=== PATIENT | female | born 1945 | race Caucasian/White ===

== ENCOUNTER 2022-03-03 10:47 | Inpatient (IN) | payer MEDICARE, SELFPAY ==
[2022-03-03] VITALS (30 sets, daily range): BP systolic 66–173; BP diastolic 39–116; PULSE 83–156; RESP 16–97; TEMP 35.8–36.6; O2SAT 93–98; BMI 34.3; BMI 36.4
--- NOTE | 2022-03-03 10:54 | EKG12_ITS ---
Test Reason : PALP Blood Pressure : / mmHG Vent. Rate : 154 BPM Atrial Rate : 182 BPM P-R Int : 000 ms QRS Dur : 084 ms QT Int : 300 ms P-R-T Axes : 000 -48 086 degrees QTc Int : 480 ms Atrial fibrillation Low voltage QRS Left anterior fascicular block Poor R wave progression Anterior NE, age undetermined, cannot be excluded Abnormal ECG Confirmed by BRYANT TORRES, BESS ([id number]), online editor ASA HAAS ([id number]) on 03/05/2022 9:50:39 AM Referred By: REYMUNDO Confirmed By:BESS HURTADO MD
[2022-03-03 11:03] LABS: Absolute Lymphocyte Count 1.51 X10^3/uL (0.83-4.51); Absolute Neutrophil Count 6.1 X10^3/uL (2.0-7.7); Basophil# 0.08 X10^3/uL; Basophil% 0.9 % (0-1); Eosinophil# 0.09 X10^3/uL; Eosinophils% 1.1 % (0-5); Hematocrit 38.1 % (37-47); Hemoglobin 11.9 g/dL (12.0-15.0); Lymphocyte # 1.51 X10^3/ul (0.83-4.51); Lymphocyte % 17.9 % (19-41); Mean Corp Hgb Conc 31.2 g/dL (32-36); Mean Corpuscular Hgb 26.4 pg (27.0-32.0); Mean Corpuscular Volume 84.7 fL (81-99); Mean Platelet Vol. 9.3 fl (6.2-12.0); Monocyte# 0.57 X10^3/uL; Monocyte% 6.8 % (0-10); NRBC Flagged by Analyzer 0 % (0-5); Neutrophil # 6.13 X10^3/uL (2.7-7.7); Neutrophil % 72.6 % (47-70); Platelet Count 331 K/mm3 (150-450); RBC Distribution Width CV 14.4 % (11.6-14.6); White Blood Count 8.4 K/mm3 (4.4-11.0)
--- NOTE | 2022-03-03 11:03 | EDS_ITS ---
HPI History of Present Illness Chief Complaint: Palpitations Narrative Narrative: 76-year-old female presenting with racing heart rate. She states she was at a regular office visit today when it was noted her heart rate was rapid. Her primary care physician told her to take an ambulance to the emergency room however she stated that she felt otherwise well and had no symptoms and she waited for her to come over and pick her up. She states that she still feels fine. She denies chest pain or shortness of breath. She states that she does have high blood pressure and diabetes but these have been well controlled. No cough, fever, chills. No nausea or vomiting. She is eating and drinking normally. She is making normal urine and stool. [facility] Medical History Diabetes mellitus HTN (hypertension) Home Medications aspirin 81 mg PO DAILY 03/03/22 [History Last Taken Unknown] ezetimibe 10 mg PO DAILY 03/03/22 [History Last Taken Unknown] metformin 500 mg PO BIDCM 03/03/22 [History Last Taken Unknown] pantoprazole 40 mg PO DAILY 03/03/22 [History Last Taken Unknown] valsartan-hydrochlorothiazide 1 tab PO DAILY 03/03/22 [History Last Taken Unknown] Allergy/AdvReac Type Severity Reaction Status Date / Time Jxefevx-EHV-BtR Reductase AdvReac Other Verified 03/03/22 10:58 Inhibitor Social History Smoking Status: Never smoker [facility] ED Constitutional Constitutional ED: Denies chills or fever(s) Eyes Eyes: Denies blurry vision or change in vision ENT ENT ED: Denies rhinorrhea or sore throat Cardiovascular Cardiovascular: Reports palpitations; Denies chest pain Respiratory/Chest Respiratory/Chest: Denies cough or dyspnea Gastrointestinal Gastrointestinal: Denies abdominal pain or nausea Genitourinary Genitourinary ED: Denies dysuria or hematuria Musculoskeletal Musculoskeletal: Denies arthralgias or myalgias Integumentary Denies rash Neurologic Neurologic: Denies headache(s) or weakness Psychiatric Psychiatric: Denies anxiety, depression, suicidal ideation or suicidal thoughts EXAM Physical Exam Const Vital Signs: 03/03/22 10:49 03/03/22 10:54 03/03/22 11:03 Temperature 97.8 F Temperature Source Temporal Pulse Rate 156 H Respiratory Rate 18 Respiratory Effort Normal Non-Labored Respiratory Pattern Normal Blood Pressure 173/116 H Blood Pressure Mean 135 Pulse Ox 98 Oxygen Delivery Method Room Air Room Air 03/03/22 12:45 Temperature Temperature Source Pulse Rate 103 H Respiratory Rate 24 H Respiratory Effort Respiratory Pattern Blood Pressure 107/77 Blood Pressure Mean 87 Pulse Ox 94 Oxygen Delivery Method Room Air Positive well nourished General Appearance ED: NAD; Negative for pallor HEENT Reports moist mucous membranes Negative for trauma Eyes PERRL and EOMs intact bilaterally Neck no lymphadenopathy and supple Resp normal respiratory effort and clear to auscultation bilaterally Cardio Rhythm: abnormal rhythm irregularly irregular GI normal to inspection, nondistended, normoactive bowel sounds Extremity normal to inspection General Extremety ED: Negative for edema or tenderness General Extremity: Negative for edema Neuro oriented x3, CN's II-XII intact bilaterally and no sensory deficits noted Sensorium / Orientation: alert Motor Exam: strength 5/5 throughout Psych mental status grossly normal Skin no rashes or lesions noted General Skin Exam: Negative for jaundice or pallor MDM MDM MDM Narrative Medical decision making narrative: Patient presenting with asymptomatic tachycardia. She states that prior to being told to come to the emergency room she felt well. She feels as though she can feel her heart rate currently but does not have any chest pain. She has felt healthy and was just had a regular office visit. EKG obtained on arrival and interpreted by myself shows atrial fibrillation at a rate of 154 bpm without sign of ST elevation or depression. Patient was given 25 mg of Cardizem IV and her heart rate did respond that she was in the 90s. On my interpretation shows mild pulmonary vascular congestion and cardiomegaly and the radiologist does agree. CBC within normal limits. Electrolytes within normal limits. Creatinine is 1.23 without comparison. GFR is 45. High-sensitivity troponin returned at 8 initially. D-dimer was also elevated at 1.20. CTA of the chest was performed which shows no PE but does not identify cardiomegaly and pulmonary vascular congestion. High-sensitivity troponin returned at 67 on the delta troponin and given her new onset A. fib and elevated troponin I believe she will need to stay in the hospital for this. Patient given aspirin 324 mg. Discussed with hospitalist for admission. Impression: 1. Palpitations 2. New onset atrial fibrillation 3. Elevated D-dimer 4. CHF 5. Elevated troponin Lab Data Attestation: I reviewed the patient's lab results. Labs: Laboratory Results - last 24 hr 03/03/22 03/03/22 03/03/22 10:55 10:55 10:55 WBC 8.4 RBC 4.50 Hgb 11.9 L Hct 38.1 MCV 84.7 MCH 26.4 L MCHC 31.2 L RDW Std Deviation 44.0 H RDW Coeff of Shalini 14.4 Plt Count 331 MPV 9.3 Immature Gran % (Auto) 0.700 Neut % (Auto) 72.6 H Lymph % (Auto) 17.9 L [place] % (Auto) 6.8 Eos % (Auto) 1.1 Baso % (Auto) 0.9 Absolute Neuts (auto) 6.1 Absolute Lymphs (auto) 1.51 Nucleated RBC % 0 D-Dimer Quant (PE/DVT) 1.20 H* Sodium 140 Potassium 3.6 Chloride 107 Carbon Dioxide 25.0 Anion Gap 8 BUN 22 H Creatinine 1.23 H Estim Creat Clear Calc 48.85 Est GFR (MDRD) Af Amer 55 L Est GFR (MDRD) Non-Af 45 L BUN/Creatinine Ratio 17.9 Glucose 172 H Calcium 10.2 H Troponin I High Sens 8 03/03/22 13:23 WBC RBC Hgb Hct MCV MCH MCHC RDW Std Deviation RDW Coeff of Shalini Plt Count MPV Immature Gran % (Auto) Neut % (Auto) Lymph % (Auto) [place] % (Auto) Eos % (Auto) Baso % (Auto) Absolute Neuts (auto) Absolute Lymphs (auto) Nucleated RBC % D-Dimer Quant (PE/DVT) Sodium Potassium Chloride Carbon Dioxide Anion Gap BUN Creatinine Estim Creat Clear Calc Est GFR (MDRD) Af Amer Est GFR (MDRD) Non-Af BUN/Creatinine Ratio Glucose Calcium Troponin I High Sens 67 H Radiography Diagnostic Testing: Clinical Impression(s) from Imaging Studies Chest CTA 03/03/22 11:36 IMPRESSION: No evidence of pulmonary embolism. Findings suggestive of mild degree of CHF. Electronically Signed: Luiz Barbosa MD at 13:29 EDT , Chest X-Ray 03/03/22 11:54 IMPRESSION: Mild degree of cardiomegaly with mild degree of CHF. Electronically Signed: Luiz Barbosa MD at 12:17 EDT , Discharge Plan Triage Chief Complaint: Palpitations ED Provider: Felipe Gonsalez Dx/Rx/DC Orders Prescriptions: No Action metformin 500 mg tablet 500 mg PO BIDCM RF: 0 pantoprazole 40 mg tablet,delayed release (DR/EC) 40 mg PO DAILY RF: 0 ezetimibe 10 mg tablet 10 mg PO DAILY RF: 0 valsartan-hydrochlorothiazide 320-12.5 mg tablet 1 tab PO DAILY RF: 0 aspirin 81 mg Tablet 81 mg PO DAILY RF: 0 Primary Care Provider: Anayeli Sears
[2022-03-03] MEDS: 0.9% Normal Saline 1,000 ML 999 ML IV (11:08)
[2022-03-03] MEDS: dilTIAZem 25 MG/5 ML Vial IV BOLUS (11:08)
[2022-03-03 11:21] LABS: Anion Gap 8 (5-15); BUN 22 mg/dL (7-18); BUN/Creat Ratio 17.9 RATIO (10-20); Calcium,Total 10.2 mg/dL (8.5-10.1); Chloride 107 mmol/L (98-107); Creatinine, Serum 1.23 mg/dL (0.55-1.02); EST Glomerular Filtration Rate 45 mL/min (>60); Est Glom Filt Rate - Afr Amer 55 mL/min (>60); Estimated Creatinine Clearance 48.85 ml/min; Glucose 172 mg/dL (74-106); Potassium 3.6 mmol/L (3.5-5.1); Sodium Level 140 mmol/L (136-145); Troponin-I HS (w/2H Reflex) 8 pg/mL (3.0-54.0)
--- NOTE | 2022-03-03 11:36 | CT_ITS ---
STUDY: CTA CHEST REASON FOR EXAM: Female, 76 years old. Chest pain and tachycardia. RADIATION DOSAGE (If Supplied By Facility): CTDIvol = ( 14.43 ) mGy, DLP = ( 441.75 ) mGycm TECHNIQUE: The examination was performed with the intravenous administration of IV 100mL Isovue-370. Post-processing of the angiographic images was performed, with multiplanar reformation and 3D reconstruction. Individualized dose optimization techniques were used for this CT. COMPARISON: Comparison is made with prior chest radiograph done earlier today. FINDINGS: Normal enhancement of the main pulmonary artery and right and left pulmonary arteries. Normal enhancement of the bilateral peripheral pulmonary arteries. There is no demonstrated pulmonary embolism. There is atherosclerotic calcification of the aortic arch with tortuosity. There is no demonstrated aortic dissection. There are calcifications of the coronary arteries. Small pericardial effusion along the posterior dependent portion of the heart. Normal mediastinum. Normal hilar regions. Normal visualized trachea and bronchi. The lungs are well expanded. Diffuse increased interstitial and interseptal markings more prominent in the upper lobes with minimal area of groundglass appearance in both lungs suggestive of a mild degree of CHF. Normal pleura. Normal chest wall structures. There are degenerative changes of thoracic spine. Small hiatal hernia. CT/CTA Chest W/WO Contrast IMPRESSION: No evidence of pulmonary embolism. Findings suggestive of mild degree of CHF. Electronically Signed: Luiz Barbosa MD at 13:29 EDT ,
--- NOTE | 2022-03-03 11:54 | RAD_ITS ---
STUDY: X-RAY CHEST REASON FOR EXAM: Female, 76 years old. Chest pain TECHNIQUE: Single AP portable view of the chest. COMPARISON: None. FINDINGS: EKG electrodes are seen. Findings in keeping with vascular congestion and mild degree of CHF. There is no demonstrated pleural abnormality. There is mild cardiac enlargement. Normal mediastinum and betty. Normal visualized pulmonary arteries. Normal visualized aortic arch and descending thoracic aorta. There are diffuse degenerative changes of the visualized thoracic spine. Normal visualized ribs, clavicles, and shoulders. There is no demonstrated abnormality of the visualized soft tissue structures of the upper abdomen. RAD/Chest 1 View (Portable) IMPRESSION: Mild degree of cardiomegaly with mild degree of CHF. Electronically Signed: Luiz Barbosa MD at 12:17 EDT ,
[2022-03-03 13:01] LABS: Reflex Troponin-HS? (from REC) Y
[2022-03-03 13:46] LABS: Troponin-I HS 67 pg/mL (3.0-54.0)
--- NOTE | 2022-03-03 13:58 | HP.PCM.HOS_ITS ---
HPI - General General Date of Admission: 03/03/22 HPI Narrative CED TODD, is a 76 F with a PMH as outlined who presents via the ED on 03/03/2022 with a complaint of palpitations. She went to see her PCP today, and said she was having palpitations. She denied any dizziness, lightheaded, nausea or vomiting. She has no history of afib. Her PCP got an ambulance to send her to the ED. REview of systems was otherwise negative. Vitals in the ED were BP of 107/77. RR of 103, RR of 24 and saturating of 94% on room air. CBC showed hemoglobin of 11.9 with WBC of 8.4 and platelets of 331. D-dimer was 1.2. Chemistry showed creatinine of 1.23. Initial troponin was 8 and trended up to 67. CTA of the chest done was negative for any evidence of PE but showed findings suggestive of mild CHF. EKG showed A. fib patient, which appears to be new onset A. fib. She has been admitted to be managed for new onset A. fib. [facility] Medical History (Updated 03/04/22 @ 13:18 by Lesa Fabian) Diabetes mellitus HTN (hypertension) New onset atrial fibrillation (03/03/22) Non-ischemic cardiomyopathy Home Medications aspirin [Aspirin Low-Strength] 81 mg PO DAILY 03/03/22 [History Last Taken 03/03/22] ezetimibe 10 mg PO MOWEFR 03/03/22 [History Last Taken 03/03/22] metformin 1,000 mg PO DAILY 03/03/22 [History Last Taken 03/02/22] metformin 500 mg PO DAILY 03/03/22 [History Last Taken 03/03/22] pantoprazole 40 mg PO DAILY 03/03/22 [History Last Taken 03/03/22] valsartan-hydrochlorothiazide 1 tab PO DAILY 03/03/22 [History Last Taken 03/03/22] Allergy/AdvReac Type Severity Reaction Status Date / Time [id number]-TuD Reductase AdvReac Other Verified 03/03/22 10:58 Inhibitor Surgical History (Updated 03/04/22 @ 13:16 by Lesa Fabian) History of left heart catheterization (03/04/22) Social History household members: spouse housing: house Smoking Status: Never smoker ROS Constitutional Constitutional: Denies anorexia, change in weight, chills, fever(s), malaise or weakness Eyes Eyes: Denies change in vision ENT HEENT: Denies dysphagia or headache(s) Cardiovascular Cardiovascular: Reports palpitations and rapid heart rate; Denies chest pain, dyspnea on exertion, edema, lightheadedness, orthopnea, paroxysmal nocturnal dyspnea or syncope Respiratory/Chest Respiratory/Chest: Denies cough, dyspnea, shortness of breath at rest or shortness of breath with exertion Gastrointestinal Gastrointestinal: Denies abdominal pain Genitourinary Genitourinary: Denies burning urination or dysuria Neurologic Neurologic: Denies confusion Psychiatric Psychiatric: Denies anxiety or depression Endocrine Endocrinology: Denies change in body appearance Hematologic/Lymphatic Hematologic/Lymphatic: Reports easy bleeding; Denies anemia Allergic/Immunologic Allergic/Immunologic: Denies asthma Vital Signs Vital Signs Vital Signs: 03/03/22 10:49 03/03/22 10:54 03/03/22 11:03 Temperature 97.8 F Temperature Source Temporal Pulse Rate 156 H Respiratory Rate 18 Respiratory Effort Normal Non-Labored Respiratory Pattern Normal Blood Pressure 173/116 H Blood Pressure Mean 135 Pulse Ox 98 Oxygen Delivery Method Room Air Room Air 03/03/22 12:45 Temperature Temperature Source Pulse Rate 103 H Respiratory Rate 24 H Respiratory Effort Respiratory Pattern Blood Pressure 107/77 Blood Pressure Mean 87 Pulse Ox 94 Oxygen Delivery Method Room Air Weight Weight: 170 lb Body Mass Index (BMI) 34.3 Physical Exam Const alert and oriented x3 General Appearance: cooperative HEENT normocephalic, head/scalp atraumatic, hearing grossly normal bilaterally and moist oral mucous membranes Eyes PERRL, EOMs intact bilaterally and conjunctivae normal Neck no lymphadenopathy and supple Resp Resp Narrative: diminished breath sounds bibasally, no wheezes or crackles. Cardio Cardio Narrative: tachycardic. New onset afib. GI normal to inspection, nondistended, normoactive bowel sounds, soft to palpation, non-tender and non-distended Extremity normal to inspection, full ROM and no clubbing, cyanosis or edema Peripheral Pulses: Yes pulses 2+ throughout Skin no rashes or lesions noted Neuro oriented x3, CN's II-XII intact bilaterally and moves all extremities Sensorium / Orientation: awake and alert Psych affect normal Results Lab / Micro Data Result Diagrams: 03/04/22 05:05 03/04/22 05:05 Labs: Laboratory Results - last 24 hr 03/03/22 10:55: WBC 8.4, RBC 4.50, Hgb 11.9 L, Hct 38.1, MCV 84.7, MCH 26.4 L, MCHC 31.2 L, RDW Std Deviation 44.0 H, RDW Coeff of Shalini 14.4, Plt Count 331, MPV 9.3, Immature Gran % (Auto) 0.700, Neut % (Auto) 72.6 H, Lymph % (Auto) 17.9 L, [place] % (Auto) 6.8, Eos % (Auto) 1.1, Baso % (Auto) 0.9, Absolute Neuts (auto) 6.1, Absolute Lymphs (auto) 1.51, Nucleated RBC % 0 03/03/22 10:55: Sodium 140, Potassium 3.6, Chloride 107, Carbon Dioxide 25.0, Anion Gap 8, BUN 22 H, Creatinine 1.23 H, Estim Creat Clear Calc 48.85, Est GFR (MDRD) Af Amer 55 L, Est GFR (MDRD) Non-Af 45 L, BUN/Creatinine Ratio 17.9, Glucose 172 H, Calcium 10.2 H, Troponin I High Sens 8 03/03/22 10:55: D-Dimer Quant (PE/DVT) 1.20 H* 03/03/22 13:23: Troponin I High Sens 67 H Radiology Impression Chest CTA 03/03/22 11:36 IMPRESSION: No evidence of pulmonary embolism. Findings suggestive of mild degree of CHF. Electronically Signed: Luiz Barbosa MD at 13:29 EDT , Chest X-Ray 03/03/22 11:54 IMPRESSION: Mild degree of cardiomegaly with mild degree of CHF. Electronically Signed: Luiz Barbosa MD at 12:17 EDT , Assessment & Plan Assessment/Plan (1) Afib: PLAN: #Palpitations due to new onset afib * admit to PCU * HR currently in the 90s * check TSH, get 2D echo * check BNP * start on metoprolol 25mg bid * CHADVASC score: at least 3 (for age and gender as well as hypertension) * start on therapeutic lovenox for stroke prophylaxis * #Hypertension; on valsartan and HCTZ. Started on metoprolol due to afib. #Hyperlipidemia: on ezetimibe #Type 2 diabetes mellitus: on metformin 500mg bid. ISS. Accuchecks ACHS. DVT prophylaxis: lovenox therapeutic bid. Code status: full code * Patient and counseled extensively about different types of CODE STATUS including full code, DNR CCA and DNR CCA. Patient elects to be full code. Total [id number] time 17 minutes. Charges/Coding Visit Charges Inpatient E&M: 96698 Init Hosp L3 Procedures Hospitalists Procedures: 42815 Advncd Care Plan 30 Min
[2022-03-03] MEDS: Aspirin 81 MG TAB.CHEW 324 MG PO (14:11)
[2022-03-03 14:39] LABS: BNP,B-Type NATRIURETIC PEPTIDE 199.9 pg/mL (0-100)
[2022-03-03 14:42] LABS: Thyroid Stim Hormone (TSH) 1.65 uIU/mL (0.358-3.74)
--- NOTE | 2022-03-03 14:50 | ECHOD_ITS ---
Reason For Study: ATRIAL FIB FLUTTER Procedure This was a 2D Doppler, Color Flow transthoracic echocardiogram. The study was technically difficult. due to patients rapid heart rate. Exam performed portable in patient room. Left Ventricle Normal LV size. The estimated ejection fraction is 30 %. There is moderate to severe global hypokinesis of the left ventricle. Right Ventricle Normal size and thickness. Mild global right ventricular systolic dysfunction. Atria Normal left atrium. Normal right atrium. Mitral Valve Normal mitral valve. Tricuspid Valve Normal tricuspid valve. Mild to moderate (1-2+) tricuspid valve insufficiency. Pulmonary artery systolic pressure is 58 mmHg. Aortic Valve Normal aortic valve. Pulmonic Valve Normal pulmonic valve. Great Vessels Normal aortic root. The pulmonary artery is normal size. Normal inferior vena cava. Pericardium/Pleural No pericardial effusion. MMode/2D Measurements & Calculations RVDd: 3.6 cm LAV(MOD-bp): 71.0 ml LA A4 area: 21.1 cm2 LAV(MOD-bp) Indexed: 41.8 ml/m2 LAV(MOD-sp2): 73.1 ml LAV(MOD-sp4): 65.0 ml RA A4 area: 20.7 cm2 Doppler Measurements & Calculations Ao V2 max: 116.6 cm/sec LV V1 max: 72.1 cm/sec TR max ari: 361.6 cm/sec Ao max P.4 mmHg LV V1 max P.1 mmHg TR max P.6 mmHg ECHO/Echo Complete Interpretation Summary Normal LV size. The estimated ejection fraction is 30 %. There is moderate to severe global hypokinesis of the left ventricle. Pulmonary artery systolic pressure is 58 mmHg. Mild to moderate (1-2+) tricuspid valve insufficiency. Ordering Physician: Whit Chadwick Performed By: Mari Zuniga RCS
--- NOTE | 2022-03-03 15:15 | CASEMGMT ---
RN CM ASSOCIATE EDITOR CM to room to meet with patient for initial transition planning/care coordination assessment. RN JOSE introduced self and role at [facility]. Pt voices understanding and consents to assessment at this time. Pt resting in bed in no distress at this time. Pt is A/O at this time and answers all questions appropriately. Care providers, pharmacy, and demographics verified/updated at this time. PCP: Dr Sears Specialists: none Preferred Pharmacy: [facility] Retail Insurance: [place] [facility] Advantage HMO Prescription Benefit: Yes Living Will/HPOA: Has both LW and HPOA, who is her , Cassius LNOK: , Cassius. Sons Douglas and Jose Living Arrangements: Lives w/ in 2-story home w/2 steps to enter. Denies difficulty w/stairs. Independent w/ADL's and IADL's. Works 3 days a week as a [employer] Transportation: Pt states drives self and states no transportation concerns at this time. also drives DME: Has functioning glucometer w/supplies and BP machine. Denies further needs HHC/SNF: No hx of either. No needs identified. Pt wishes to return home and states has no concerns with going home at time of discharge. CM to follow for any discharge planning/needs. Pt voices no concerns/needs at this time. Advised pt to ask for CM if any questions/concerns/needs arise. Voices understanding. PLAN: Home w/spousal support and discharge plans in place. CM to follow for anti-coag @ discharge. Tal PAREDES RN, CM
[2022-03-03] MEDS: Metoprolol Tartrate 25 MG Tablet PO ×2 (15:59→22:22)
[2022-03-03] MEDS: Enoxaparin 80 MG/0.8 ML Syringe SC (16:00)
[2022-03-03 16:40] LABS: Bedside Glucose 161 mg/dL (74-106)
[2022-03-03] MEDS: Insulin Lispro 100 UNIT/ML INSULN.PEN SC (16:42)
[2022-03-03 16:49] LABS: Troponin-I HS 136 pg/mL (3.0-54.0)
--- NOTE | 2022-03-03 17:22 | EKG12_ITS ---
Test Reason : DIAPHORETIC Blood Pressure : / mmHG Vent. Rate : 090 BPM Atrial Rate : 104 BPM P-R Int : 000 ms QRS Dur : 084 ms QT Int : 424 ms P-R-T Axes : 000 -47 260 degrees QTc Int : 518 ms Atrial fibrillation Left axis deviation Low voltage QRS Inferior infarct , age undetermined , cannot be excluded Prolonged QT Poor R wave progression Anterior-Lateral AK, age undetermined, cannot be excluded Abnormal ECG Confirmed by BRYANT TORRES, BESS ([id number]), pictures editor ASA HAAS ([id number]) on 03/06/2022 10:16:28 AM Referred By: SHRADDHA Confirmed By:BESS HURTADO MD
--- NOTE | 2022-03-03 18:04 | CON.PCM.CA_ITS ---
Assessment & Plan Assessment/Plan (1) Afib: PLAN: She does have a history of new onset atrial fibrillation. Her ventricular response rate is uncontrolled at this time. She was initially started on intravenous diltiazem but this appears to have dropped her blood pressure. She is therefore receiving some IV fluids. I would recommend that we start her on low-dose beta-raymon in a.m. and titrate upwards as appropriately I would recommend anticoagulation at this time with Lovenox (2) Cardiomyopathy: PLAN: She does have evidence of a cardiomyopathy the etiology of which is unclear. It could be secondary to hypertensive heart disease. Coronary disease needs to be excluded and I would recommend a left heart catheterization and depending on the findings further recommendations will be made. Ultimately she would need an ARB or Entresto She would also need to be on a beta-raymon to be titrated upwards as appropriate (3) CHF (congestive heart failure), NYHA class II: PLAN: She does have evidence of congestive heart failure with an elevated natruretic peptide level, fine rales at the bases, and chest x-ray and CT findings consistent with the above. After her blood pressure is normalized and she is hemodynamically stable I would recommend diuresis She would also continue on guideline directed medical therapy. Thank you for allowing me to participate in the care of your patient. Please don't hesitate to call if any issues arise. HPI Consult Data Date of Consult: 03/03/22 HPI Narrative HPI Narrative: CED TODD, is a 76 F who presents to her primary physician's office for a routine physical. She is noted on arrival that she had an irregular heartbeat and was sent to the emergency room. She has complained of some fatigue but she denies any chest pain or shortness of breath or paroxysmal nocturnal dyspnea or pedal edema she has had no neck arm or jaw discomfort to suggest angina. In the emergency room she was noted to be in atrial fibrillation with a rapid ventricular response rate she had a CT scan done of her chest which excluded pulmonary embolism. She was given intravenous diltiazem and then started on a diltiazem drip and also given oral metoprolol. She did drop her blood pressure to the 70s with a heart rate also in the 70s and requiring intravenous fluid. At the time that I saw her she appeared to be mentating well with a systolic blood pressure of 77 mmHg. An echocardiogram performed demonstrated that his ejection fraction was approximately 30% with global hypokinesis and cardiology was consulted for further evaluation and management. [facility] Medical History Diabetes mellitus HTN (hypertension) Home Medications aspirin [Aspirin Low-Strength] 81 mg PO DAILY 03/03/22 [History Last Taken 03/03/22] ezetimibe 10 mg PO MOWEFR 03/03/22 [History Last Taken 03/03/22] metformin 1,000 mg PO DAILY 03/03/22 [History Last Taken 03/02/22] metformin 500 mg PO DAILY 03/03/22 [History Last Taken 03/03/22] pantoprazole 40 mg PO DAILY 03/03/22 [History Last Taken 03/03/22] valsartan-hydrochlorothiazide 1 tab PO DAILY 03/03/22 [History Last Taken 03/03/22] Allergy/AdvReac Type Severity Reaction Status Date / Time [id number] Reductase AdvReac Other Verified 03/03/22 10:58 Inhibitor Social History household members: spouse housing: house Smoking Status: Never smoker ROS Constitutional Constitutional: Denies fever(s) or weight loss Eyes Eyes: Reports systems reviewed and no addt'l complaints, except as documented ENT HEENT: Reports systems reviewed and no addt'l complaints, except as documented Cardiovascular Cardiovascular: Denies chest pain at rest, chest pain with activity, dyspnea at rest, dyspnea on exertion, edema, palpitations or paroxysmal nocturnal dyspnea Respiratory/Chest Respiratory/Chest: Denies dyspnea on exertion, productive cough, shortness of breath at rest or shortness of breath with exertion Gastrointestinal Gastrointestinal: Denies change in bowel habits, nausea, vomiting or weight changes Genitourinary Genitourinary: Denies difficulty urinating Musculoskeletal Musculoskeletal: Denies joint stiffness or muscle weakness Integumentary Integumentary: Denies lesions Neurologic Neurologic: Denies dizziness or syncope Psychiatric Psychiatric: Denies anxiety Endocrine Endocrinology: Denies excessive sweating or fatigue Hematologic/Lymphatic Hematologic/Lymphatic: Denies anemia Allergic/Immunologic Allergic/Immunologic: Denies seasonal rhinorrhea Physical Exam Const alert, oriented x3 and no apparent distress General Appearance: cooperative HEENT hearing grossly normal bilaterally Head and Scalp: atraumatic Eyes EOMs intact bilaterally Neck General: normal visual inspection Chest inspection of chest normal and palpation of chest normal Resp normal respiratory effort Auscultation: clear to auscultation bilaterally Cardio S1 normal heart sound and S2 normal heart sound Jugular Venous Distention: JVD Rhythm: abnormal rhythm GI normal to inspection, nondistended, normoactive bowel sounds Extremity normal capillary refill and no pedal edema Peripheral Pulses: Yes pulses 2+ throughout and femoral pulses present Skin no rashes or lesions noted Neuro oriented x3 and CN's II-XII intact bilaterally Psych Appearance: grossly normal and appropriate Risk Stratification Risk Stratification Applicable: No Objective Data Vital Signs: Vital Signs Temp Pulse Resp BP Pulse Ox 97.1 F L 85 97 H 84/60 L 95 03/03/22 15:05 03/03/22 17:45 03/03/22 17:15 03/03/22 17:45 03/03/22 17:00 Oxygen Delivery Method Room Air Weight: 180 lb 5.41 oz Body Mass Index (BMI) 36.4 Intake & Output: Intake and Output for Last 24 Hours 03/01/22 03/02/22 03/03/22 23:59 23:59 23:59 Intake Total 1010.83 / 1010.83 Balance 1010.83 / 1010.83 Lab / Micro Data Result Diagrams: 03/03/22 10:55 03/03/22 10:55 Labs: Laboratory Results - last 24 hr 03/03/22 10:55: WBC 8.4, RBC 4.50, Hgb 11.9 L, Hct 38.1, MCV 84.7, MCH 26.4 L, MCHC 31.2 L, RDW Std Deviation 44.0 H, RDW Coeff of Shalini 14.4, Plt Count 331, MPV 9.3, Immature Gran % (Auto) 0.700, Neut % (Auto) 72.6 H, Lymph % (Auto) 17.9 L, [place] % (Auto) 6.8, Eos % (Auto) 1.1, Baso % (Auto) 0.9, Absolute Neuts (auto) 6.1, Absolute Lymphs (auto) 1.51, Nucleated RBC % 0 03/03/22 10:55: Sodium 140, Potassium 3.6, Chloride 107, Carbon Dioxide 25.0, Anion Gap 8, BUN 22 H, Creatinine 1.23 H, Estim Creat Clear Calc 48.85, Est GFR (MDRD) Af Amer 55 L, Est GFR (MDRD) Non-Af 45 L, BUN/Creatinine Ratio 17.9, Glucose 172 H, Calcium 10.2 H, Troponin I High Sens 8 03/03/22 10:55: D-Dimer Quant (PE/DVT) 1.20 H* 03/03/22 10:55: TSH 1.65 03/03/22 10:55: B-Natriuretic Peptide 199.9 H 03/03/22 13:23: Troponin I High Sens 67 H 03/03/22 16:00: Troponin I High Sens 136 H* 03/03/22 16:34: POC Glucose 161 H Cardiology Labs/Tests 03/03/22 10:55: WBC 8.4, RBC 4.50, Hgb 11.9 L, Hct 38.1, MCV 84.7, MCH 26.4 L, MCHC 31.2 L, Plt Count 331, MPV 9.3, Immature Gran % (Auto) 0.700, Neut % (Auto) 72.6 H, Lymph % (Auto) 17.9 L, [place] % (Auto) 6.8, Eos % (Auto) 1.1, Baso % (Auto) 0.9, Absolute Neuts (auto) 6.1, Nucleated RBC % 0 03/03/22 10:55: Sodium 140, Potassium 3.6, Chloride 107, Carbon Dioxide 25.0, Anion Gap 8, BUN 22 H, Creatinine 1.23 H, Est GFR (MDRD) Af Amer 55 L, Est GFR (MDRD) Non-Af 45 L, BUN/Creatinine Ratio 17.9, Glucose 172 H, Calcium 10.2 H 03/03/22 10:55: D-Dimer Quant (PE/DVT) 1.20 H* 03/03/22 10:55: B-Natriuretic Peptide 199.9 H Rhythm: EKG: ECHO: Stress Test: Cardiac Cath: PCI: CT Surgery: Holter monitor: EPS: PPM: CXR: Chest CT Scan: Radiography Diagnostic Testing: Radiology Impression Chest CTA 03/03/22 11:36 IMPRESSION: No evidence of pulmonary embolism. Findings suggestive of mild degree of CHF. Electronically Signed: Luiz Barbosa MD at 13:29 EDT , Chest X-Ray 03/03/22 11:54 IMPRESSION: Mild degree of cardiomegaly with mild degree of CHF. Electronically Signed: Luiz Barbosa MD at 12:17 EDT , Echocardiogram 03/03/22 14:50 Interpretation Summary Normal LV size. The estimated ejection fraction is 30 %. There is moderate to severe global hypokinesis of the left ventricle. Pulmonary artery systolic pressure is 58 mmHg. Mild to moderate (1-2+) tricuspid valve insufficiency. __ Ordering Physician: Whit Chadwick Performed By: Mari Zuniga RCS
[2022-03-03] MEDS: Digoxin 250 MCG/ML Ampul 500 MCG IV (20:43)
[2022-03-03 22:35] LABS: Bedside Glucose 147 mg/dL (74-106)
[2022-03-04] VITALS (32 sets, daily range): BP systolic 96–141; BP diastolic 67–105; PULSE 83–115; RESP 16–31; TEMP 36.4–37.1; O2SAT 86–100
[2022-03-04 05:18] LABS: Absolute Neutrophil Count 11.8 X10^3/uL (2.0-7.7); Basophil# 0.03 X10^3/uL; Basophil% 0.2 % (0-1); Eosinophil# 0.01 X10^3/uL; Eosinophils% 0.1 % (0-5); Hematocrit 37.9 % (37-47); Hemoglobin 11.8 g/dL (12.0-15.0); Lymphocyte % 8.3 % (19-41); Mean Corp Hgb Conc 31.1 g/dL (32-36); Mean Corpuscular Hgb 26.5 pg (27.0-32.0); Mean Platelet Vol. 10.8 fl (6.2-12.0); Monocyte# 1.25 X10^3/uL; Monocyte% 8.7 % (0-10); NRBC Flagged by Analyzer 0 % (0-5); Neutrophil # 11.81 X10^3/uL (2.7-7.7); Neutrophil % 81.9 % (47-70); Platelet Count 340 K/mm3 (150-450); RBC Distribution Width CV 14.6 % (11.6-14.6); RBC Distribution Width SD 45.1 fl (35.1-43.9); Red Blood Count 4.46 M/mm3 (4.2-5.4); White Blood Count 14.4 K/mm3 (4.4-11.0)
[2022-03-04 05:31] LABS: Anion Gap 9 (5-15); BUN 25 mg/dL (7-18); BUN/Creat Ratio 16.8 RATIO (10-20); Calcium,Total 9.5 mg/dL (8.5-10.1); Chloride 108 mmol/L (98-107); Creatinine, Serum 1.49 mg/dL (0.55-1.02); EST Glomerular Filtration Rate 36 mL/min (>60); Est Glom Filt Rate - Afr Amer 44 mL/min (>60); Estimated Creatinine Clearance 42.78 ml/min; Glucose 174 mg/dL (74-106); Potassium 4.8 mmol/L (3.5-5.1); Sodium Level 139 mmol/L (136-145)
[2022-03-04] MEDS: Losartan Potassium 100 MG Tablet PO (06:33)
[2022-03-04] MEDS: Aspirin 81 MG TAB.CHEW PO (06:33)
[2022-03-04] MEDS: Metoprolol Tartrate 25 MG Tablet PO (06:33)
[2022-03-04] MEDS: 0.9% Normal Saline 1,000 ML 15 ML IV (06:34)
[2022-03-04] MEDS: hydroCHLOROthiazide 12.5mg 12.5 MG PO (06:34)
[2022-03-04] MEDS: Pantoprazole Sodium 40 MG Tablet PO (06:34)
[2022-03-04 06:46] LABS: Bedside Glucose 161 mg/dL (74-106)
--- NOTE | 2022-03-04 06:49 | CON.PCM.CC_ITS ---
Assessment & Plan Assessment/Plan (1) Hypotension: PLAN: RECOMMENDATIONS: 1. Continue current medical management per cardiology recommendations. 2. Proceed with cardiac catheterization. 3. Encourage incentive spirometer use while in bed. 4. Given the patient's lack of further ICU or pulmonary needs, will sign off. Please call with any additional questions. IMPRESSIONS: 1. Hypotension The patient was transferred to the medical intensive care unit yesterday after she developed hypotension, which appears to be secondary to Cardizem utilization for control of her atrial fibrillation. With cessation of the aforementioned medication and gentle IV fluid resuscitation, the patient's hemodynamic status has normalized. 2. New onset atrial fibrillation with cardiomyopathy of unclear etiology Continue current rate/rhythm control strategy per cardiology recommendations. Given the patient's depressed ejection fraction noted on echocardiogram, there are tentative plans to rule out an ischemic etiology with catheterization today. 3. Obesity/hypertension/hyperlipidemia/diabetes mellitus Complicates care, management, recovery and prognosis. Continue home medications as indicated. This note was generated with [employer] dictation software. It may contain incorrect words, spelling, and punctuation that were not noted in checking the note before signing. HPI Consult Data Date of Consult: 03/04/22 HPI Narrative Reason for Consultation: Hypotension HPI Narrative: The patient is a 76-year-old female, with a history as outlined below, who presented to the emergency department on March 03 after being referred there by her primary care provider with heart palpitations. On presentation to the emergency department, the patient was noted to be afebrile but was notably tachycardic and hypertensive. She was subsequently found to be in atrial fibrillation with a rapid ventricular rate. Laboratory evaluation revealed no evidence of a leukocytosis. Chemistry profile was notable for a creatinine of 1.23 with a BNP of 200 and troponin of 67. CTA chest showed no evidence for pulmonary embolism, but did demonstrate mild ground glass changes concerning for edema. The patient was initially medically managed with beta-blockade and Cardizem. She was admitted to the progressive care unit for further management. Unfortunately, the Cardizem led to hemodynamic instability, thus necessitating transfer to the medical intensive care unit. However, after cessation of the calcium channel raymon and fluid resuscitation, the patient's hemodynamic status normalized. She did have an echocardiogram completed last evening which revealed an ejection fraction of approximately 30% with moderate to severe g lobal hypokinesis of the LV with a pulmonary artery systolic pressure estimated to be 58 mmHg. There are tentative plans for cardiac catheterization today. [facility] Medical History Diabetes mellitus HTN (hypertension) Home Medications aspirin [Aspirin Low-Strength] 81 mg PO DAILY 03/03/22 [History Last Taken 03/03/22] ezetimibe 10 mg PO MOWEFR 03/03/22 [History Last Taken 03/03/22] metformin 1,000 mg PO DAILY 03/03/22 [History Last Taken 03/02/22] metformin 500 mg PO DAILY 03/03/22 [History Last Taken 03/03/22] pantoprazole 40 mg PO DAILY 03/03/22 [History Last Taken 03/03/22] valsartan-hydrochlorothiazide 1 tab PO DAILY 03/03/22 [History Last Taken 03/03/22] Allergy/AdvReac Type Severity Reaction Status Date / Time Cohonpi-KJQ-AaR Reductase AdvReac Other Verified 03/03/22 10:58 Inhibitor Social History household members: spouse housing: house Smoking Status: Never smoker ROS Constitutional Constitutional: Denies chills, fatigue or fever(s) Eyes Eyes: Denies blurry vision or change in vision ENT HEENT: Reports dizziness; Denies headache(s) or hoarseness Cardiovascular Cardiovascular: Reports dizziness and irregular heart rhythm; Denies chest pain Respiratory/Chest Respiratory/Chest: Denies chest tightness, cough or dyspnea Gastrointestinal Gastrointestinal: Denies abdominal pain, diarrhea, nausea or vomiting Genitourinary Genitourinary: Denies difficulty urinating Musculoskeletal Musculoskeletal: Denies arthralgias, back pain or joint pain Integumentary Integumentary: Denies lesions, rash or skin ulcer Neurologic Neurologic: Denies abnormal gait or abnormal speech Psychiatric Psychiatric: Denies anxiety or depression Endocrine Endocrinology: Denies fatigue or polydipsia Hematologic/Lymphatic Hematologic/Lymphatic: Denies easy bleeding or easy bruising Physical Exam Const alert, oriented x3 and no apparent distress General Appearance: cooperative Nutritional Appearance: obese HEENT normocephalic, head/scalp atraumatic and moist oral mucous membranes Eyes PERRL, EOMs intact bilaterally and conjunctivae normal Neck supple General: trachea midline Chest inspection of chest normal Resp normal respiratory effort Auscultation: Negative for rales, rhonchi or wheezes Cardio S1 normal heart sound and S2 normal heart sound Rhythm: abnormal rhythm GI normal to inspection, nondistended, normoactive bowel sounds Extremity no clubbing, cyanosis or edema Skin no rashes or lesions noted Neuro CN's II-XII intact bilaterally, moves all extremities and no focal motor deficits Psych cooperative and affect normal Lab / Micro Data Result Diagrams: 03/04/22 05:05 03/04/22 05:05 Labs: Laboratory Results - last 24 hr 03/03/22 10:55: WBC 8.4, RBC 4.50, Hgb 11.9 L, Hct 38.1, MCV 84.7, MCH 26.4 L, MCHC 31.2 L, RDW Std Deviation 44.0 H, RDW Coeff of Shalini 14.4, Plt Count 331, MPV 9.3, Immature Gran % (Auto) 0.700, Neut % (Auto) 72.6 H, Lymph % (Auto) 17.9 L, [place] % (Auto) 6.8, Eos % (Auto) 1.1, Baso % (Auto) 0.9, Absolute Neuts (auto) 6.1, Absolute Lymphs (auto) 1.51, Nucleated RBC % 0 03/03/22 10:55: Sodium 140, Potassium 3.6, Chloride 107, Carbon Dioxide 25.0, Anion Gap 8, BUN 22 H, Creatinine 1.23 H, Estim Creat Clear Calc 48.85, Est GFR (MDRD) Af Amer 55 L, Est GFR (MDRD) Non-Af 45 L, BUN/Creatinine Ratio 17.9, Glucose 172 H, Calcium 10.2 H, Troponin I High Sens 8 03/03/22 10:55: D-Dimer Quant (PE/DVT) 1.20 H* 03/03/22 10:55: TSH 1.65 03/03/22 10:55: B-Natriuretic Peptide 199.9 H 03/03/22 13:23: Troponin I High Sens 67 H 03/03/22 16:00: Troponin I High Sens 136 H* 03/03/22 16:34: POC Glucose 161 H 03/03/22 22:26: POC Glucose 147 H 03/04/22 05:05: WBC 14.4 H, RBC 4.46, Hgb 11.8 L, Hct 37.9, MCV 85.0, MCH 26.5 L , MCHC 31.1 L, RDW Std Deviation 45.1 H, RDW Coeff of Shalini 14.6, Plt Count 340, MPV 10.8, Immature Gran % (Auto) 0.800, Neut % (Auto) 81.9 H, Lymph % (Auto) 8.3 L, [place] % (Auto) 8.7, Eos % (Auto) 0.1, Baso % (Auto) 0.2, Absolute Neuts (auto) 11.8 H, Absolute Lymphs (auto) 1.20, Nucleated RBC % 0 03/04/22 05:05: Sodium 139, Potassium 4.8, Chloride 108 H, Carbon Dioxide 22.0, Anion Gap 9, BUN 25 H, Creatinine 1.49 H, Estim Creat Clear Calc 42.78, Est GFR (MDRD) Af Amer 44 L, Est GFR (MDRD) Non-Af 36 L, BUN/Creatinine Ratio 16.8, Glucose 174 H, Calcium 9.5 03/04/22 06:31: POC Glucose 161 H Radiology Impression Chest CTA 03/03/22 11:36 IMPRESSION: No evidence of pulmonary embolism. Findings suggestive of mild degree of CHF. Electronically Signed: Luiz Barbosa MD at 13:29 EDT , Chest X-Ray 03/03/22 11:54 IMPRESSION: Mild degree of cardiomegaly with mild degree of CHF. Electronically Signed: Luiz Barbosa MD at 12:17 EDT , Echocardiogram 03/03/22 14:50 Interpretation Summary Normal LV size. The estimated ejection fraction is 30 %. There is moderate to severe global hypokinesis of the left ventricle. Pulmonary artery systolic pressure is 58 mmHg. Mild to moderate (1-2+) tricuspid valve insufficiency. Ordering Physician: Whit Chadwick Performed By: Mari Zuniga RCS Charges/Coding Visit Charges Inpatient E&M: 58370 Init Hosp L2
--- NOTE | 2022-03-04 08:33 | CASEMGMT ---
According to the [facility] website, the following are in-network tertiary facilities: [facility], [place], [facility], [place], [facility], [facility], [place], [facility], and . Delvin DENISE CM
--- NOTE | 2022-03-04 09:27 | PN.HOSP_ITS ---
Subjective Subjective Patient seen and examined. She was emergently transferred to the ICU overnight o/a of hypotension due to cardizem drip. She feels much better today, though she says she wasnt able to sleep well. Her heart rate is much better controlled on PO metoprolol. Review of systems is otherwise negative. She is due for cardiac cath today. Objective Data Objective Data Vital Signs: Vital Signs Temp Pulse Resp BP Pulse Ox 97.6 F L 97 23 H 129/90 H 98 03/04/22 08:00 03/04/22 09:00 03/04/22 09:00 03/04/22 09:00 03/04/22 09:00 Oxygen Flow Rate (L/min) 2 Oxygen Delivery Method Room Air Weight: 182 lb 15.739 oz Body Mass Index (BMI) 36.4 Intake & Output: Intake and Output for Last 24 Hours 03/02/22 03/03/22 03/04/22 23:59 23:59 23:59 Intake Total 2330.83 / 2330.83 41.5 / 41.5 Balance 2330.83 / 2330.83 41.5 / 41.5 Lab / Micro Data Result Diagrams: 03/04/22 05:05 03/04/22 05:05 Labs: Laboratory Results - last 24 hr 03/03/22 10:55: WBC 8.4, RBC 4.50, Hgb 11.9 L, Hct 38.1, MCV 84.7, MCH 26.4 L, MCHC 31.2 L, RDW Std Deviation 44.0 H, RDW Coeff of Shalini 14.4, Plt Count 331, MPV 9.3, Immature Gran % (Auto) 0.700, Neut % (Auto) 72.6 H, Lymph % (Auto) 17.9 L, [place] % (Auto) 6.8, Eos % (Auto) 1.1, Baso % (Auto) 0.9, Absolute Neuts (auto) 6.1, Absolute Lymphs (auto) 1.51, Nucleated RBC % 0 03/03/22 10:55: Sodium 140, Potassium 3.6, Chloride 107, Carbon Dioxide 25.0, Anion Gap 8, BUN 22 H, Creatinine 1.23 H, Estim Creat Clear Calc 48.85, Est GFR (MDRD) Af Amer 55 L, Est GFR (MDRD) Non-Af 45 L, BUN/Creatinine Ratio 17.9, Glucose 172 H, Calcium 10.2 H, Troponin I High Sens 8 03/03/22 10:55: D-Dimer Quant (PE/DVT) 1.20 H* 03/03/22 10:55: TSH 1.65 03/03/22 10:55: B-Natriuretic Peptide 199.9 H 03/03/22 13:23: Troponin I High Sens 67 H 03/03/22 16:00: Troponin I High Sens 136 H* 03/03/22 16:34: POC Glucose 161 H 03/03/22 22:26: POC Glucose 147 H 03/04/22 05:05: WBC 14.4 H, RBC 4.46, Hgb 11.8 L, Hct 37.9, MCV 85.0, MCH 26.5 L , MCHC 31.1 L, RDW Std Deviation 45.1 H, RDW Coeff of Shalini 14.6, Plt Count 340, MPV 10.8, Immature Gran % (Auto) 0.800, Neut % (Auto) 81.9 H, Lymph % (Auto) 8.3 L, [place] % (Auto) 8.7, Eos % (Auto) 0.1, Baso % (Auto) 0.2, Absolute Neuts (auto) 11.8 H, Absolute Lymphs (auto) 1.20, Nucleated RBC % 0 03/04/22 05:05: Sodium 139, Potassium 4.8, Chloride 108 H, Carbon Dioxide 22.0, Anion Gap 9, BUN 25 H, Creatinine 1.49 H, Estim Creat Clear Calc 42.78, Est GFR (MDRD) Af Amer 44 L, Est GFR (MDRD) Non-Af 36 L, BUN/Creatinine Ratio 16.8, Glucose 174 H, Calcium 9.5 03/04/22 06:31: POC Glucose 161 H Radiography Diagnostic Testing: Radiology Impression Chest CTA 03/03/22 11:36 IMPRESSION: No evidence of pulmonary embolism. Findings suggestive of mild degree of CHF. Electronically Signed: Luiz Barbosa MD at 13:29 EDT , Chest X-Ray 03/03/22 11:54 IMPRESSION: Mild degree of cardiomegaly with mild degree of CHF. Electronically Signed: Luiz Barbosa MD at 12:17 EDT , Echocardiogram 03/03/22 14:50 Interpretation Summary Normal LV size. The estimated ejection fraction is 30 %. There is moderate to severe global hypokinesis of the left ventricle. Pulmonary artery systolic pressure is 58 mmHg. Mild to moderate (1-2+) tricuspid valve insufficiency. Ordering Physician: Whit Chadwick Performed By: Mari Zuniga RCS Physical Exam Const alert, oriented x3 and no apparent distress General Appearance: cooperative HEENT normocephalic, head/scalp atraumatic, hearing grossly normal bilaterally and moist oral mucous membranes Head and Scalp: normocephalic Eyes PERRL, EOMs intact bilaterally and conjunctivae normal Neck no lymphadenopathy and supple Resp normal respiratory effort Resp Narrative: diminished breath sounds bibasally, no wheezes or crackles. Cardio Cardio Narrative: afib, rate controlled. GI normal to inspection, nondistended, normoactive bowel sounds, soft to palpation, non-tender and non-distended Extremity normal to inspection, full ROM and no clubbing, cyanosis or edema Peripheral Pulses: Yes pulses 2+ throughout Skin no rashes or lesions noted Neuro oriented x3, CN's II-XII intact bilaterally and moves all extremities Sensorium / Orientation: awake and alert Psych affect normal Assessment & Plan Assessment/Plan (1) Afib: PLAN: #New onset afib with RVR * RVR has resolved. HR is now in the 90s * HR went up into the 150s and 160s yesterday after she was admitted to the floor; she was therefore started on cardizem drip, but subsequently became hypotensive, requiring a bolus of NS 500cc * she was eventually transferred to the ICU o/a of hypotension. * 2D echo showed EF of 30% with moderate to severe global hypokinesis of the left ventricle and mild right ventricular systolic dysfunction * TSH was WNL * on metoprolol 25mg bid * cardiology on board * on therapeutic lovenox for stroke prophylaxis * * * #Hypertension; on valsartan and HCTZ. Started on metoprolol due to afib. #Hyperlipidemia: on ezetimibe #Type 2 diabetes mellius: on metformin 500mg bid. ISS. Accuchecks ACHS. DVT prophylaxis: lovenox therapeutic bid. Code status: full code * Charges/Coding Visit Charges Inpatient E&M: 04556 Subs Hosp L2
[2022-03-04] MEDS: 0.9% Saline Lock 10 ML Syringe IV (11:28)
[2022-03-04 11:35] LABS: Bedside Glucose 192 mg/dL (74-106)
--- NOTE | 2022-03-04 13:01 | PN.CARD_ITS ---
Subjective Subjective The patient seen and evaluated. Appears to be doing well. Underwent cardiac catheterization today Objective Data Vital Signs: Vital Signs Temp Pulse Resp BP Pulse Ox 98.4 F 99 25 H 116/92 H 97 03/04/22 10:00 03/04/22 11:05 03/04/22 11:00 03/04/22 11:00 03/04/22 11:00 Oxygen Flow Rate (L/min) 2 Oxygen Delivery Method Nasal Cannula Weight: 182 lb 15.739 oz Body Mass Index (BMI) 36.4 Intake & Output: Intake and Output for Last 24 Hours 03/02/22 03/03/22 03/04/22 23:59 23:59 23:59 Intake Total 2330.83 / 2330.83 41.5 / 41.5 Balance 2330.83 / 2330.83 41.5 / 41.5 Lab / Micro Data Result Diagrams: 03/04/22 05:05 03/04/22 05:05 Labs: Laboratory Results - last 24 hr 03/03/22 10:55: TSH 1.65 03/03/22 10:55: B-Natriuretic Peptide 199.9 H 03/03/22 13:23: Troponin I High Sens 67 H 03/03/22 16:00: Troponin I High Sens 136 H* 03/03/22 16:34: POC Glucose 161 H 03/03/22 22:26: POC Glucose 147 H 03/04/22 05:05: WBC 14.4 H, RBC 4.46, Hgb 11.8 L, Hct 37.9, MCV 85.0, MCH 26.5 L , MCHC 31.1 L, RDW Std Deviation 45.1 H, RDW Coeff of Shalini 14.6, Plt Count 340, MPV 10.8, Immature Gran % (Auto) 0.800, Neut % (Auto) 81.9 H, Lymph % (Auto) 8.3 L, [place] % (Auto) 8.7, Eos % (Auto) 0.1, Baso % (Auto) 0.2, Absolute Neuts (auto) 11.8 H, Absolute Lymphs (auto) 1.20, Nucleated RBC % 0 03/04/22 05:05: Sodium 139, Potassium 4.8, Chloride 108 H, Carbon Dioxide 22.0, Anion Gap 9, BUN 25 H, Creatinine 1.49 H, Estim Creat Clear Calc 42.78, Est GFR (MDRD) Af Amer 44 L, Est GFR (MDRD) Non-Af 36 L, BUN/Creatinine Ratio 16.8, Glucose 174 H, Calcium 9.5 03/04/22 06:31: POC Glucose 161 H 03/04/22 11:01: POC Glucose 192 H Cardiology Labs/Tests 03/03/22 10:55: B-Natriuretic Peptide 199.9 H 03/04/22 05:05: WBC 14.4 H, RBC 4.46, Hgb 11.8 L, Hct 37.9, MCV 85.0, MCH 26.5 L , MCHC 31.1 L, Plt Count 340, MPV 10.8, Immature Gran % (Auto) 0.800, Neut % (Auto) 81.9 H, Lymph % (Auto) 8.3 L, [place] % (Auto) 8.7, Eos % (Auto) 0.1, Baso % (Auto) 0.2, Absolute Neuts (auto) 11.8 H, Nucleated RBC % 0 03/04/22 05:05: Sodium 139, Potassium 4.8, Chloride 108 H, Carbon Dioxide 22.0, Anion Gap 9, BUN 25 H, Creatinine 1.49 H, Est GFR (MDRD) Af Amer 44 L, Est GFR ( MDRD) Non-Af 36 L, BUN/Creatinine Ratio 16.8, Glucose 174 H, Calcium 9.5 Rhythm: EKG: ECHO: Stress Test: Cardiac Cath: PCI: CT Surgery: Holter monitor: EPS: PPM: CXR: Chest CT Scan: Radiography Diagnostic Testing: Radiology Impression Chest CTA 03/03/22 11:36 IMPRESSION: No evidence of pulmonary embolism. Findings suggestive of mild degree of CHF. Electronically Signed: Luiz Barbosa MD at 13:29 EDT , Echocardiogram 03/03/22 14:50 Interpretation Summary Normal LV size. The estimated ejection fraction is 30 %. There is moderate to severe global hypokinesis of the left ventricle. Pulmonary artery systolic pressure is 58 mmHg. Mild to moderate (1-2+) tricuspid valve insufficiency. Ordering Physician: Whit Chadwick Performed By: Mari Zuniga RCS Physical Exam Const alert, oriented x3 and no apparent distress General Appearance: cooperative HEENT hearing grossly normal bilaterally Eyes EOMs intact bilaterally Neck General: normal visual inspection Chest inspection of chest normal and palpation of chest normal Resp normal respiratory effort Auscultation: clear to auscultation bilaterally Cardio S1 normal heart sound and S2 normal heart sound Jugular Venous Distention: JVD Rhythm: abnormal rhythm GI normal to inspection, nondistended, normoactive bowel sounds Extremity normal capillary refill and no pedal edema Skin no rashes or lesions noted Neuro oriented x3 and CN's II-XII intact bilaterally Psych Appearance: grossly normal and appropriate Assessment & Plan Assessment/Plan (1) Afib: PLAN: She does have a history of new onset atrial fibrillation. Her ventricular response rate is uncontrolled at this time. * Would recommend starting her on carvedilol 6.25 mg twice a day * Will start Eliquis 5 mg twice a day (2) Cardiomyopathy: PLAN: She does have evidence of a cardiomyopathy The cardiac catheterization today demonstrated normal coronary arteries with a Takotsubo cardiomyopathy. The exact precipitating stressful factor is not clear at this time. * Would recommend continuing losartan * Continue beta-raymon with carvedilol 6.25 twice a day and titrate upwards as appropriate * Continue low-dose diuretic * Will need a repeat echocardiogram in 6 weeks to 3 months (3) CHF (congestive heart failure), NYHA class II: PLAN: She does have evidence of congestive heart failure with an elevated natruretic peptide level, fine rales at the bases, and chest x-ray and CT findings consistent with the above. After her blood pressure is normalized and she is hemodynamically stable I would recommend diuresis She would also continue on guideline directed medical therapy. Would recommend overnight observation before discharge. Thank you for allowing me to participate in the care of your patient. Please don't hesitate to call if any issues arise.
--- NOTE | 2022-03-04 13:11 | CL.D_ITS ---
Patient Name: CED TODD Study Date: 03/04/2022 Performing: Bernardo Mireles MD Ht: 59 inches 150 cm : 1945 Wt: 183.2 lbs 83 kg Age: 76 Gender: female BSA: 1.78 PROCEDURE(S) PERFORMED [id number])LHC/COR/LV CLINICAL PROFILE AND INDICATIONS Indications: Cardiac Arrythmia, Cardiomyopathy Heart Failure: NYHA Class: 2, Newly Diagnosed: Yes, Heart Failure Type: Systolic Stress/Imaging Stress/Image Study Performed: No CAD Presentations: Symptom unlikely to be ischemic. CONCLUSIONS Cardiomyopathy: Takotsubo RECOMMENDATIONS Medical therapy DESCRIPTION OF PROCEDURE The patient arrived to the procedure lab. The risks and benefits of the procedure as well as a full d escription of our services here and current unavailability of surgical backup were fully explained to the patient and/or their significant other prior to the catheterization. The Timeout was completed, verifying the correct patient and procedure. The patient's procedural site was prepped and draped in the usual fashion. Local anesthetic was given subcutaneously to right radial region with Lidocaine 2% . Using a modified Seldinger technique, arterial access was obtained via the right radial artery, a 6 Fr sheath was inserted. Left Coronary Artery selective angiography was performed in multiple views u sing a 5 Fr. 4.0 Omega catheter. Right Coronary Artery selective angiography was then performed in mu ltiple views using a 5 Fr. 4.0 Omega catheter. Left Ventriculography was performed in RUIZ projection using a 5 Fr. Pigtail catheter. LV to AO pullback pressures were then recorded.The arterial sheath was pulled and a TR Band was applied for hemostasis CORONARY ANGIOGRAPHY DOMINANCE: Right Dominant LEFT HEART ASSESSMENT Left Ventricular Ejection Fraction: by LV Gram 25 % Global Hypokinesis - Severe LEFT MAIN: Angiographically normal LEFT ANTERIOR DESCENDING ARTERY: Angiographically normal CIRCUMFLEX ARTERY: Angiographically normal RIGHT CORONARY ARTERY: Angiographically normal COMPLICATIONS No Complications PROCEDURE MEDICATIONS Fentanyl 50 mcg IV Versed 1 mg IV Versed 1 mg IV Oxygen: 2 L/min via nasal cannula Heparin given IA 03/04/2022 12:29:41 SUMMARY OF HEMODYNAMIC DATA Time AIR REST ECG 11:41:18 ECG 11:41:48 Art 141/74 (93) 12:08:43 AO 137/88 (112) SA 12:31:03 LV 123/20, 23 12:36:44 LV 121/21, 24 12:36:50 LV 115/21, 25 12:37:45 LVp 118/23, 26 12:37:50 AOp 127/84 (105) 12:37:55 Signed By Bernardo Mireles MD On 03/04/2022 13:10:41 Bernardo Mireles MD
[2022-03-04] MEDS: Ezetimibe 10 MG Tablet PO (13:26)
[2022-03-04 13:29] LABS: Troponin-I HS 160 pg/mL (3.0-54.0)
--- NOTE | 2022-03-04 15:49 | CHAPLAIN ---
Type of Pastoral Visit _x__ Initial Visit ___ Follow-up Visit ___ On-call Visit ___ General Patient Visit ___ Spiritual Assessment ___ Family Conference ___ Bereavement ___ Rapid Response ___ Code Blue ___ Other (describe below) Pastoral Care Referral From _x__ Patient ___ Family ___ Nurse ___ Physician ___ Account Support Specialist ___ Distance Education Coordinator ___ Other (describe below) Sacrament/Intervention _x__ Active listening ___ Anointing ___ Rastafarian ___ Bereavement ___ Communion _x__ Daisy exploration ___ _x__ Life review _x__ Prayer ___ Reconciliation ___ Sacrament of Sick _x__ Supportive presence ___ Wedding ___ Other (describe below) Pastoral Comments met with this patient and her spouse while she was in ICU after return from [facility]; pt is alert and sitting in chair; pt is welcoming and talkative; pt speaks of procedure and how it came to be from her doctor's office; pt speaks of desire to go on vacation in a week and to return to her work [employer]; pt also speaks of her hoahaoism and lack of clergy there; pt welcomes prayer and presence for support
[2022-03-04 17:11] LABS: Bedside Glucose 119 mg/dL (74-106)
[2022-03-04] MEDS: Carvedilol 6.25 MG Tablet PO (20:54)
[2022-03-04] MEDS: APIXABAN 5 MG TABLET PO (20:54)
[2022-03-04 22:10] LABS: Bedside Glucose 159 mg/dL (74-106)
[2022-03-05 02:50] VITALS: O2SAT 87
[2022-03-05 03:00] VITALS: BP 106/68; PULSE 91; RESP 16; TEMP 36.6; O2SAT 96
[2022-03-05 03:12] VITALS: PULSE 99
[2022-03-05 06:26] LABS: Absolute Lymphocyte Count 1.45 X10^3/uL (0.83-4.51); Absolute Neutrophil Count 8.3 X10^3/uL (2.0-7.7); Basophil# 0.05 X10^3/uL; Basophil% 0.4 % (0-1); Eosinophil# 0.02 X10^3/uL; Eosinophils% 0.2 % (0-5); Hematocrit 34.8 % (37-47); Hemoglobin 10.7 g/dL (12.0-15.0); Lymphocyte # 1.45 X10^3/ul (0.83-4.51); Lymphocyte % 12.9 % (19-41); Mean Corp Hgb Conc 30.7 g/dL (32-36); Mean Corpuscular Hgb 26.3 pg (27.0-32.0); Mean Corpuscular Volume 85.5 fL (81-99); Mean Platelet Vol. 10.2 fl (6.2-12.0); Monocyte# 1.31 X10^3/uL; Monocyte% 11.6 % (0-10); NRBC Flagged by Analyzer 0 % (0-5); Neutrophil % 73.7 % (47-70); Platelet Count 299 K/mm3 (150-450); RBC Distribution Width CV 14.6 % (11.6-14.6); RBC Distribution Width SD 45.1 fl (35.1-43.9); Red Blood Count 4.07 M/mm3 (4.2-5.4); White Blood Count 11.3 K/mm3 (4.4-11.0)
[2022-03-05 06:35] LABS: Bedside Glucose 154 mg/dL (74-106)
[2022-03-05 06:58] LABS: Anion Gap 8 (5-15); BUN 32 mg/dL (7-18); BUN/Creat Ratio 22.4 RATIO (10-20); Calcium,Total 9.2 mg/dL (8.5-10.1); Chloride 105 mmol/L (98-107); Creatinine, Serum 1.43 mg/dL (0.55-1.02); EST Glomerular Filtration Rate 38 mL/min (>60); Est Glom Filt Rate - Afr Amer 46 mL/min (>60); Estimated Creatinine Clearance 45.22 ml/min; Glucose 147 mg/dL (74-106); Potassium 3.6 mmol/L (3.5-5.1); Sodium Level 137 mmol/L (136-145)
[2022-03-05 07:00] VITALS: PULSE 85
[2022-03-05 07:36] VITALS: O2SAT 97
[2022-03-05] MEDS: APIXABAN 5 MG TABLET PO (08:13)
[2022-03-05] MEDS: Ezetimibe 10 MG Tablet PO (08:13)
[2022-03-05] MEDS: Pantoprazole Sodium 40 MG Tablet PO (08:13)
[2022-03-05] MEDS: Carvedilol 6.25 MG Tablet PO (08:13)
[2022-03-05] MEDS: Losartan Potassium 100 MG Tablet PO (08:13)
[2022-03-05] MEDS: Aspirin 81 MG TAB.CHEW PO (08:14)
[2022-03-05 09:00] VITALS: BP 92/64; PULSE 90; RESP 14; TEMP 36.7; O2SAT 92
--- NOTE | 2022-03-05 09:50 | DS.PCM_ITS ---
Providers Date of Admission: 03/03/22 Primary Care Physician: Dr. Anayeli Sears MD Consultations 03/03/22 17:27 Consult: Cardiology Routine Consulting Provider: Bernardo Mireles Reason for Consult: afib with RVR EMERGENT Consult: No Notified: Yes Date Notified: 03/03/22 Time Notified: 17:28 Method of Notification: Verbal 03/04/22 01:42 Consult: Supervisor [employer] / Pulmonary Medicine Routine Consulting Provider: Pulmonary Medicine richie Carolina Reason for Consult: Hypotension EMERGENT Consult: No Notified: Yes Date Notified: 03/04/22 Time Notified: 01:42 Method of Notification: Text Reason For Visit: AFIB Diagnosis Discharge Diagnosis (1) Afib: Status: Deleted Code(s): I48.91 - Unspecified atrial fibrillation (2) Non-ischemic cardiomyopathy: Status: Acute Code(s): I42.8 - Other cardiomyopathies (3) CHF (congestive heart failure), NYHA class II: Status: Acute Code(s): I50.9 - Heart failure, unspecified Medications at Discharge Home Medications aspirin 81 mg tablet,delayed release 81 mg PO DAILY 03/03/22 ezetimibe 10 mg tablet 10 mg PO MOWEFR 03/03/22 metformin 500 mg tablet 1,000 mg PO DAILY DM 03/03/22 metformin 500 mg tablet 500 mg PO DAILY DM 03/03/22 pantoprazole 40 mg tablet,delayed release 40 mg PO DAILY 03/03/22 apixaban 5 mg tablet (Eliquis) 5 mg PO BID #60 tabs 03/05/22 carvedilol 6.25 mg tablet 6.25 mg PO BID #60 tabs 03/05/22 furosemide 20 mg tablet 20 mg PO DAILY #30 tabs 03/05/22 losartan 100 mg tablet 100 mg PO DAILY #30 tabs 03/05/22 Hospital Course Operations None Procedures 2-D Echocardiogram and Cardiac catheterization Summary of Care Provided Minutes Spent on Discharge: 47 Hospital Course: CED TODD, is a 76 F with a PMH as outlined who presents via the ED on 03/03/2022 with a complaint of palpitations. She went to see her PCP today, and said she was having palpitations. She denied any dizziness, lightheaded, nausea or vomiting. She has no history of afib. Her PCP got an ambulance to send her to the ED. REview of systems was otherwise negative. Vitals in the ED were BP of 107/77. RR of 103, RR of 24 and saturating of 94% on room air.? CBC showed hemoglobin of 11.9 with WBC of 8.4 and platelets of 331.? D-dimer was 1.2.? Chemistry showed creatinine of 1.23.? Initial troponin was 8 and trended up to 67.? CTA of the chest done was negative for any evidence of PE but showed findings suggestive of mild CHF.? EKG showed A. fib patient, which appears to be new onset A. fib.? She was admitted to be managed for new onset A. fib. She was given a Cardizem bolus in the ED and heart rate improved. She was initially admitted to the PCU and started on metoprolol and Lovenox. However patient became hypotensive after being started on Cardizem drip as she went into A. fib with RVR. Cardizem drip was discontinued and she was transferred to the ICU for closer monitoring. Blood pressure improved with administration of a bolus of normal saline. Cardiology was consulted. She had 2D echo which showed EF of 30% with moderate to severe global hypokinesis of the left ventricle and mild right global ventricular systolic dysfunction as well as pulmonary artery systolic pressure 58 mmHg. She had cardiac cath which showed clean coronary vessels which was thought to have Takotsubo cardiomyopathy. Her heart rate became better controlled and she was transitioned to carvedilol 6.25 mg twice daily. She remained stable and was discharged home on 03/05/2022. She is f ollow-up with her primary care doctor and follow-up with cardiology. Patient seen and examined prior to discharge. She had no active complaints and had an uneventful night. She wanted to be discharged home. Review of systems otherwise negative. Labs and vitals reviewed. Home medication reviewed and reconciled. Physical Exam Const alert, oriented x3 and no apparent distress General Appearance: cooperative and comfortable Orientation / Consciousness: awake HEENT normocephalic, head/scalp atraumatic, hearing grossly normal bilaterally and moist oral mucous membranes Eyes PERRL, EOMs intact bilaterally and conjunctivae normal Neck no lymphadenopathy and supple Resp normal respiratory effort Resp Narrative: diminished breath sounds bibasally, no wheezes or crackles. On room air. Cardio Cardio Narrative: afib, rate controlled. GI normal to inspection, nondistended, normoactive bowel sounds, soft to palpation, non-tender and non-distended Extremity normal to inspection, full ROM and no clubbing, cyanosis or edema Skin no rashes or lesions noted Neuro oriented x3, CN's II-XII intact bilaterally and moves all extremities Sensorium / Orientation: awake and alert Psych affect normal Weight / BMI Weight Weight: 182 lb 15.739 oz Body Mass Index (BMI) 36.4 ABG / Lab / Microbiology Data Result Diagrams: 03/05/22 05:39 03/05/22 05:39 Laboratory: Laboratory Results - last 24 hr 03/04/22 11:01: POC Glucose 192 H 03/04/22 12:45: Troponin I High Sens 160 H* 03/04/22 16:34: POC Glucose 119 H 03/04/22 20:51: POC Glucose 159 H 03/05/22 05:39: WBC 11.3 H, RBC 4.07 L, Hgb 10.7 L, Hct 34.8 L, MCV 85.5, MCH 26.3 L, MCHC 30.7 L, RDW Std Deviation 45.1 H, RDW Coeff of Shalini 14.6, Plt Count 299, MPV 10.2, Immature Gran % (Auto) 1.200 H, Neut % (Auto) 73.7 H, Lymph % (Auto) 12.9 L, [place] % (Auto) 11.6 H, Eos % (Auto) 0.2, Baso % (Auto) 0.4, Absolute Neuts (auto) 8.3 H, Absolute Lymphs (auto) 1.45, Nucleated RBC % 0 03/05/22 05:39: Sodium 137, Potassium 3.6, Chloride 105, Carbon Dioxide 24.0, Anion Gap 8, BUN 32 H, Creatinine 1.43 H, Estim Creat Clear Calc 45.22, Est GFR (MDRD) Af Amer 46 L, Est GFR (MDRD) Non-Af 38 L, BUN/Creatinine Ratio 22.4 H, Glucose 147 H, Calcium 9.2 03/05/22 06:29: POC Glucose 154 H D/C Instructions Discharge Diet: Low fat / Low cholesterol Discharge Activity: Return to Normal Activity Weight Bearing Status: Weight bearing as tolerated Call your doctor if you observe: Fever of 101 or Higher, Shortness of breath, Dizziness, Fainting spells, Swelling in the ankles, Chest pain and Increased palpitations (irregular heartbeat) Meaningful Use Info Meaningful Use Diagnoses (Choose all that apply): CHF CHF XU/ARB ordered at discharge?: Yes Documented LVEF (%): 30 Discharge Plan Admission Admit Date/Time: 03/03/22 14:10 Primary Reason for Your Visit: afib with RVR Attending Provider: Whit Chadwick Primary Care Provider: Anayeli Sears Consulting Providers: Bernardo Mireles ; Moses Lozoya ; Donavan Sky ; [place] [employer]PRENTICE Discharge Orders/Prescriptions Prescriptions: New carvedilol 6.25 mg Tablet 6.25 mg PO BID Qty: 60 2RF losartan 100 mg Tablet 100 mg PO DAILY Qty: 30 2RF Eliquis 5 mg Tablet 5 mg PO BID Qty: 60 2RF furosemide 20 mg tablet 20 mg PO DAILY Qty: 30 2RF Continued metformin 500 mg tablet 500 mg PO DAILY pantoprazole 40 mg tablet,delayed release (DR/EC) 40 mg PO DAILY ezetimibe 10 mg tablet 10 mg PO MOWEFR metformin 500 mg tablet 1,000 mg PO DAILY aspirin 81 mg Tablet,Delayed Release (Dr/Ec) 81 mg PO DAILY Discontinued valsartan-hydrochlorothiazide 320-12.5 mg tablet 1 tab PO DAILY Referrals / Follow Up: Anayeli Sears MD [Primary Care Provider] - Within 2 Weeks Bernardo Mireles MD [STAFF PHYSICIAN] - Within 2 Weeks Disposition Disposition (needs filled in before D/C Order can be placed): Home, Self Care Charges/Coding Visit Charges Inpatient E&M: 68524 Disch Hosp
--- NOTE | 2022-03-05 10:07 | CASEMGMT ---
Addendum entered by Nicole Alvarez 03/05/22 10:43: Call from [facility] retail pharmacy and they state pt's co-pay is $142 but 30 day free trial card applied. Pt updated, voices understanding. Pt voices no further questions/concerns/needs. Delvin DENISE CM Original Note: Pt to be sent home on Eliquis and med e-scribed to [facility] retail pharmacy. Call to pharmacy to check coverage/co-pay and they will call this CAMELIA GARCIA back once run. They will also apply Eliquis 30 day free trial card. Delvin DENISE CM
--- NOTE | 2022-03-05 10:45 | PHA.DC.MC ---
Pharmacy Service has performed discharge medication reconciliation and counseling for this patient. 1. APIXABAN 5MG PO BID 2. CARVEDILOL 6.25MG PO BID 3. FUROSEMIDE 20MG PO DAILY 4. LOSARTAN 100MG PO DAILY The patient's discharge medication list was reviewed for discrepancies and discrepancies were resolved. Home Medications aspirin 81 mg tablet,delayed release 81 mg PO DAILY 03/03/22 ezetimibe 10 mg tablet 10 mg PO MOWEFR 03/03/22 metformin 500 mg tablet 1,000 mg PO DAILY DM 03/03/22 metformin 500 mg tablet 500 mg PO DAILY DM 03/03/22 pantoprazole 40 mg tablet,delayed release 40 mg PO DAILY 03/03/22 apixaban 5 mg tablet (Eliquis) 5 mg PO BID #60 tabs 03/05/22 carvedilol 6.25 mg tablet 6.25 mg PO BID #60 tabs 03/05/22 furosemide 20 mg tablet 20 mg PO DAILY #30 tabs 03/05/22 losartan 100 mg tablet 100 mg PO DAILY #30 tabs 03/05/22 The patient was counseled on the following discharge medications and changes in medications for homegoing were reviewed. The Reason for Use, instructions for use, and potential side effects were reviewed for all new medications. The patient's questions regarding all of their medications were answered. The patient was able to verbally demonstrate an understanding of their discharge medications.
== END 2022-03-05 11:42 | disposition home or self-care (01) | DRG 287 ==
LOC: ED 14:04 → PCU 14:32 → ICU 18:55 → PCU 03-05 06:39
PROVIDERS: Internal Medicine Cardiovascular Disease; Admitting Provider Student in an Organized Health Care Education/Training Program; Emergency Provider Student in an Organized Health Care Education/Training Program; PCP Internal Medicine; Visit Provider Student in an Organized Health Care Education/Training Program
DX: I48.91 Unspecified atrial fibrillation (principal); I50.20 Unspecified systolic (congestive) heart failure; I51.81 Takotsubo syndrome; I11.0 Hypertensive heart disease with heart failure; E11.9 Type 2 diabetes mellitus without complications; I95.2 Hypotension due to drugs; E78.5 Hyperlipidemia, unspecified; R00.2 Palpitations; Z79.84 Long term (current) use of oral hypoglycemic drugs; Z79.82 Long term (current) use of aspirin; Z51.5 Encounter for palliative care; R77.8 Other specified abnormalities of plasma proteins; Z66 Do not resuscitate; E66.9 Obesity, unspecified; T46.1X5A Adverse effect of calcium-channel blockers, initial encounter
CPT/HCPCS: 36415; 71045; 71275; 80048; 82962; 83880; 84443; 84484; 85025; 85379; 93005; 93306; 93458; 99152; 99153; 99285; J7030; J7040; Q9967; A4216; C1769; C1894

== ENCOUNTER → 2022-03-26 | Outpatient (CLI) | payer MEDICARE, SELFPAY ==
[2022-03-26 12:24] LABS: Absolute Lymphocyte Count 1.12 X10^3/uL (0.83-4.51); Absolute Neutrophil Count 5.4 X10^3/uL (2.0-7.7); Basophil# 0.08 X10^3/uL; Basophil% 1.1 % (0-1); Eosinophil# 0.11 X10^3/uL; Eosinophils% 1.5 % (0-5); Hematocrit 34.5 % (37-47); Hemoglobin 10.8 g/dL (12.0-15.0); Lymphocyte # 1.12 X10^3/ul (0.83-4.51); Lymphocyte % 15.4 % (19-41); Mean Corp Hgb Conc 31.3 g/dL (32-36); Mean Corpuscular Hgb 27.2 pg (27.0-32.0); Mean Corpuscular Volume 86.9 fL (81-99); Mean Platelet Vol. 11.3 fl (6.2-12.0); Monocyte# 0.56 X10^3/uL; Monocyte% 7.7 % (0-10); NRBC Flagged by Analyzer 0 % (0-5); Neutrophil # 5.35 X10^3/uL (2.7-7.7); Neutrophil % 73.7 % (47-70); Platelet Count 218 K/mm3 (150-450); RBC Distribution Width CV 15.8 % (11.6-14.6); RBC Distribution Width SD 48.4 fl (35.1-43.9); Red Blood Count 3.97 M/mm3 (4.2-5.4); White Blood Count 7.3 K/mm3 (4.4-11.0)
[2022-03-26 12:51] LABS: Anion Gap 7 (5-15); BUN 23 mg/dL (7-18); BUN/Creat Ratio 20.5 RATIO (10-20); Calcium,Total 9.4 mg/dL (8.5-10.1); Chloride 106 mmol/L (98-107); Creatinine, Serum 1.12 mg/dL (0.55-1.02); EST Glomerular Filtration Rate 50 mL/min (>60); Est Glom Filt Rate - Afr Amer 61 mL/min (>60); Glucose 126 mg/dL (74-106); Potassium 3.6 mmol/L (3.5-5.1); Sodium Level 140 mmol/L (136-145)
== END | disposition home or self-care (01) ==
LOC: LAB 11:41
PROVIDERS: PCP Internal Medicine; Referring Provider Nurse Practitioner Gerontology; Visit Provider Nurse Practitioner Gerontology
DX: I48.91 Unspecified atrial fibrillation (principal); R53.83 Other fatigue
CPT/HCPCS: 36415; 80048; 85025

== ENCOUNTER → 2022-04-14 | Day surgery (SDC) | payer MEDICARE, SELFPAY ==
[2022-04-11 09:40] VITALS: BMI 35.7
--- NOTE | 2022-04-14 12:32 | PCM.OP.BLANK ---
Problems Associated Problem List Diagnoses (1) New onset atrial fibrillation: Operative Report Date of Procedure: 04/14/22 Gait see cardioversion. 76-year-old lady with a history of chronic persistent atrial fibrillation and left ventricular systolic dysfunction. The patient was seen by Dr. Sky of the critical care division. Informed consent was obtained. Anterior-posterior pads were applied. 6 mg of intravenous etomidate was then administered and then 200 J of synchronized biphasic energy were applied with prompt reversal to sinus rhythm. Premature atrial complexes were noted as well as short runs of paroxysmal atrial fibrillation. Would recommend IV amiodarone 150 mg x 1 Continue current medication with beta-raymon and Eliquis Titrate beta-raymon upwards as appropriate Conclusion: Successful DC cardioversion of atrial fibrillation to sinus rhythm.
--- NOTE | 2022-04-14 14:05 | PRO.PCM_ITS ---
Procedure Report Date of Procedure: 04/14/22 CONSCIOUS SEDATION REPORT DATE OF SERVICE: April 14, 2022 BRIEF HISTORY OF PRESENT ILLNESS: The patient is a 76-year-old female who presented to [facility] for an elective outpatient cardioversion due to underlying atrial fibrillation. The patient has never previously undergone a prior cardioversion. She denies any prior anesthetic complications. She is currently anticoagulated on Eliquis. Her last surface echocardiogram demonstrated an ejection fraction of approxima tely 30%. She denied a history of COPD, asthma or obstructive sleep apnea. PHYSICAL EXAMINATION: VITAL SIGNS: Reviewed and were acceptable. GENERAL: The patient is an obese female, in no apparent distress, speaking in full sentences. HEENT: Normocephalic, atraumatic. Mucous membranes are moist and pink. Good mouth opening noted. Trachea is midline. Good neck mobility. CHEST: S1, S2 irregularly irregular. No murmurs, rubs or gallops were noted. LUNGS: Clear to auscultation bilaterally without appreciable wheezes, rales or rhonchi. ABDOMEN: Soft, nontender, nondistended. Positive bowel sounds. EXTREMITIES: There is no clubbing, cyanosis or edema. ASA Class: II DESCRIPTION OF PROCEDURE: After confirmation of informed consent, the patient's anesthesia plan was reviewed in detail. Etomidate was chosen. Risks and benefits were reviewed and the patient agreed to proceed. At 1226, the patient was given 6 mg of etomidate. The patient achieved an appropriate level of sedation and was given a 200 joule synchronized cardioversion by Dr. Mireles at the bedside. This was successful in achieving normal sinus rhythm. The patient was monitored until 1238, at which time she reached her baseline mental status and function. The patient tolerated the procedure well. COMPLICATIONS: None ESTIMATED BLOOD LOSS: None RECOMMENDATIONS: Okay to recover in usual fashion. Procedures Pulmonary 9xxxx: [id number] Con Sedation
== END | disposition home or self-care (01) ==
PROVIDERS: PCP Internal Medicine; Visit Provider Internal Medicine Cardiovascular Disease
DX: I48.91 Unspecified atrial fibrillation (principal); Z79.01 Long term (current) use of anticoagulants
CPT/HCPCS: 92960; 93005; J7030

== ENCOUNTER → 2022-06-30 | Outpatient (CLI) | payer MEDICARE, SELFPAY ==
--- NOTE | 2022-06-30 09:48 | ECHOD_ITS ---
Reason For Study: CARDIOMYOPATHY Procedure This was a 2D Doppler, Color Flow transthoracic echocardiogram. Exam performed in department. Left Ventricle Normal LV size. The estimated ejection fraction is 50 %. No regional wall motion abnormalities noted. Right Ventricle Moderately dilated right ventricle. Mild global right ventricular systolic dysfunction. Atria The left atrium is mildly enlarged. Normal right atrium. Mitral Valve Bileaflet diffuse mitral valve thickening. Mild-Moderate (1-2+) eccentric mitral valve insufficiency. Tricuspid Valve Normal tricuspid valve. Moderately severe (3+) tricuspid valve insufficiency. Pulmonary artery systolic pressure is 80 mmHg. Aortic Valve Trisinus/trileaflet aortic valve. Pulmonic Valve Normal pulmonic valve. Mild (1+) pulmonic valve insufficiency. Great Vessels Normal aortic root. The pulmonary artery is normal size. The inferior vena cava is dilated. Pericardium/Pleural No pericardial effusion. MMode/2D Measurements & Calculations LVIDd: 4.9 cm IVSd: 0.93 cm Ao root diam: 3.0 cm LVIDs: 4.0 cm LVPWd: 1.1 cm RVDd: 3.3 cm FS: 17.5 % LAV(MOD-bp): 77.0 ml LA A4 area: 24.7 cm2 LA dimension(2D): 5.0 cm LAV(MOD-bp) Indexed: 44.2 ml/m2 LAV(MOD-sp2): 76.6 ml LAV(MOD-sp4): 76.5 ml RA A4 area: 19.2 cm2 Time Measurements MV dec time: 0.15 sec Doppler Measurements & Calculations MV E max josemanuel: 111.2 cm/sec Lat Peak E' Josemanuel: 5.0 cm/sec Med Peak E' Josemanuel: 4.8 cm/sec MV A max josemanuel: 53.2 cm/sec E/E' lat: 22.4 E/E' med: 23.1 MV E/A: 2.1 MV dec slope: 755.2 cm/sec2 Ao V2 max: 167.7 cm/sec LV V1 max: 85.3 cm/sec Ao max P.3 mmHg LV V1 max P.9 mmHg Ao V2 mean: 106.0 cm/sec LV V1 mean P.5 mmHg Ao mean P.3 mmHg LV V1 mean: 56.7 cm/sec Ao V2 VTI: 41.7 cm LV V1 VTI: 21.2 cm MR max josemanuel: 590.3 cm/sec PA V2 max: 79.4 cm/sec TR max josemanuel: 384.8 cm/sec MR max P.4 mmHg TR max P.4 mmHg MR mean josemanuel: 469.1 cm/sec MR mean P.2 mmHg MR VTI: 239.2 cm ECHO/Echo Complete Interpretation Summary Normal LV size. The estimated ejection fraction is 50 %. Moderately dilated right ventricle. The left atrium is mildly enlarged. Mild-Moderate (1-2+) eccentric mitral valve insufficiency. Pulmonary artery systolic pressure is 80 mmHg. Moderately severe (3+) tricuspid valve insufficiency. The inferior vena cava is dilated RV pressures elevated Ordering Physician: Sharron Contreras Referring Physician: Anayeli Sears Performed By: Vivien Lynn, MONICA, RVT
== END | disposition home or self-care (01) ==
LOC: CVS 09:48
PROVIDERS: PCP Internal Medicine; Referring Provider Nurse Practitioner Gerontology; Visit Provider Nurse Practitioner Gerontology
DX: I42.8 Other cardiomyopathies (principal)
CPT/HCPCS: 93306

== ENCOUNTER → 2022-10-27 | Outpatient (CLI) | payer MEDICARE, SELFPAY ==
[2022-10-27 16:36] LABS: Hematocrit 35.8 % (37-47); Hemoglobin 10.9 g/dL (12.0-15.0); Mean Corp Hgb Conc 30.4 g/dL (32-36); Mean Corpuscular Hgb 27.4 pg (27.0-32.0); Mean Corpuscular Volume 89.9 fL (81-99); Mean Platelet Vol. 10.2 fl (6.2-12.0); Platelet Count 257 K/mm3 (150-450); RBC Distribution Width CV 17.8 % (11.6-14.6); RBC Distribution Width SD 58.3 fl (35.1-43.9); Red Blood Count 3.98 M/mm3 (4.2-5.4); White Blood Count 6.3 K/mm3 (4.4-11.0)
[2022-10-27 17:27] LABS: Anion Gap 11 (5-15); BUN 21 mg/dL (7-18); BUN/Creat Ratio 13.6 RATIO (10-20); Calcium,Total 9.8 mg/dL (8.5-10.1); Chloride 107 mmol/L (98-107); Creatinine, Serum 1.54 mg/dL (0.55-1.02); EST Glomerular Filtration Rate 35 mL/min (>60); Est Glom Filt Rate - Afr Amer 42 mL/min (>60); Glucose 171 mg/dL (74-106); Sodium Level 145 mmol/L (136-145)
== END | disposition home or self-care (01) ==
LOC: LAB 15:12
PROVIDERS: PCP Internal Medicine; Referring Provider Physician Assistant Medical; Visit Provider Physician Assistant Medical
DX: I42.8 Other cardiomyopathies (principal); I50.9 Heart failure, unspecified; Z79.01 Long term (current) use of anticoagulants; E03.2 Hypothyroidism due to medicaments and other exogenous substances
CPT/HCPCS: 36415; 80048; 84443; 85027

== ENCOUNTER → 2022-12-31 | Outpatient (CLI) | payer MEDICARE, SELFPAY ==
[2022-12-31 11:58] LABS: AST(SGOT) 14 U/L (15-37); Alanine Aminotransfer ALT/SGPT 18 U/L (13-56); Albumin, Serum 3.7 g/dL (3.2-5.0); Alkaline Phosphatase 102 U/L (45-117); Anion Gap 4 (5-15); BUN 30 mg/dL (7-18); BUN/Creat Ratio 16.1 RATIO (10-20); Bilirubin, Direct 0.15 mg/dL (0.00-0.30); Calcium,Total 10.2 mg/dL (8.5-10.1); Chloride 105 mmol/L (98-107); Cholesterol 192 mg/dL (200); Creatinine, Serum 1.86 mg/dL (0.55-1.02); EST Glomerular Filtration Rate 28 mL/min (>60); Est Glom Filt Rate - Afr Amer 34 mL/min (>60); Globulin 4.3 g/dL (2.2-4.2); Glucose 190 mg/dL (74-106); High Density Lipoprotein 64 mg/dL; Magnesium 2.2 mg/dL (1.6-2.6); Potassium 4.3 mmol/L (3.5-5.1); Sodium Level 136 mmol/L (136-145); Triglycerides 112 mg/dL; Very Low Density Lipoprotein 22 mg/dL (5-40)
== END | disposition home or self-care (01) ==
LOC: LAB 10:35
PROVIDERS: PCP Nurse Practitioner; Referring Provider Physician Assistant Medical; Visit Provider Physician Assistant Medical
DX: I42.8 Other cardiomyopathies (principal); I50.20 Unspecified systolic (congestive) heart failure; I48.0 Paroxysmal atrial fibrillation; E87.6 Hypokalemia; E83.42 Hypomagnesemia; E78.5 Hyperlipidemia, unspecified
CPT/HCPCS: 36415; 80048; 80061; 80076; 83735

== ENCOUNTER → 2023-01-14 | Outpatient (CLI) | payer MEDICARE, SELFPAY ==
[2023-01-14 12:49] LABS: Absolute Lymphocyte Count 1.36 X10^3/uL (0.83-4.51); Absolute Neutrophil Count 5.3 X10^3/uL (2.0-7.7); Basophil# 0.13 X10^3/uL; Basophil% 1.6 % (0-1); Eosinophil# 0.32 X10^3/uL; Eosinophils% 4.1 % (0-5); Hematocrit 45.8 % (37-47); Hemoglobin 13.9 g/dL (12.0-15.0); Lymphocyte # 1.36 X10^3/ul (0.83-4.51); Lymphocyte % 17.3 % (19-41); Mean Corp Hgb Conc 30.3 g/dL (32-36); Mean Corpuscular Hgb 27.2 pg (27.0-32.0); Mean Corpuscular Volume 89.6 fL (81-99); Mean Platelet Vol. 9.3 fl (6.2-12.0); Monocyte# 0.72 X10^3/uL; Monocyte% 9.1 % (0-10); NRBC Flagged by Analyzer 0 % (0-5); Neutrophil # 5.29 X10^3/uL (2.7-7.7); Neutrophil % 67.1 % (47-70); Platelet Count 256 K/mm3 (150-450); RBC Distribution Width CV 13.4 % (11.6-14.6); Red Blood Count 5.11 M/mm3 (4.2-5.4); White Blood Count 7.9 K/mm3 (4.4-11.0)
[2023-01-14 13:39] LABS: Anion Gap 4 (5-15); BUN 35 mg/dL (7-18); BUN/Creat Ratio 19.2 RATIO (10-20); Calcium,Total 11.5 mg/dL (8.5-10.1); Chloride 107 mmol/L (98-107); Creatinine, Serum 1.82 mg/dL (0.55-1.02); EST Glomerular Filtration Rate 29 mL/min (>60); Est Glom Filt Rate - Afr Amer 35 mL/min (>60); Glucose 207 mg/dL (74-106); Potassium 4.7 mmol/L (3.5-5.1); Sodium Level 135 mmol/L (136-145); Thyroid Stim Hormone (TSH) 5.58 uIU/mL (0.358-3.74)
== END | disposition home or self-care (01) ==
LOC: LAB 12:04
PROVIDERS: PCP Nurse Practitioner; Referring Provider Physician Assistant Medical; Visit Provider Physician Assistant Medical
DX: I42.8 Other cardiomyopathies (principal); I10 Essential (primary) hypertension
CPT/HCPCS: 36415; 80048; 84443; 85025

== ENCOUNTER → 2023-02-11 | Outpatient (CLI) | payer MEDICARE, SELFPAY ==
[2023-02-11 12:13] LABS: Anion Gap 8 (5-15); BUN 31 mg/dL (7-18); BUN/Creat Ratio 20.4 RATIO (10-20); Calcium,Total 9.8 mg/dL (8.5-10.1); Chloride 109 mmol/L (98-107); Creatinine, Serum 1.52 mg/dL (0.55-1.02); EST Glomerular Filtration Rate 35 mL/min (>60); Est Glom Filt Rate - Afr Amer 43 mL/min (>60); Glucose 129 mg/dL (74-106); Potassium 5.2 mmol/L (3.5-5.1); Sodium Level 140 mmol/L (136-145)
== END | disposition home or self-care (01) ==
LOC: LAB 10:58
PROVIDERS: Nurse Practitioner Gerontology; PCP Nurse Practitioner; Referring Provider Physician Assistant Medical; Visit Provider Physician Assistant Medical
DX: I50.20 Unspecified systolic (congestive) heart failure (principal); I48.0 Paroxysmal atrial fibrillation
CPT/HCPCS: 36415; 80048

== ENCOUNTER → 2023-02-18 | Outpatient (CLI) | payer MEDICARE, SELFPAY ==
[2023-02-18 11:20] LABS: Anion Gap 4 (5-15); BUN 32 mg/dL (7-18); BUN/Creat Ratio 20.4 RATIO (10-20); Calcium,Total 10.1 mg/dL (8.5-10.1); Chloride 108 mmol/L (98-107); Creatinine, Serum 1.57 mg/dL (0.55-1.02); EST Glomerular Filtration Rate 34 mL/min (>60); Est Glom Filt Rate - Afr Amer 41 mL/min (>60); Glucose 126 mg/dL (74-106); Potassium 5.1 mmol/L (3.5-5.1); Sodium Level 138 mmol/L (136-145)
== END | disposition home or self-care (01) ==
LOC: LAB 09:50
PROVIDERS: PCP Nurse Practitioner; Referring Provider Nurse Practitioner Gerontology; Visit Provider Nurse Practitioner Gerontology
DX: E87.5 Hyperkalemia (principal)
CPT/HCPCS: 36415; 80048

== ENCOUNTER → 2023-07-01 | Outpatient (CLI) | payer MEDICARE, SELFPAY ==
--- NOTE | 2023-07-01 14:51 | ECHOD_ITS ---
Reason For Study: AFIB Procedure This was a 2D Doppler, Color Flow transthoracic echocardiogram. Exam performed in department. Left Ventricle Normal LV size. The estimated ejection fraction is 20 %. There is severe global hypokinesis of the left ventricle. Right Ventricle Moderately dilated right ventricle. Moderate global right ventricular systolic dysfunction. Atria The left atrium is moderately enlarged. The right atrium is mildly enlarged. Mitral Valve Normal mitral valve. Mild-Moderate (1-2+) eccentric mitral valve insufficiency. Tricuspid Valve Normal tricuspid valve. Moderately severe (3+) tricuspid valve insufficiency. Pulmonary artery systolic pressure is 82 mmHg. Severe pulmonary hypertension. Aortic Valve Normal aortic valve. Trisinus/trileaflet aortic valve. Pulmonic Valve Normal pulmonic valve. Great Vessels Normal aortic root. Moderate pulmonary artery dilation. Normal inferior vena cava. Pericardium/Pleural No pericardial effusion. MMode/2D Measurements & Calculations LVIDd: 4.4 cm IVSd: 1.4 cm Ao root diam: 3.5 cm LVIDs: 3.4 cm LVPWd: 1.2 cm FS: 22.6 % LAV(MOD-sp4): 109.4 ml LVAd ap4: 22.3 cm2 SV(MOD-sp4): 22.9 ml LVLd ap4: 5.9 cm EDV(MOD-sp4): 70.8 ml EDV(sp4-el): 71.5 ml LVAs ap4: 17.6 cm2 LVLs ap4: 5.5 cm ESV(MOD-sp4): 47.8 ml ESV(sp4-el): 48.2 ml EF(MOD-sp4): 32.4 % EF(sp4-el): 32.6 % SV(sp4-el): 23.3 ml LA A4 area: 29.3 cm2 LA dimension(2D): 4.2 cm RA A4 area: 24.3 cm2 TAPSE: 0.96 cm Time Measurements MV dec time: 0.15 sec Doppler Measurements & Calculations MV E max ari: 96.8 cm/sec MV V2 max: 107.6 cm/sec Ao V2 max: 94.0 cm/sec MV max P.6 mmHg Ao max P.5 mmHg MV V2 mean: 59.1 cm/sec Ao V2 mean: 77.2 cm/sec MV mean P.7 mmHg Ao mean P.5 mmHg MV V2 VTI: 18.3 cm Ao V2 VTI: 17.0 cm AV (velocity ratio): 1.0 LV V1 max: 95.9 cm/sec PA V2 max: 107.4 cm/sec TR max ari: 443.2 cm/sec LV V1 max P.7 mmHg PA V2 mean: 83.4 cm/sec TR max P.6 mmHg LV V1 mean P.2 mmHg LV V1 mean: 71.1 cm/sec LV V1 VTI: 17.2 cm ECHO/Echo Complete Interpretation Summary Normal LV size. The estimated ejection fraction is 20 %. There is severe global hypokinesis of the left ventricle. Moderately dilated right ventricle. Moderate global right ventricular systolic dysfunction. The left atrium is moderately enlarged. Pulmonary artery systolic pressure is 82 mmHg. Severe pulmonary hypertension. Compared to previous study, the left ventricular systolic function has worsened .. Ordering Physician: Isabella Hylton Referring Physician: Isabella Hylton Performed By: Mari Zuniga RCS
== END | disposition home or self-care (01) ==
LOC: CVS 14:50
PROVIDERS: PCP Nurse Practitioner; Referring Provider Physician Assistant Medical; Visit Provider Physician Assistant Medical
DX: I48.0 Paroxysmal atrial fibrillation (principal); I27.21 Secondary pulmonary arterial hypertension; I42.8 Other cardiomyopathies; I50.9 Heart failure, unspecified
CPT/HCPCS: 93306

== ENCOUNTER → 2023-07-08 | Outpatient (CLI) | payer MEDICARE, SELFPAY ==
[2023-07-08 12:38] LABS: Anion Gap 3 (5-15); BUN 20 mg/dL (7-18); BUN/Creat Ratio 14.8 RATIO (10-20); Calcium,Total 9.6 mg/dL (8.5-10.1); Chloride 109 mmol/L (98-107); Creatinine, Serum 1.35 mg/dL (0.55-1.02); EST Glomerular Filtration Rate 41 mL/min (>60); Est Glom Filt Rate - Afr Amer 49 mL/min (>60); Glucose 174 mg/dL (74-106); Potassium 4.4 mmol/L (3.5-5.1); Sodium Level 141 mmol/L (136-145)
== END | disposition home or self-care (01) ==
LOC: LAB 11:33
PROVIDERS: PCP Nurse Practitioner; Visit Provider Physician Assistant Medical
DX: I27.21 Secondary pulmonary arterial hypertension (principal); I42.8 Other cardiomyopathies; I50.9 Heart failure, unspecified
CPT/HCPCS: 36415; 80048

== ENCOUNTER → 2023-07-20 | Outpatient (CLI) | payer MEDICARE, SELFPAY | END | disposition home or self-care (01) | LOC: PSN 11:47 | PROVIDERS: PCP Nurse Practitioner; Referring Provider Physician Assistant Medical; Visit Provider Physician Assistant Medical | DX: I42.8 Other cardiomyopathies (principal); I48.0 Paroxysmal atrial fibrillation | CPT/HCPCS: 93225; 93226 ==

== ENCOUNTER → 2023-10-28 | Outpatient (CLI) | payer MEDICARE, SELFPAY ==
[2023-10-28 14:42] LABS: Anion Gap 4 (5-15); BUN 26 mg/dL (7-18); Calcium,Total 10.2 mg/dL (8.5-10.1); Chloride 112 mmol/L (98-107); Creatinine, Serum 1.37 mg/dL (0.55-1.02); EST Glomerular Filtration Rate 40 mL/min (>60); Est Glom Filt Rate - Afr Amer 48 mL/min (>60); Glucose 167 mg/dL (74-106); Potassium 4.8 mmol/L (3.5-5.1); Sodium Level 139 mmol/L (136-145)
--- OUTSIDE RECORDS SUMMARY | 2023-10-28 18:28 | XMS RPT_ITS | CCD ---
Author Name Unknown Address [address] [facility] [id number] [place] [address] Organization [facility] Care Team Providers Care Sales Warehouse Driver Name Role Phone Renu TORRES, Anayeli Primary Care Provider LE TORRES, SKYLAR Myers Attending Unavailable LE TORRES, SKYLAR Myers Attending Unavailable PHYSICIAN, NONE Primary Care Unavailable VAL TORRES, DR LANDERS Attending Unavailabl e Renu TORRES, Anayeli Primary Care Provider Renu TORRES, Anayeli Primary Care Provider OLDER, RADHA Attending Unavailable GANTA, ANAYELI Primary Care Unavailable OLDER, RADHA Referring Unavailable GANTA, ANAYELI Primary Care Unavailable OLDER, RADHA Referring Unavailable GANTA, ANYAELI Primary Care Unavailable OLDER, RADHA Attending Unavailable GANTA, ANAYELI Primary Care Unavailable OLDER, RADHA Referring Unavailable GANTA, ANAYELI Primary Care Unavailable OLDER, RADHA Attending Unavailable GANTA, ANAYELI Primary Care Unavailable OLDER, RADHA Attending Unavailable GANTA, ANAYELI Primary Care Unavailable OLDER, RADHA Referring Unavailable GANTA, ANAYELI Primary Care Unavailable OLDER, RADHA Attending Unavailable GANTA, ANAYELI Primary Care Unavailable OLDER, RADHA Referring Unavailable GANTA, ANAYELI Primary Care Unavailable OLDER, RADHA Referring Unavailable GANTA, ANAYELI Primary Care Unavailable GANTA, ANAYELI Primary Care Unavailable GANTA, ANAYELI Referring Unavailable GANTA, ANAYELI Primary Care Unavailable OLDER, RADHA Attending Unavailable OLDER, RADHA Referring Unavailable GANTA, ANAYELI Primary Care Unavailable OLDER, RADHA Referring Unavailable OLDER, RADHA Attending Unavailable GANTA, ANAYELI Primary Care Unavailable OLDER, RADHA Referring Unavailable GANTA, ANAEYLI Primary Care Unavailable OLDER, RADHA Referring Unavailable GANTA, ANAYELI Primary Care Unavailable GANTA, ANAYELI Referring Unavailable GANTA, ANAYELI Primary Care Unavailable Allergies Allergy Classification Reported Allergen(s) Allergy Type Date of Onset Reaction(s) Facility (20 sources) atorvastatin; Translations: [ATORVASTATIN CALCIUM] Drug Allergy 10-24-2005 [facility] (20 sources) Doxycycline; Translations: [DOXYCYCLINE] Drug Allergy 04-16-2015 Rash, Diarrhea, Vomiting [facility] Work Phone: (20 sources) glimepiride; Translations: [GLIMEPIRIDE] Drug Allergy 10-24-2005 [facility] (20 sources) Pravastatin; Translations: [PRAVASTATIN] Drug Allergy 01-07-2010 [facility] Work Phone: (20 sources) quinapril; Translations: [QUINAPRIL HCL] Drug Allergy 10-24-2005 [facility] (20 sources) Ramipril; Translations: [RAMIPRIL] Drug Allergy 10-24-2005 [facility] (20 sources) rosuvastatin; Translations: [ROSUVASTATIN CALCIUM] Drug Allergy 02-13-2009 [facility] Work Phone: (20 sources) Simvastatin; Translations: [SIMVASTATIN] Drug Allergy 10-24-2005 [facility] Medications Current Medications Medication Drug Class(es) Dates Sig (Normalized) Sig (Original) glyBURIDE 2.5 mg oral tablet (3 sources) Sulfonylurea Start: 02-02-2023 End: 03-13-2023 take 1 tablet by mouth once daily at breakfast glyBURIDE 2.5 mg tablet Indications: Type 2 diabetes mellitus with chronic kidney disease, with long-term current use of insulin, unspecified CKD stage (HCC) Take 1 tablet by mouth daily with breakfast. 30 tablet 11 02/02/2023 03/13/2023 Discontinued Completed/Discontinued Medications Medication Drug Class(es) Dates Sig (Normalized) Sig (Original) amiodarone hydrochloride 200 mg oral tablet (6 sources) Antiarrhythmic Start: 10-06-2022 End: 11-05-2022 take 1 tablet by mouth once daily amiodarone (PACERONE) 200 mg tablet Take 1 tablet by mouth once daily. 0 10/06/2022 11/05/2022 Discontinued (Discontinued by Patient) Problems Active Problems Problem Classification Problem Date Documented Da te Episodic/Chronic Anxiety disorders (1 source) Anxiety; Translations: [Anxiety disorder, unspecified] Chronic Cardiac dysrhythmias (5 sources) Atrial fibrillation; Translations: [Unspecified atrial fibrillation] Chronic Cardiac dysrhythmias (1 source) Tachycardia; Translations: [Tachycardia, unspecified] Episodic Cataract (20 sources) Nuclear senile cataract; Translations: [Age-related nuclear cataract, unspecified eye] Onset: 11-01-2013 09-16-2021 Chronic Chronic kidney disease (2 sources) Chronic kidney disease stage 3A ; Translations: [Chronic kidney disease, stage 3a (HCC)] Chronic Chronic kidney disease (2 sources) Chronic kidney disease; Translations: [Stage 3b chronic kidney disease (HCC)] Onset: 12-03-2022 Deficiency and other anemia (3 sources) Anemia; Translations: [Anemia, unspecified] Episodic Diabetes mellitus with complications (9 sources) Type 2 diabetes mellitus; Translations: [Type 2 diabetes mellitus with diabetic chronic kidney disease] Onset: 03-02-2023 Chronic Diabetes mellitus without complication (20 sources) Type 2 diabetes mellitus without complication; Translations: [Type 2 diabetes mellitus without complications] Onset: 07-22-2017 Chronic Disorders of lipid metabolism (20 sources) Pure hypercholesterolem ia; Translations: [Pure hypercholesterolem ia, unspecified] Onset: 10-24-2005 Chronic Essential hypertension (20 sources) Benign essential hypertension; Translations: [Essential (primary) hypertension] Onset: 10-24-2005 10-24-2005 Chronic Glaucoma (20 sources) Unspecified open-angle glaucoma, stage unspecified; Translations: [Open-angle glaucoma, unspecified] Onset: 11-01-2013 09-16-2021 Chronic Mycoses (1 source) Onychomycosis; Translations: [Tinea unguium] Episodic Nutritional deficiencies (1 source) Vitamin D deficiency; Translations: [Vitamin D deficiency, unspecified] Chronic Other diseases of kidney and ureters (3 sources) Abnormal renal function; Translations: [Disorder of kidney and ureter, unspecified] Episodic Other eye disorders (20 sources) Optic atrophy of left eye; Translations: [Unspecified optic atrophy] Onset: 11-01-2013 11-01-2013 Chronic Other gastrointestinal disorders (2 sources) Occult blood in stools; Translations: [Other fecal abnormalities] Episodic Other liver diseases (1 source) Elevated liver enzymes level; Translations: [Abnormal levels of other serum enzymes] Episodic Other nutritional; endocrine; and metabolic disorders (20 sources) Hypercalcemia; Translations: [Hypercalcemia] Onset: 04-09-2020 04-09-2020 Chronic Other nutritional; endocrine; and metabolic disorders (1 source) Hypercalcemia; Translations: [Hypercalcemia] Onset: 04-09-2020 Chronic Other screening for suspected conditions (not mental disorders or infectious disease) (5 sources) Patient encounter status; Translations: [Encounter for screening mammogram for malignant neoplasm of breast] Episodic Residual codes; unclassified (1 source) History of clinical finding in subject; Translations: [Personal history of other medical treatment] Episodic Residual codes; unclassified (1 source) Intolerant of cold; Translations: [Other general symptoms and signs] Episodic Thyroid disorders (7 sources) Hypothyroidism; Translations: [Hypothyroidism, unspecified] Onset: 02-02-2023 Chronic Past or Other Problems Problem Classification Problem Date Documented Da te Episodic/Chronic Deficiency and other anemia (1 source) Iron deficiency anemia, unspecified; Translations: [Iron deficiency anemia, unspecified iron deficiency anemia type] Onset: 09-24-2022 Episodic Deficiency and other anemia (1 source) Anemia, unspecified; Translations: [Anemia, unspecified type] Onset: 09-03-2022 Episodic Malaise and fatigue (3 sources) Fatigue; Translations: [Other fatigue] Onset: 09-03-2022 Episodic Other aftercare (1 source) oil heaterman (current) use of insulin; Translations: [Type 2 diabetes mellitus with chronic kidney disease, with long-term current use of insulin, unspecified CKD stage (HCC)] Onset: 03-02-2023 Episodic Other aftercare (1 source) Other keno terminal operator (current) drug therapy; Translations: [Medication management] Onset: 09-24-2022 Episodic Other diseases of kidney and ureters (1 source) Disorder of kidney and ureter, unspecified; Translations: [Function kidney decreased] Onset: 09-24-2022 Episodic Other eye disorders (20 sources) Abducens nerve palsy; Translations: [Sixth [abducent] nerve palsy, unspecified eye] Onset: 02-08-2013 09-16-2021 Episodic Other gastrointestinal disorders (1 source) Other fecal abnormalities; Translations: [Fecal occult blood test positive] Onset: 09-24-2022 Episodic Other liver diseases (1 source) Abnormal levels of other serum enzymes; Translations: [Elevated liver enzymes] Onset: 08-20-2022 Episodic Residual codes; unclassified (20 sources) Edema; Translations: [Edema, unspecified] Onset: 07-28-2006 07-28-2006 Episodic Residual codes; unclassified (1 source) Other general symptoms and signs; Translations: [Intolerance to cold] Onset: 09-03-2022 Episodic Retinal detachments; defects; vascular occlusion; and retinopathy (20 sources) 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 without detachment; Translations: [Horseshoe tear of retina without detachment, right eye] Onset: 11-01-2013 09-16-2021 Episodic Results Test Name Value Interpretation Reference Range Facil it Vital Signs Date Time Vital Sign Value Performing Clinician Stella hamlin 06-03-2023 18:26-0400 Diastolic blood pressure 82 mm[Hg] Radha Older SENIOR INVESTMENT MANAGER.SOCK LINING EXAMINER Work Phone: [facility] 06-03-2023 18:26-0400 Systolic blood pressure 136 mm[Hg] Radha Older SENIOR INVESTMENT MANAGER.SOCK LINING EXAMINER Work Phone: [facility] 06-03-2023 11:34-0400 Body weight 80.74 kg Radha Older SENIOR INVESTMENT MANAGER.SOCK LINING EXAMINER Work Phone: [facility] 06-03-2023 11:34-0400 Heart rate 84 /min Radha Older SENIOR INVESTMENT MANAGER.SOCK LINING EXAMINER Work Phone: [facility] 06-03-2023 11:34-0400 Respiratory rate 16 /min Radha Older SENIOR INVESTMENT MANAGER.SOCK LINING EXAMINER Work Phone: [facility] 02-02-2023 09:53-0400 Body weight 73.48 kg Radha Older SENIOR INVESTMENT MANAGER.SOCK LINING EXAMINER Work Phone: [facility] 02-02-2023 09:53-0400 Diastolic blood pressure 70 mm[Hg] Radha Older SENIOR INVESTMENT MANAGER.SOCK LINING EXAMINER Work Phone: [facility] 02-02-2023 09:53-0400 Heart rate 52 /min Radha Older SENIOR INVESTMENT MANAGER.SOCK LINING EXAMINER Work Phone: [facility] 02-02-2023 09:53-0400 Respiratory rate 16 /min Radha Older SENIOR INVESTMENT MANAGER.SOCK LINING EXAMINER Work Phone: [facility] 02-02-2023 09:53-0400 Systolic blood pressure 162 mm[Hg] Radha Older SENIOR INVESTMENT MANAGER.SOCK LINING EXAMINER Work Phone: [facility] 11-05-2022 15:13-0500 Body weight 81.65 kg Radha Older SENIOR INVESTMENT MANAGER.SOCK LINING EXAMINER Work Phone: [facility] 11-05-2022 15:13-0500 Diastolic blood pressure 84 mm[Hg] Radha Older SENIOR INVESTMENT MANAGER.SOCK LINING EXAMINER Work Phone: [facility] 11-05-2022 15:13-0500 Heart rate 60 /min Radha Older SENIOR INVESTMENT MANAGER.SOCK LINING EXAMINER Work Phone: [facility] 11-05-2022 15:13-0500 Respiratory rate 16 /min Radha Older SENIOR INVESTMENT MANAGER.SOCK LINING EXAMINER Work Phone: [facility] 11-05-2022 15:13-0500 Systolic blood pressure 168 mm[Hg] Radha Older SENIOR INVESTMENT MANAGER.SOCK LINING EXAMINER Work Phone: [facility] 10-06-2022 14:45-0500 Diastolic blood pressure 74 mm[Hg] Radha Older SENIOR INVESTMENT MANAGER.SOCK LINING EXAMINER Work Phone: [facility] 10-06-2022 14:45-0500 Systolic blood pressure 145 mm[Hg] Radha Older SENIOR INVESTMENT MANAGER.SOCK LINING EXAMINER Work Phone: [facility] 08-25-2022 11:42-0500 Diastolic blood pressure 72 mm[Hg] Radha Older SENIOR INVESTMENT MANAGER.SOCK LINING EXAMINER Work Phone: [facility] 08-25-2022 11:42-0500 Systolic blood pressure 161 mm[Hg] Radha Older SENIOR INVESTMENT MANAGER.SOCK LINING EXAMINER Work Phone: [facility] 08-25-2022 10:52-0500 Body weight 76.2 kg Radha Older SENIOR INVESTMENT MANAGER.SOCK LINING EXAMINER Work Phone: [facility] 08-25-2022 10:52-0500 Heart rate 68 /min Radha Older SENIOR INVESTMENT MANAGER.SOCK LINING EXAMINER Work Phone: [facility] 08-25-2022 10:52-0500 Respiratory rate 16 /min Radha Older SENIOR INVESTMENT MANAGER.SOCK LINING EXAMINER Work Phone: [facility] 04-02-2022 16:14-0400 Diastolic blood pressure 88 mm[Hg] Radha Older SENIOR INVESTMENT MANAGER.SOCK LINING EXAMINER Work Phone: [facility] 04-02-2022 16:14-0400 Heart rate 92 /min Radha Older SENIOR INVESTMENT MANAGER.SOCK LINING EXAMINER Work Phone: [facility] 04-02-2022 16:14-0400 Systolic blood pressure 134 mm[Hg] Radha Older SENIOR INVESTMENT MANAGER.SOCK LINING EXAMINER Work Phone: [facility] 04-02-2022 15:52-0400 Body weight 79.38 kg Radha Older SENIOR INVESTMENT MANAGER.SOCK LINING EXAMINER Work Phone: [facility] 04-02-2022 15:52-0400 Respiratory rate 16 /min Radha Older SENIOR INVESTMENT MANAGER.SOCK LINING EXAMINER Work Phone: [facility] 03-03-2022 09:04-0400 Body height 149.9 cm Anayeli Panda MD Work Phone: [facility] 03-03-2022 09:04-0400 Body temperature 97.3 [degF] Anayeli Panda MD Work Phone: [facility] 03-03-2022 09:04-0400 Body weight 77.11 kg Anayeli Panda MD Work Phone: [facility] 03-03-2022 09:04-0400 Diastolic blood pressure 90 mm[Hg] Anayeli Panda MD Work Phone: [facility] 03-03-2022 09:04-0400 Heart rate 140 /min Anayeli Panda MD Work Phone: [facility] 03-03-2022 09:04-0400 Respiratory rate 12 /min Anayeli Panda MD Work Phone: [facility] 03-03-2022 09:04-0400 SaO2% (BldA) [Mass fraction] 98 % Anayeli Panda MD Work Phone: [facility] 03-03-2022 09:04-0400 Systolic blood pressure 140 mm[Hg] Anayeli Panda MD Work Phone: [facility] Encounters Encounter Date Encounter Type Care Provider Facility Start: 06-03-2023 End: 06-03-2023 ambulatory RADHA REYES Facility:[facility] Start: 06-03-2023 End: 06-03-2023 Patient encounter procedure Radha Reyes SENIOR INVESTMENT MANAGER.SOCK LINING EXAMINER Work Phone: [facility] Procedures Date Procedure Procedure Detail Performing Clinician Start: 09-24-2022 Us retroperitoneal r eal time w/image complete Radha Reyes SENIOR INVESTMENT MANAGER.SOCK LINING EXAMINER Work Phone: Start: 03-03-2022 Adult depression scr eening assessment Anayeli Panda MD Work Phone: Start: 11-27-2020 Adult depression scr eening assessment Anayeli Panda MD Work Phone: Start: 03-02-2019 Mammography Anayeli mcmillan MD Work Phone: Start: 09-08-2011 Colonoscopy Anayeli mcmillan MD Work Phone: Plan of Treatment Date Care Activity Detail Author Start: 06-03-2024 Annual PCP Team Tobacco Blender fiorella Disease Visit Annual PCP Team Chronic Disease Visit [facility] Start: 05-27-2024 Hemoglobin/Hematocrit Hemoglobin/Hem atocrit [facility] Start: 05-27-2024 Hepatitis B surface antibody level LDL Cholesterol [facility] Start: 05-27-2024 Serum Creatinine Serum Creatinine [facility] Start: 03-02-2024 ANNUAL PCP TEAM JACKHAMMER OPERATOR FIORELLA DISEASE VISIT ANNUAL PCP TEAM CHRONIC DISEASE VISIT [facility] Start: 02-26-2024 SERUM CREATININE SERUM CREATININE [facility] Start: 02-03-2024 3 comp foot exam completed DIABETIC FOOT EXAM [facility] Start: 02-03-2024 ANNUAL PCP TEAM JACKHAMMER OPERATOR FIORELLA DISEASE VISIT ANNUAL PCP TEAM CHRONIC DISEASE VISIT [facility] Start: 02-03-2024 [facility]: 02-03-[facility]24 SERUM CREATININE SERUM CREATININE [facility] Start: 01-29-2024 Hepatitis B screening URINE AL BUMIN:CREATININE RATIO [facility] Start: 12-02-2023 Hepatitis C antibody , confirmatory test DILATED RETINAL EXAM [facility] Start: 11-25-2023 Hemoglobin A1c/Hemoglobin.total in Blood HbA1C [facility] Start: 11-05-2023 ANNUAL PCP TEAM JACKHAMMER OPERATOR FIORELLA DISEASE VISIT ANNUAL PCP TEAM CHRONIC DISEASE VISIT [facility] Start: 11-05-2023 COLORECTAL CANCER SCREENING COLORECTAL CANCER SCREENING [facility] Immunizations Immunization Date Immunization Notes Care Provider Yayo munoz 12-25-2020 COVID-19 vaccine, ag e 12+ yr (PFIZER-BIONTECH - PURPLE TOP) Anayeli Panda MD Work Phone: [facility] Work Phone: 12-03-2020 COVID-19 vaccine, ag e 12+ yr (PFIZER-BIONTECH - PURPLE TOP) Anayeli Panda MD Work Phone: [facility] Work Phone: 02-15-2020 zoster vaccine recombinant Anayeli Panda MD Work Phone: [facility] 12-17-2019 zoster vaccine recombinant Anayeli Panda MD Work Phone: [facility] 07-26-2018 pneumococcal polysaccharide vaccine, 23 valent Anayeli Panda MD Work Phone: [facility] Work Phone: 07-26-2018 influenza virus vacc ine, unspecified formulation Radha Reyes APRN.CNP Work Phone: [facility] 12-18-2014 pneumococcal conjuga te vaccine, 13 valent Anayeli Panda MD Work Phone: [facility] 01-27-2006 pneumococcal polysaccharide vaccine, 23 valent Anayeli Panda MD Work Phone: [facility] Payers Date Payer Category Payer Medicare MMO MEDICARE MMO MEDADVANTAGE O [id number] 2017-Present [phone] [address] [place] [address] [facility] [id number] 2017 Medicare MMO MEDICARE MMO MEDADVANTAGE O [id number] 2017-Present [phone] [address] [place] [address] O [id number] 2017 Unknown [id number] 1945 Unknown [id number] 1945 Unknown [id number] 1945 Unknown [id number] Social History Date Type Detail Facility Start: 09-08-2011 Tobacco smoking status NHIS Never smoked tobacco [facility] Start: 09-18-2021 End: 09-08-2022 Alcohol intake Current drinker of alcohol (finding) [facility] Start: 04-03-2020 End: 08-24-2022 History SDOH Alcohol Frequency 3 [facility] Start: 04-03-2020 End: 08-24-2022 History SDOH Alcohol Std Drinks 1 [facility] Start: 04-03-2020 End: 08-24-2022 History SDOH Social Connections Phone 5 [facility] Start: 04-03-2020 End: 08-24-2022 History SDOH Social Connections Membership 2 [facility] Start: 04-03-2020 End: 08-24-2022 History SDOH Physical Activity DPW 4 [facility] Start: 04-03-2020 Education 15 [facility] Start: 1945 Sex Assigned At Female [facility] Start: 02-21-2022 End: 08-25-2022 Exposure to SARS-CoV-2 (event) Not sure [facility] Work Phone: Start: 09-08-2011 Tobacco use and exposure Smokeless tobacco non-user [facility] Start: 03-03-2022 End: 08-24-2022 History of Social function [facility] Start: 03-03-2022 End: 08-24-2022 Social connection and isolation panel [facility] Do you belong to any clubs or organizations such as congregational groups, unions, fraternal or athletic groups, or school groups? No [facility] Are you now , , , , never or living with a partner? [facility] How often to you hav e a drink containing alcohol? Monthly or less [facility] How many standard dr inks containing alcohol do you have on a typical day? 1 or 2 [facility] How often do you hav e 6 or more drinks on 1 occasion? Never [facility] Adult Depression Screening Assessment 0 [facility] Work Phone: Do you feel stress - tense, restless, nervous, or anxious, or unable to sleep at night because your mind is troubled all the time - these days [OSQ] To some extent [facility] (I/We) worried wheth er (my/our) food would run out before (I/we) got money to buy more. Never true [facility] Start: 02-18-2019 Gender identity Identifies as female gender (finding) [facility] Start: 02-18-2019 Sexual orientation Heterosexual (finding) [facility] Medical Equipment Procedure Code Equipment Code Equipment Origin al Text Equipment Identifier Dates Start: 04-09-2020 End: 02-02-2023 Clinical Notes 12-10-2017 to 06-03-2023 Patient InstructionsRadha Reyes APRN.LENNY - 06/03/2023 11:46 AM EDTTelephone Encounter - Rebekah Terrell RN - 05/01/2023 3:59 PM EDTAddendum Note - Mechelle Reyes APRN.CNP - 04/01/2023 2:18 PM EDT Note Date & Type Note Facility 06-03-2023 Note HNO ID: [id number] Author: Radah Reyes APRN.SOCK LINING EXAMINER Service: ? Author Type: Nurse Practitioner Type: Progress Notes Filed: 06/03/2023 6:33 PM Note Text: CC: Patient presents with: Recheck: 3 month follow up HPI Alva Todd is a 77 year old female who presents today for routine follow up. HTN, HLD, and A-fib: Ms. Todd indicates that she is feeling well and denies any symptoms referable to elevated blood pressure. Specifically denies headache, chest pain, palpitations, dyspnea, and peripheral edema. Patient denies any side effects of her medication(s) and is compliant with their regimen. She does check BP's away from this office with average BP's in the 110s-120s/70s range. Alva works out regularly 7 times per week with pool exercises. She watches her diet for sodium, low fat and low cholesterol most of the time. Last 3 Encounter BP Readings: Date: BP: 06/03/2023 160/108 Gopi BP 136/82 03/02/2023 132/82 02/02/2023 162/70 Noticed her smart watch telling her she was A-fib. HR was in the 70s during these episodes and had no symptoms of palpitations, shortness of breath, chest pressure, dizziness, or any other accompanying symptoms. kept wanting her to go to ER so she stopped wearing her watch. Sees [facility] for routine follow up next month. Hypothyroidism: Finally has energy, hair is no longer falling out, and denies any abnormal weight changes. States she feels the best she has felt in a year. DIABETES MELLITUS: Ms. Todd denies excessive thirst or increased frequency of urination, chest pain or dyspnea , numbness, tingling or pain in extremities, new or unusual visual symptoms, low sugar/hypoglycemic reactions, weight loss/gain, lightheadedness/dizziness, and bowel changes/loose stools. Follows a diabetic diet most of the time. She is compliant with medication(s) and is tolerating med(s) without any side effects. She reports checking her glucose on a once a day schedule with sugars in the fasting 120s-130s range. Patient's last HgA1C was Hemoglobin A1C (%) Date Value 05/27/2023 6.5 01/28/2023 9.2 09/11/2021 6.6 03/04/2021 6.7 ) REVIEW OF SYSTEMS General: no fevers, no chills, no night sweats, no recurrent infections, no change in appetite, no change in energy, and no significant changes in weight Respiratory: no cough, no wheezing, no shortness of breath, no hemoptysis Cardiovascular: no chest pain, no chest pressure, no palpitations, and no swelling GI: No nausea, vomiting, or diarrhea Endocrine: no fatigue, no neck pain/pressure, no polyuria, no polyphagia, and no polydipsia Neurologic: No headache, weakness, numbness, tingling, dizziness, syncope. PAST MEDICAL HISTORY Diagnosis Date Abscess of chest (HCC) Essential hypertension, benign Pure hypercholesterolemia Type II or unspecified type diabetes mellitus without mention of complication, not stated as uncontrolled PAST SURGICAL HISTORY Procedure Laterality Date EYE SURGERY HX ALLERGIES Accupril [Quinapril Hcl], Altace [Ramipril], Amaryl [Glimepiride], Crestor [Rosuvastatin Calcium], Doxycycline, Lipitor [Atorvastatin Calcium], Pravachol [Pravastatin], and Zocor [Simvastatin] MEDICATIONS ezetimibe (ZETIA) 10 mg tablet Take 1 tablet by mouth once daily. Take 3 times per week levothyroxine (LEVOXYL) 50 mcg tablet Take 1 tablet daily. Except take 2 tablets Thursday and Thursday. Take on empty stomach. For Thyroid glipiZIDE (GLUCOTROL XL) 2.5 mg 24 hr tablet Take 1 tablet by mouth once daily. Ferrous Gluconate 225 mg (27 mg iron) tab Take 1 tablet by mouth once daily. pantoprazole DR (PROTONIX) 40 mg tablet Take 1 tablet by mouth daily before breakfast. Take on empty stomach, 1/2 hr before meal. ELIQUIS 5 mg tab(s) Take 6.25 mg by mouth twice daily. losartan (COZAAR) 100 mg tablet Take 100 mg by mouth once daily. carvedilol (COREG) 6.25 mg tablet Take 2 tablets by mouth twice daily with meals. blood sugar diagnostic (FREESTYLE LITE STRIPS) test strip TEST BLOOD SUGAR ONCE DAILY Blood-Glucose Meter monitoring kit Glucose Meter of Choice - Kit - Dx: Type 2 DM - Controlled E11.9 Checks blood sugar twice daily No family history on file. Social History Tobacco Use Smoking status: Never Smokeless tobacco: Never Substance Use Topics Alcohol use: Yes Comment: occasional Drug use: No PHYSICAL EXAM BP 136/82 Pulse 84 Resp 16 Wt 80.7 kg (178 lb) BMI 35.95 kg/m? General Appearance: well appearing, in no acute distress, alert Pysch: mood and affect broad and appropriate Skin: Skin color, texture, turgor normal for age; Eyes: conjunctiva pink and moist, no icterus, sclera white, non-injected Neck: Thyroid normal size and symmetric without palpable nodules, Neck supple, No adenopathy Lymph nodes: No cervical lymphadenopathy and No supraclavicular lymphadenopathy Lungs: Lungs clear to auscultation. No wheezing, rhonchi, rales. Heart (more content not included)... [facility] 06-03-2023 Instructions Radha Reyes APRN.CNP - 06/03/2023 12:08 PM EDT People can live normal lives with atrial fibrillation. Often people go back and forth from a-fib to a normal rhythm. We keep you on medications to prevent blood clots and control your heart rate. You should seek immediate attention if your heart rate is consistently above 120 and/or you have any other symptoms like chest pain, shortness of breath, dizziness, weakness, palpitations, or other concerns. documented in this encounter [facility] 06-03-2023 History of Present illness Narrative CC: Patient presents with: Recheck: 3 month follow up HPI Alva Todd is a 77 year old female who presents today for routine follow up. HTN, HLD, and A-fib: Ms. Todd indicates that she is feeling well and denies any symptoms referable to elevated blood pressure. Specifically denies headache, chest pain, palpitations, dyspnea, and peripheral edema. Patient denies any side effects of her medication(s) and is compliant with their regimen. She does check BP's away from this office with average BP's in the 110s-120s/70s range. Alva works out regularly 7 times per week with pool exercises. She watches her diet for sodium, low fat and low cholesterol most of the time. Last 3 Encounter BP Readings: Date: BP: 06/03/2023 160/108 Gopi BP 136/82 03/02/2023 132/82 02/02/2023 162/70 Noticed her smart watch telling her she was A-fib. HR was in the 70s during these episodes and had no symptoms of palpitations, shortness of breath, chest pressure, dizziness, or any other accompanying symptoms. kept wanting her to go to ER so she stopped wearing her watch. Sees [facility] for routine follow up next month. Hypothyroidism: Finally has energy, hair is no longer falling out, and denies any abnormal weight changes. States she feels the best she has felt in a year. DIABETES MELLITUS: Ms. Todd denies excessive thirst or increased frequency of urination, chest pain or dyspnea , numbness, tingling or pain in extremities, new or unusual visual symptoms, low sugar/hypoglycemic reactions, weight loss/gain, lightheadedness/dizziness, and bowel changes/loose stools. Follows a diabetic diet most of the time. She is compliant with medication(s) and is tolerating med(s) without any side effects. She reports checking her glucose on a once a day schedule with sugars in the fasting 120s-130s range. Patient's last HgA1C was Hemoglobin A1C (%) Date Value 05/27/2023 6.5 01/28/2023 9.2 09/11/2021 6.6 03/04/2021 6.7 ) REVIEW OF SYSTEMS General: no fevers, no chills, no night sweats, no recurrent infections, no change in appetite, no change in energy, and no significant changes in weight Respiratory: no cough, no wheezing, no shortness of breath, no hemoptysis Cardiovascular: no chest pain, no chest pressure, no palpitations, and no swelling GI: No nausea, vomiting, or diarrhea Endocrine: no fatigue, no neck pain/pressure, no polyuria, no polyphagia, and no polydipsia Neurologic: No headache, weakness, numbness, tingling, dizziness, syncope. PAST MEDICAL HISTORY Diagnosis Date Abscess of chest (HCC) Essential hypertension, benign Pure hypercholesterolemia Type II or unspecified type diabetes mellitus without mention of complication, not stated as uncontrolled PAST SURGICAL HISTORY Procedure Laterality Date EYE SURGERY HX ALLERGIES Accupril [Quinapril Hcl], Altace [Ramipril], Amaryl [Glimepiride], Crestor [Rosuvastatin Calcium], Doxycycline, Lipitor [Atorvastatin Calcium], Pravachol [Pravastatin], and Zocor [Simvastatin] MEDICATIONS ezetimibe (ZETIA) 10 mg tablet Take 1 tablet by mouth once daily. Take 3 times per week levothyroxine (LEVOXYL) 50 mcg tablet Take 1 tablet daily. Except take 2 tablets Thursday and Thursday. Take on empty stomach. For Thyroid glipiZIDE (GLUCOTROL XL) 2.5 mg 24 hr tablet Take 1 tablet by mouth once daily. Ferrous Gluconate 225 mg (27 mg iron) tab Take 1 tablet by mouth once daily. pantoprazole DR (PROTONIX) 40 mg tablet Take 1 tablet by mouth daily before breakfast. Take on empty stomach, 1/2 hr before meal. ELIQUIS 5 mg tab(s) Take 6.25 mg by mouth twice daily. losartan (COZAAR) 100 mg tablet Take 100 mg by mouth once daily. carvedilol (COREG) 6.25 mg tablet Take 2 tablets by mouth twice daily with meals. blood sugar diagnostic (FREESTYLE LITE STRIPS) test strip TEST BLOOD SUGAR ONCE DAILY Blood-Glucose Meter monitoring kit Glucose Meter of Choice - Kit - Dx: Type 2 DM - Controlled E11.9 Checks blood sugar twice daily No family history on file. Social History Tobacco Use Smoking status: Never Smokeless tobacco: Never Substance Use Topics Alcohol use: Yes Comment: occasional Drug use: No PHYSICAL EXAM BP 136/82 Pulse 84 Resp 16 Wt 80.7 kg (178 lb) BMI 35.95 kg/m General Appearance: well appearing, in no acute distress, alert Pysch: mood and affect broad and appropriate Skin: Skin color, texture, turgor normal for age; Eyes: conjunctiva pink and moist, no icterus, sclera white, non-injected Neck: Thyroid normal size and symmetric without palpable nodules, Neck supple, No adenopathy Lymph nodes: No cervical lymphadenopathy and No supraclavicular lymphadenopathy Lungs: Lungs clear to auscultation. No wheezing, rhonchi, rales. Heart: apical irregular without murmur, gallop, or rubs. No ectopy Health maintenance reviewed with patient: BP Controlled (<130/80) Never done DTaP,Tdap,Td Vaccine(1 - Tdap) Never done Covid-19 Vaccine(3 - Pfizer series) due on 02/19/2021 Influenza Vaccine(1) due on 05/22/2023 Colorectal Cancer Screening due on 11/05/2023 HbA1C due on 11/25/2023 Dilated Retinal Exam due on 12/02/2023 Urine Albumin:Creatinine Ratio due on 01/29/2024 Diabetic Foot Exam due on 02/03/2024 LDL Cholesterol due on 05/27/2024 Serum Creatinine due on 05/27/2024 Hemoglobin/Hematocrit due on 05/27/2024 Annual PCP Team Chronic Disease Visit due on 06/03/2024 Bone Density Screening Completed Advance Directive Discussion Completed Depression Assessment Completed Hepatitis C Screening Completed Shingrix Vaccine Completed Pneumococcal Vaccine: 65+ Completed Mammogram Screening Discontinued DATA REVIEWED: Most recent labs ASSESSMENT/PLAN: 1. Essential hypertension, benign - ICD9: 401.1, ICD10: I10 (primary diagnosis) - Home blood pressure readings controlled - Continue current medications - Recommend home blood pressure monitoring, to bring results to next visit - Encouraged sodium restriction, DASH or Mediterranean diet - Recommend regular aerobic exercise - follow up in 6 months 2. Atrial fibrillation, unspecified type (HCC) - ICD9: 427.31, ICD10: I48.91 - rate controlled with carvedilol, On eliquis for Dvt prophylaxis, and asymptomatic - education provided to patient to share with on living with a-fib and when to seek emergent care - continue with recommendations by cardiology. 3. Hypothyroidism, unspecified type - ICD9: 244.9, ICD10: E03.9 - Instructed patient on importance of taking on an empty stomach either first thing in the morning or at bedtime. -TSH in normal range and much improvement with symptoms. 4. Controlled type 2 diabetes mellitus without complication, without long-term current use of insulin (HCC) - ICD9: 250.00, ICD10: E11.9 - Controlled - Continue current medications - Blood glucose monitoring on a once daily schedule - Counseled on healthy diet and regular exercise - Discussed need for and benefit of weight loss. BMI 35.95 kg/(m^2) 5. Pure hypercholesterolemia - ICD9: 272.0, ICD10: E78.00 - controlled at this time - Recommend regular aerobic exercise - low fat diet - EZETIMIBE 10 MG TABLET Prescription instructions reviewed with patient as applicable. Potential red flag symptoms discussed with the patient. Reviewed appropriate action plan to take if red flag symptoms occur. Patient agreeable to treatment plan. Radha Reyes APRN.CNP documented in this encounter [facility] 05-01-2023 Miscellaneous Notes Last Office Visit: 03/02/2023 Future Office Visit: 06/03/2023 Requested Prescriptions Pending Prescriptions Disp Refills glipiZIDE XL (GLUCOTROL XL) 2.5 mg 24 hr tablet 90 tablet 1 Sig: Take 1 tablet by mouth once daily. Date of Last Labs: 01/28/2023 documented in this encounter [facility] 04-01-2023 Miscellaneous Notes Addended by: MECHELLE REYES on: 04/01/2023 02:18 PM Modules accepted: Orders Patient has been identified by name and date of : No Patient phones for refill(s): Requested Prescriptions Pending Prescriptions Disp Refills glipiZIDE XL (GLUCOTROL XL) 2.5 mg 24 hr tablet [Pharmacy Med Name: GLIPIZIDE ER 2.5 MG TABLET] 90 tablet 1 Sig: take 1 tablet by mouth once daily Date of last office visit in primary care: 03/02/23 Last 2 Encounter Wt Readings: Date: Wt: 03/02/2023 78 kg (172 lb) 02/02/2023 73.5 kg (162 lb) Previous labs/tests for medication: Diabetes: Hemoglobin A1C (%) Date Value 01/28/2023 9.2 08/20/2022 6.7 09/11/2021 6.6 03/04/2021 6.7 Please advise. Thank you. Marlene Snow LPN documented in this encounter [facility] 03-13-2023 Miscellaneous Notes spoke with pharmacist and glipizide went through insurance with no problems. Marlene Snow LPN Glipizide ordered. Patient has reported nausea with glimepiride so not indicated. Thank you Radha Reyes APRN.LENNY Rec'd PA from [facility] for the glybiride. Called the pharmacy and they report they ran rx with a discount card and pt paid 12$ for 30. They ran the rx to see what formulary medicines are and they report it is glipizide or glimepiride. Are either of these appropriate? Did not review with pt. documented in this encounter [facility] 03-02-2023 Note HNO ID: [id number] Author: Radha Reyes APRN.[employer] EXAMINER Service: ? Author Type: Nurse Practitioner Type: Progress Notes Filed: 03/02/2023 11:25 AM Note Text: CC: Patient presents with: Recheck: DM follow up HPI Alva Todd is a 77 year old female who presents today for routine follow up. DIABETES MELLITUS: Ms. Todd denies excessive thirst or increased frequency of urination, chest pain or dyspnea , numbness, tingling or pain in extremities, new or unusual visual symptoms, low sugar/hypoglycemic reactions, weight loss/gain, lightheadedness/dizziness, and bowel changes/loose stools. Follows a diabetic diet most of the time. She is compliant with medication(s) and is tolerating med(s) without any side effects. At last appointment was started on glyburide and tolerating well with improved FBS. She reports checking her glucose on a once a day schedule 110s-150. Patient's last HgA1C was Hemoglobin A1C (%) Date Value 01/28/2023 9.2 08/20/2022 6.7 09/11/2021 6.6 03/04/2021 6.7 ) Last Ophthalmology exam was within the past [address] Regalado. HTN and A-fib: Ms. Todd indicates that she is feeling well and denies any symptoms referable to elevated blood pressure. Specifically denies headache, chest pain, palpitations, dyspnea, and peripheral edema. Patient denies any side effects of her medication(s) and is compliant with their regimen. She does check BP's away from this office with average BP's in the 110s-120s/60s-70s range. Alva works out regularly 7 times per week with walking and swimming. She watches her diet for sodium, low fat and low cholesterol most of the time. Last 3 Encounter BP Readings: Date: BP: 03/02/2023 152/92 - 132/82, history of white coat syndrome 02/02/2023 162/70 11/05/2022 168/84 Hypothyroidism: Taking Levothyroxine as ordered. States she feels better than she has felt in a year. Has more energy and just overall feels good. Needing refill on current dose. REVIEW OF SYSTEMS General: no fevers, no chills, no night sweats, no recurrent infections, no change in appetite, no change in energy, and no significant changes in weight Respiratory: no cough, no wheezing, no shortness of breath, no hemoptysis Cardiovascular: no chest pain, no chest pressure, no palpitations, and no swelling Endocrine: no fatigue, no polyuria, no polyphagia, and no polydipsia Neurologic: No headache, weakness, numbness, tingling, dizziness, memory loss, syncope. PAST MEDICAL HISTORY Diagnosis Date Abscess of chest (HCC) Essential hypertension, benign Pure hypercholesterolemia Type II or unspecified type diabetes mellitus without mention of complication, not stated as uncontrolled PAST SURGICAL HISTORY Procedure Laterality Date EYE SURGERY HX ALLERGIES Accupril [Quinapril Hcl], Altace [Ramipril], Amaryl [Glimepiride], Crestor [Rosuvastatin Calcium], Doxycycline, Lipitor [Atorvastatin Calcium], Pravachol [Pravastatin], and Zocor [Simvastatin] MEDICATIONS ezetimibe (ZETIA) 10 mg tablet Take 1 tablet by mouth once daily. Take 3 times per week blood sugar diagnostic (FREESTYLE LITE STRIPS) test strip TEST BLOOD SUGAR ONCE DAILY glyBURIDE 2.5 mg tablet Take 1 tablet by mouth daily with breakfast. spironolactone (ALDACTONE) 25 mg tablet Take 25 mg by mouth once daily. levothyroxine (LEVOXYL) 50 mcg tablet Take 1 tablet daily. Take on empty stomach. For Thyroid Ferrous Gluconate 225 mg (27 mg iron) tab Take 1 tablet by mouth once daily. pantoprazole DR (PROTONIX) 40 mg tablet Take 1 tablet by mouth daily before breakfast. Take on empty stomach, 1/2 hr before meal. ELIQUIS 5 mg tab(s) Take 6.25 mg by mouth twice daily. furosemide (LASIX) 20 mg tablet Take 20 mg by mouth once daily. losartan (COZAAR) 100 mg tablet Take 100 mg by mouth once daily. carvedilol (COREG) 6.25 mg tablet Take 2 tablets by mouth twice daily with meals. Blood-Glucose Meter monitoring kit Glucose Meter of Choice - Kit - Dx: Type 2 DM - Controlled E11.9 Checks blood sugar twice daily No family history on file. Social History Tobacco Use Smoking status: Never Smokeless tobacco: Never Substance Use Topics Alcohol use: Yes Comment: occasional Drug use: No PHYSICAL EXAM BP 132/82 Pulse (!) 52 Resp 16 Wt 78 kg (172 lb) BMI 34.74 kg/m? General Appearance: well appearing, in no acute distress, alert Skin: Skin color, texture, turgor normal for age; Eyes: conjunctiva pink and moist, no icterus, sclera white, non-injected Lungs: Lungs clear to auscultation. No wheezing, rhonchi, rales. Heart: RRR without murmur, gallop, or rubs. No ectopy Health maintenance reviewed with patient: BP CONTROLLED (<130/80) Never done DTAP,TDAP,TD(1 - Tdap) due on 04/02/2023 COVID-19 VACCINE(3 - Booster for Pfizer series) due on 04/02/2023 COLORECTAL CANCER SCREENING due on 11/05/2023 HBA1C due on 04/30/2023 INFLUENZA(Season Ended) due on 05/22/2023 LDL ALYCE (more content not included)... [facility] 02-02-2023 Note HNO ID: [id number] Author: Radha Reyes APRN.[employer] EXAMINER Service: ? Author Type: Nurse Practitioner Type: Progress Notes Filed: 02/02/2023 3:25 PM Note Text: Chief Complaint Patient presents with: Recheck: 3 month follow up HPI Alva Todd is a 77 year old female who presents here today for Above Complaints.. Diabetes Mellitus: A1C is 9.2 01/28, it was 6.7 in July. She was taken off metformin a few months ago due to kidney function and put on jardiance. She takes the jardiance daily. Brought in BS's from home, most are fast in the morning 170, 167, 150, 145, 170. Reports never being as high as she has been and her A1C never being this elevated. Denies any recent steroid use unless they gave it in the hospital, but that was a cardiac symptom stay. Reports she drinks a lot of water, voids often, but no vision changes acutely. Reports those symptoms are normal for her. Denies any changes in her diet, but has been more sedentary. Hasnt been exercising, less activity due to the winter and weather and difficulty with her leg pain and aches she was having. Usually in good weather she walks a lot and is in the pool with activity. Medication regimens discussed, would like to know if possible to go back to metformin. She has a large supply at home and she felt better and had more managed blood sugars on it. Discussed kidney function and that not being her best option, she would like to continue will pill form at this time and would like cost to be considered in treatment choice. Hypertension and HLD: checking blood pressure routinely at home and running in 100s-140/60-80. BP elevated today but has some pain walking and coming in with her legs, reports always running higher in the doctors office. BP cuff at home was calibrated. Denies chest pain, shortness of breath, palpitations, headaches, or dizziness. Hypothyroidism- feels much better since her medications were changed between her thyroid medications and amiodorone causing issues. She still loses some hair but it's improving. Much improved energy level and over feelings of wellness. Past medical history, appointments, medications, allergies reviewed. Previous Medical History PAST MEDICAL HISTORY Diagnosis Date Abscess of chest (HCC) Essential hypertension, benign Pure hypercholesterolemia Type II or unspecified type diabetes mellitus without mention of complication, not stated as uncontrolled Previous Surgical History PAST SURGICAL HISTORY Procedure Laterality Date EYE SURGERY HX Family History No family history on file. Patient Allergies ALLERGIES Allergen Reactions Accupril [Quinapril* cough Altace [Ramipril] cough Amaryl [Glimepiride] nausea Crestor [Rosuvastat* Muscle aches Doxycycline Rash, Diarrhea, Vomiting Photosensitivity dermatitis doxycycline hyclate Lipitor [Atorvastat* Pravachol [Pravasta* muscle aches Zocor [Simvastatin] Current Medications Current Outpatient Medications on File Prior to Visit Medication Sig blood sugar diagnostic (FREESTYLE LITE STRIPS) test strip TEST BLOOD SUGAR ONCE DAILY spironolactone (ALDACTONE) 25 mg tablet Take 25 mg by mouth once daily. empagliflozin (JARDIANCE) 25 mg tablet Take 1 tablet by mouth once daily. Take 1 tablet once daily in the morning levothyroxine (LEVOXYL) 50 mcg tablet Take 1 tablet daily. Take on empty stomach. For Thyroid levothyroxine (LEVOXYL) 50 mcg tablet Take 1 tablet daily. Take on empty stomach. For Thyroid Ferrous Gluconate 225 mg (27 mg iron) tab Take 1 tablet by mouth once daily. pantoprazole DR (PROTONIX) 40 mg tablet Take 1 tablet by mouth daily before breakfast. Take on empty stomach, 1/2 hr before meal. ezetimibe (ZETIA) 10 mg tablet Take 1 tablet by mouth once daily. Take 3 times per week ELIQUIS 5 mg tab(s) Take 6.25 mg by mouth twice daily. furosemide (LASIX) 20 mg tablet Take 20 mg by mouth once daily. losartan (COZAAR) 100 mg tablet Take 100 mg by mouth once daily. carvedilol (COREG) 6.25 mg tablet Take 2 tablets by mouth twice daily with meals. blood sugar diagnostic (BLOOD GLUCOSE TEST) test strip Test blood sugar(s) 2 times daily. Dx: Type 2 DM - Controlled E11.9 Insulin: No Blood-Glucose Meter monitoring kit Glucose Meter of Choice - Kit - Dx: Type 2 DM - Controlled E11.9 Checks blood sugar twice daily No current facility-administered medications on file prior to visit. Social History Social History Tobacco Use Smoking status: Never Smokeless tobacco: Never Substance Use Topics Alcohol use: Yes Comment: occasional Drug use: No Review of Symptoms REVIEW OF SYSTEMS GENERAL: No weight loss, malaise or fevers RESPIRATORY: Negative for cough, hemoptysis, wheezing dyspnea or shortness of breath CARDIOVASCULAR: Negative for chest pain, leg swelling, or palpitations GI: No nausea, vomiting, or diarrhea ENDOCRINE: Negative for cold or heat intolerance, polyuria, kylee (more content not included)... [facility] 02-02-2023 Instructions Shannan Redd - 02/02/2023 10:57 AM EDT Start your glyburide, make sure you take it with food as it can drop your blood sugar Continue logging the blood pressures and blood sugars. Try to document whether blood sugar is fasting in the morning, and get some that are 2 hours after eating. Get your labs today documented in this encounter [facility] 02-02-2023 History of Present illness Narrative Chief Complaint Patient presents with: Recheck: 3 month follow up HPI Alva Todd is a 77 year old female who presents here today for Above Complaints.. Diabetes Mellitus: A1C is 9.2 01/28, it was 6.7 in July. She was taken off metformin a few months ago due to kidney function and put on jardiance. She takes the jardiance daily. Brought in BS's from home, most are fast in the morning 170, 167, 150, 145, 170. Reports never being as high as she has been and her A1C never being this elevated. Denies any recent steroid use unless they gave it in the hospital, but that was a cardiac symptom stay. Reports she drinks a lot of water, voids often, but no vision changes acutely. Reports those symptoms are normal for her. Denies any changes in her diet, but has been more sedentary. Hasnt been exercising, less activity due to the winter and weather and difficulty with her leg pain and aches she was having. Usually in good weather she walks a lot and is in the pool with activity. Medication regimens discussed, would like to know if possible to go back to metformin. She has a large supply at home and she felt better and had more managed blood sugars on it. Discussed kidney function and that not being her best option, she would like to continue will pill form at this time and would like cost to be considered in treatment choice. Hypertension and HLD: checking blood pressure routinely at home and running in 100s-140/60-80. BP elevated today but has some pain walking and coming in with her legs, reports always running higher in the doctors office. BP cuff at home was calibrated. Denies chest pain, shortness of breath, palpitations, headaches, or dizziness. Hypothyroidism- feels much better since her medications were changed between her thyroid medications and amiodorone causing issues. She still loses some hair but it's improving. Much improved energy level and over feelings of wellness. Past medical history, appointments, medications, allergies reviewed. Previous Medical History PAST MEDICAL HISTORY Diagnosis Date Abscess of chest (HCC) Essential hypertension, benign Pure hypercholesterolemia Type II or unspecified type diabetes mellitus without mention of complication, not stated as uncontrolled Previous Surgical History PAST SURGICAL HISTORY Procedure Laterality Date EYE SURGERY HX Family History No family history on file. Patient Allergies ALLERGIES Allergen Reactions Accupril [Quinapril* cough Altace [Ramipril] cough Amaryl [Glimepiride] nausea Crestor [Rosuvastat* Muscle aches Doxycycline Rash, Diarrhea, Vomiting Photosensitivity dermatitis doxycycline hyclate Lipitor [Atorvastat* Pravachol [Pravasta* muscle aches Zocor [Simvastatin] Current Medications Current Outpatient Medications on File Prior to Visit Medication Sig blood sugar diagnostic (FREESTYLE LITE STRIPS) test strip TEST BLOOD SUGAR ONCE DAILY spironolactone (ALDACTONE) 25 mg tablet Take 25 mg by mouth once daily. empagliflozin (JARDIANCE) 25 mg tablet Take 1 tablet by mouth once daily. Take 1 tablet once daily in the morning levothyroxine (LEVOXYL) 50 mcg tablet Take 1 tablet daily. Take on empty stomach. For Thyroid levothyroxine (LEVOXYL) 50 mcg tablet Take 1 tablet daily. Take on empty stomach. For Thyroid Ferrous Gluconate 225 mg (27 mg iron) tab Take 1 tablet by mouth once daily. pantoprazole DR (PROTONIX) 40 mg tablet Take 1 tablet by mouth daily before breakfast. Take on empty stomach, 1/2 hr before meal. ezetimibe (ZETIA) 10 mg tablet Take 1 tablet by mouth once daily. Take 3 times per week ELIQUIS 5 mg tab(s) Take 6.25 mg by mouth twice daily. furosemide (LASIX) 20 mg tablet Take 20 mg by mouth once daily. losartan (COZAAR) 100 mg tablet Take 100 mg by mouth once daily. carvedilol (COREG) 6.25 mg tablet Take 2 tablets by mouth twice daily with meals. blood sugar diagnostic (BLOOD GLUCOSE TEST) test strip Test blood sugar(s) 2 times daily. Dx: Type 2 DM - Controlled E11.9 Insulin: No Blood-Glucose Meter monitoring kit Glucose Meter of Choice - Kit - Dx: Type 2 DM - Controlled E11.9 Checks blood sugar twice daily No current facility-administered medications on file prior to visit. Social History Social History Tobacco Use Smoking status: Never Smokeless tobacco: Never Substance Use Topics Alcohol use: Yes Comment: occasional Drug use: No Review of Symptoms REVIEW OF SYSTEMS GENERAL: No weight loss, malaise or fevers RESPIRATORY: Negative for cough, hemoptysis, wheezing dyspnea or shortness of breath CARDIOVASCULAR: Negative for chest pain, leg swelling, or palpitations GI: No nausea, vomiting, or diarrhea ENDOCRINE: Negative for cold or heat intolerance, polyuria, polydipsia and goiter NEURO: No history of headaches, syncope, paralysis, seizures or tremors EXAM: BP 162/70 Pulse (!) 52 Resp 16 Wt 73.5 kg (162 lb) BMI 32.72 kg/m General Appearance: Well appearing, alert, in no acute distress, well-hydrated, well nourished.. Skin: Skin color normal Head: Normocephalic, no masses, lesions, tenderness or abnormalities. Eyes: Anicteric sclera. Pupils are equally round and reactive to light. Extraocular movements are intact. . Neck: Supple, no adenopathy; thyroid symmetric, normal size, no bruits. Lungs: Lungs clear to auscultation. No wheezing, rhonchi, rales.. Heart: RRR without murmur, gallop. No ectopy. Health Maintenance List BP CONTROLLED (<130/80) Never done DIABETIC FOOT EXAM due on 03/03/2023 DTAP,TDAP,TD(1 - Tdap) due on 04/02/2023 COVID-19 VACCINE(3 - Booster for Pfizer series) due on 04/02/2023 COLORECTAL CANCER SCREENING due on 11/05/2023 HBA1C due on 04/30/2023 INFLUENZA(Season Ended) due on 05/22/2023 LDL CHOLESTEROL due on 08/20/2023 ANNUAL PCP TEAM CHRONIC DISEASE VISIT due on 11/05/2023 DILATED RETINAL EXAM due on 12/02/2023 URINE ALBUMIN:CREATININE RATIO due on 01/29/2024 BONE DENSITY Completed ADVANCE DIRECTIVE DISCUSSION Completed DEPRESSION ASSESSMENT Completed HEPATITIS C SCREENING Completed SHINGRIX VACCINE Completed PNEUMOCOCCAL: 65+ Completed Data reviewed Most recent labs ASSESSMENT/PLAN: 1. Type 2 diabetes mellitus with chronic kidney disease, with long-term current use of insulin, unspecified CKD stage (HCC) - ICD9: 250.40, 585.9, V58.67, ICD10: E11.22, Z79.4 (primary diagnosis) - Worsening control - Continue current medications starting on glyburide. Reported of nausea in the past with glimepiride but patient denies remembering this. Patient to notify office immediately for any side effects - kidney function needs re-evaluated prior to considering restarting metformin - Blood glucose monitoring on a once daily schedule - Counseled on healthy diet and regular exercise - Discussed need for and benefit of weight loss. BMI 32.72 kg/(m^2) - BASIC METABOLIC PNL - CBC + DIFF - GLYBURIDE 2.5 MG TABLET 2. Essential hypertension, benign - ICD9: 401.1, ICD10: I10 - suboptimal control - Continue current medication(s) - Encouraged dietary sodium restriction/DASH diet - Recommended regular aerobic exercise. - Recommend home blood pressure monitoring, to bring results in on next visit - Goal of BP <130/80 - BASIC METABOLIC PNL - CBC + DIFF 3. Hypothyroidism, unspecified type - ICD9: 244.9, ICD10: E03.9 - Instructed patient on importance of taking on an empty stomach either first thing in the morning or at bedtime. - symptoms improving - TSH BLD - T3 BLD - T4 FREE/FREE THYROX 4. Pure hypercholesterolemia - ICD9: 272.0, ICD10: E78.00 - Control to be evaluated with lab results - EZETIMIBE 10 MG TABLET - Recommended regular aerobic exercise. - low fat diet recommended Prescription instructions reviewed with patient as applicable. Potential red flag symptoms discussed with the patient. Reviewed appropriate action plan to take if red flag symptoms occur. Patient agreeable to treatment plan. Radha Reyes APRN.LENNY documented in this encounter [facility] 01-20-2023 Note Patient Outreach (IN [facility]) ALVA TODD ([id number]) 1945 F Date Time Provider Department 01/20/23 ANAYELI PANDA During your visit today, we recorded the following information about you: Allergies As of Date: 01/20/2023 Noted Allergy Reaction ACCUPRIL (QUINAPRIL HCL) 10/24/2005 Comments: cough ALTACE (RAMIPRIL) 10/24/2005 Comments: cough AMARYL (GLIMEPIRIDE) 10/24/2005 Comments: nausea CRESTOR (ROSUVASTATIN CALCIUM) 02/13/2009 Comments: Muscle aches DOXYCYCLINE 04/16/2015 2 - Rash 6 - Diarrhea 11 - Vomiting Comments: Photosensitivity dermatitis doxycycline hyclate LIPITOR (ATORVASTATIN CALCIUM) 10/24/2005 PRAVACHOL (PRAVASTATIN) 01/07/2010 Comments: muscle aches ZOCOR (SIMVASTATIN) 10/24/2005 Date Reviewed: 11/05/2022 Reviewed by: Miriam Pond Ma - Fully Assessed Visit Diagnosis:Diabetes mellitus type 2, controlled, without complications (HCC) [E11.9] Order(s):ALBUMIN/CREAT RATIO RND UR [SQUACR] Order #: [id number] FUTURE HGB A1C [MNUBP7V] Order #: [id number] FUTURE Prescriptions as of 01/23/2023 - blood sugar diagnostic (FREESTYLE LITE STRIPS) test strip TEST BLOOD SUGAR ONCE DAILY - spironolactone (ALDACTONE) 25 mg tablet Take 25 mg by mouth once daily. - empagliflozin (JARDIANCE) 25 mg tablet Take 1 tablet by mouth once daily. Take 1 tablet once daily in the morning - levothyroxine (LEVOXYL) 50 mcg tablet Take 1 tablet daily. Take on empty stomach. For Thyroid - levothyroxine (LEVOXYL) 50 mcg tablet Take 1 tablet daily. Take on empty stomach. For Thyroid - Ferrous Gluconate 225 mg (27 mg iron) tab Take 1 tablet by mouth once daily. - pantoprazole DR (PROTONIX) 40 mg tablet Take 1 tablet by mouth daily before breakfast. Take on empty stomach, 1/2 hr before meal. - ezetimibe (ZETIA) 10 mg tablet Take 1 tablet by mouth once daily. Take 3 times per week - ELIQUIS 5 mg tab(s) Take 6.25 mg by mouth twice daily. - furosemide (LASIX) 20 mg tablet Take 20 mg by mouth once daily. - losartan (COZAAR) 100 mg tablet Take 100 mg by mouth once daily. - carvedilol (COREG) 6.25 mg tablet Take 2 tablets by mouth twice daily with meals. - blood sugar diagnostic (BLOOD GLUCOSE TEST) test strip Test blood sugar(s) 2 times daily. 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] 11/01/2013 Senile nuclear sclerosis [H25.10] 11/01/2013 Open-angle glaucoma, unspecified(365.10) [H40.1*11/01/2013 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 without d*11/01/2013 Morbid (severe) obesity due to excess calories *12/10/2017 09/16/2021 Hypercalcemia [E83.52] 04/09/2020 Encounter Status:Closed by [employer] on 01/23/23 [facility] 01-12-2023 Miscellaneous Notes Patient has been identified by name and date of : No Patient phones for refill(s): Requested Prescriptions Pending Prescriptions Disp Refills blood sugar diagnostic (FREESTYLE LITE STRIPS) test strip [Pharmacy Med Name: FREESTYLE LITE STRIPS 100'S] 100 Strip 3 Sig: TEST BLOOD SUGAR ONCE DAILY Date of last office visit in primary care: 11/05/22 Last 2 Encounter Wt Readings: Date: Wt: 11/05/2022 81.6 kg (180 lb) 09/08/2022 80.3 kg (177 lb) Previous labs/tests for medication: Diabetes: Hemoglobin A1C (%) Date Value 08/20/2022 6.7 02/24/2022 7.3 09/11/2021 6.6 03/04/2021 6.7 Please advise. Thank you. Marlene Snow LPN documented in this encounter [facility] 12-08-2022 Miscellaneous Notes Spoke with pt and information listed below given. Pt verbalizes understanding. Pt transferred to application development specialist to get apt with Endocrinology. Daly Browning LPN Please let patient know that thyroid levels have improved but not enough. Please verify she is taking 50mcg daily. If so, she needs to increase to an extra 1/2 tablet twice weekly (equaling total of 75mcg twice a week). Levels need rechecked in 4-6 weeks. As we are having such difficulty improving her thyroid levels and she has so many symptoms and health concerns over the last year, I am consulting her to endocrinology for further evaluation. No improvement in kidney function. Will have her stop the metformin and further review at upcoming appointment unless she notices increase in home blood sugar readings and we will need to have her come in earlier. Thank you Radha Reyes APRN.CNP documented in this encounter [facility] 11-14-2022 Miscellaneous Notes Pt called and is notified of providers message and instructions. Pt voices understanding. Ann Schmid RN These labs were supposed to be completed mid november 4 weeks after her recent appointment. Will need redrawn in 4 weeks as thyroid levels were too early to evaluate post change of dosage. And kidney function was to be checked 4 weeks after. Orders placed again Thank you Radha Reyes APRN.CNP documented in this encounter [facility] 11-06-2022 Miscellaneous Notes Patient informed. Meka Zarco ----- Message from Anayeli Panda MD sent at 11/05/2022 1:13 PM EST ----- Mag levels are normal documented in this encounter [facility] 11-05-2022 Note HNO ID: [id number] Author: Radha Reyes APRN.SOCK LINING EXAMINER Service: ? Author Type: Nurse Practitioner Type: Progress Notes Filed: 11/05/2022 4:11 PM Note Text: CC: Patient presents with: Recheck: 6 week follow up HPI Alva Todd is a 77 year old female who presents today for 6 week follow up on hypertension, and diabetes . Last visit metformin was decreased to 1 tablet daily because of kidney function and jardiance increased to 25mg once a day. Still with fatigue and has no energy and muscles hurt since new medication last summer for a-fib and decreased ejection fraction. Also has had a 12 pound weight gain in the last 2 months. Has been seeing cardiology regularly with recent medication changes. HTN: Ms. Todd indicates that she is feeling well and denies any symptoms referable to elevated blood pressure. Specifically denies headache, chest pain, palpitations, dyspnea, and peripheral edema. Patient denies any side effects of her medication(s) and is compliant with their regimen. She does check BP's away from this office with average BP's in the 120s/70s range since starting spironolactone this past Thursday. Alva denies regular aerobic exercise. She watches her diet for sodium, low fat and low cholesterol most of the time. Last 3 Encounter BP Readings: Date: BP: 11/05/2022 168/84 10/06/2022 145/74[BP Gopi[ 09/08/2022 146/76 Saw cardiology on Thursday and started on spironolactone. Has started this as ordered and already seeing improved readings at home. Is elevated in office today but states she is being monitored by cardiology. DIABETES MELLITUS: Ms. Todd denies excessive thirst or increased frequency of urination, chest pain or dyspnea , numbness, tingling or pain in extremities, new or unusual visual symptoms, low sugar/hypoglycemic reactions, lightheadedness/dizziness, and bowel changes/loose stools. Follows a diabetic diet most of the time. She is compliant with medication(s) and is tolerating med(s) without any side effects but had medication changes at last visit and unsure if she is taking them as prescribed at last appointment. She reports checking her glucose on a once a day schedule with sugars in the fasting 120s-140s range. Patient's last HgA1C was Hemoglobin A1C (%) Date Value 08/20/2022 6.7 02/24/2022 7.3 09/11/2021 6.6 03/04/2021 6.7 ) Hypothyroidism: Cardiology felt amiodarone was affecting thyroid levels so discontinued this 4 weeks ago. 6 weeks ago increased her levothyroxine dosage slightly with TSH getting even higher and patient still very symptomatic. Intolerance to cold, fatigue, and weight gain without cause. Mother of thyroid cancer in her 40s. Patient denies any difficulty swallowing, neck changes, or other concerns. REVIEW OF SYSTEMS General: no fevers, no chills, no night sweats, no recurrent infections, no change in appetite, no change in energy, and no significant changes in weight Neck: no lumps, no pain , and no swelling Respiratory: no cough, no wheezing, no shortness of breath, no hemoptysis Cardiovascular: no chest pain, no chest pressure, no palpitations, and no swelling GI: No nausea, vomiting, or diarrhea Endocrine: no heat intolerance, no polyuria, no polyphagia, and no polydipsia Neurologic: No headache, weakness, numbness, tingling, neck stiffness, tremor, vertigo, dizziness, memory loss, syncope. Psych: PHQ2 is 0 PAST MEDICAL HISTORY Diagnosis Date Abscess of chest (HCC) Essential hypertension, benign Pure hypercholesterolemia Type II or unspecified type diabetes mellitus without mention of complication, not stated as uncontrolled PAST SURGICAL HISTORY Procedure Laterality Date EYE SURGERY HX ALLERGIES Accupril [Quinapril Hcl], Altace [Ramipril], Amaryl [Glimepiride], Crestor [Rosuvastatin Calcium], Doxycycline, Lipitor [Atorvastatin Calcium], Pravachol [Pravastatin], and Zocor [Simvastatin] MEDICATIONS empagliflozin (JARDIANCE) 25 mg tablet Take 1 tablet by mouth once daily. Take 1 tablet once daily in the morning metFORMIN (GLUCOPHAGE) 500 mg tablet Take 1 tablet by mouth daily with breakfast. levothyroxine (LEVOXYL) 25 mcg tablet Take 1 tablet daily except take 2 tablets on Thursday. Take on empty stomach. For Thyroid ezetimibe (ZETIA) 10 mg tablet Take 1 tablet by mouth once daily. Take 3 times per week ELIQUIS 5 mg tab(s) Take 6.25 mg by mouth twice daily. furosemide (LASIX) 20 mg tablet Take 20 mg by mouth once daily. losartan (COZAAR) 100 mg tablet Take 100 mg by mouth once daily. carvedilol (COREG) 6.25 mg tablet Take 2 tablets by mouth twice daily with meals. spironolactone (ALDACTONE) 25 mg tablet Take 25 mg by mouth once daily. empagliflozin (JARDIANCE) 25 mg tablet Take 1 tablet by mouth once daily. Take 1 tablet once daily in the morning amiodarone (PACERONE) 200 mg tablet Take 1 tablet by mouth once daily. Ferrous Gluconate 225 mg (27 mg iron) tab Take 1 tab (more content not included)... [facility] 11-05-2022 History of Present illness Narrative CC: Patient presents with: Recheck: 6 week follow up HPI Alva Todd is a 77 year old female who presents today for 6 week follow up on hypertension, and diabetes . Last visit metformin was decreased to 1 tablet daily because of kidney function and jardiance increased to 25mg once a day. Still with fatigue and has no energy and muscles hurt since new medication last summer for a-fib and decreased ejection fraction. Also has had a 12 pound weight gain in the last 2 months. Has been seeing cardiology regularly with recent medication changes. HTN: Ms. Todd indicates that she is feeling well and denies any symptoms referable to elevated blood pressure. Specifically denies headache, chest pain, palpitations, dyspnea, and peripheral edema. Patient denies any side effects of her medication(s) and is compliant with their regimen. She does check BP's away from this office with average BP's in the 120s/70s range since starting spironolactone this past Thursday. Alva denies regular aerobic exercise. She watches her diet for sodium, low fat and low cholesterol most of the time. Last 3 Encounter BP Readings: Date: BP: 11/05/2022 168/84 10/06/2022 145/74[BP Gopi[ 09/08/2022 146/76 Saw cardiology on Thursday and started on spironolactone. Has started this as ordered and already seeing improved readings at home. Is elevated in office today but states she is being monitored by cardiology. DIABETES MELLITUS: Ms. Todd denies excessive thirst or increased frequency of urination, chest pain or dyspnea , numbness, tingling or pain in extremities, new or unusual visual symptoms, low sugar/hypoglycemic reactions, lightheadedness/dizziness, and bowel changes/loose stools. Follows a diabetic diet most of the time. She is compliant with medication(s) and is tolerating med(s) without any side effects but had medication changes at last visit and unsure if she is taking them as prescribed at last appointment. She reports checking her glucose on a once a day schedule with sugars in the fasting 120s-140s range. Patient's last HgA1C was Hemoglobin A1C (%) Date Value 08/20/2022 6.7 02/24/2022 7.3 09/11/2021 6.6 03/04/2021 6.7 ) Hypothyroidism: Cardiology felt amiodarone was affecting thyroid levels so discontinued this 4 weeks ago. 6 weeks ago increased her levothyroxine dosage slightly with TSH getting even higher and patient still very symptomatic. Intolerance to cold, fatigue, and weight gain without cause. Mother of thyroid cancer in her 40s. Patient denies any difficulty swallowing, neck changes, or other concerns. REVIEW OF SYSTEMS General: no fevers, no chills, no night sweats, no recurrent infections, no change in appetite, no change in energy, and no significant changes in weight Neck: no lumps, no pain , and no swelling Respiratory: no cough, no wheezing, no shortness of breath, no hemoptysis Cardiovascular: no chest pain, no chest pressure, no palpitations, and no swelling GI: No nausea, vomiting, or diarrhea Endocrine: no heat intolerance, no polyuria, no polyphagia, and no polydipsia Neurologic: No headache, weakness, numbness, tingling, neck stiffness, tremor, vertigo, dizziness, memory loss, syncope. Psych: PHQ2 is 0 PAST MEDICAL HISTORY Diagnosis Date Abscess of chest (HCC) Essential hypertension, benign Pure hypercholesterolemia Type II or unspecified type diabetes mellitus without mention of complication, not stated as uncontrolled PAST SURGICAL HISTORY Procedure Laterality Date EYE SURGERY HX ALLERGIES Accupril [Quinapril Hcl], Altace [Ramipril], Amaryl [Glimepiride], Crestor [Rosuvastatin Calcium], Doxycycline, Lipitor [Atorvastatin Calcium], Pravachol [Pravastatin], and Zocor [Simvastatin] MEDICATIONS empagliflozin (JARDIANCE) 25 mg tablet Take 1 tablet by mouth once daily. Take 1 tablet once daily in the morning metFORMIN (GLUCOPHAGE) 500 mg tablet Take 1 tablet by mouth daily with breakfast. levothyroxine (LEVOXYL) 25 mcg tablet Take 1 tablet daily except take 2 tablets on Thursday. Take on empty stomach. For Thyroid ezetimibe (ZETIA) 10 mg tablet Take 1 tablet by mouth once daily. Take 3 times per week ELIQUIS 5 mg tab(s) Take 6.25 mg by mouth twice daily. furosemide (LASIX) 20 mg tablet Take 20 mg by mouth once daily. losartan (COZAAR) 100 mg tablet Take 100 mg by mouth once daily. carvedilol (COREG) 6.25 mg tablet Take 2 tablets by mouth twice daily with meals. spironolactone (ALDACTONE) 25 mg tablet Take 25 mg by mouth once daily. empagliflozin (JARDIANCE) 25 mg tablet Take 1 tablet by mouth once daily. Take 1 tablet once daily in the morning amiodarone (PACERONE) 200 mg tablet Take 1 tablet by mouth once daily. Ferrous Gluconate 225 mg (27 mg iron) tab Take 1 tablet by mouth once daily. pantoprazole DR (PROTONIX) 40 mg tablet Take 1 tablet by mouth daily before breakfast. Take on empty stomach, 1/2 hr before meal. blood sugar diagnostic (FREESTYLE LITE STRIPS) test strip Test blood sugar(s) 1 times daily. Dx: Type 2 DM - Controlled E11.9 Insulin: No blood sugar diagnostic (BLOOD GLUCOSE TEST) test strip Test blood sugar(s) 2 times daily. Dx: Type 2 DM - Controlled E11.9 Insulin: No Blood-Glucose Meter monitoring kit Glucose Meter of Choice - Kit - Dx: Type 2 DM - Controlled E11.9 Checks blood sugar twice daily No family history on file. Social History Tobacco Use Smoking status: Never Smokeless tobacco: Never Substance Use Topics Alcohol use: Yes Comment: occasional Drug use: No PHYSICAL EXAM BP 168/84 Pulse 60 Resp 16 Wt 81.6 kg (180 lb) BMI 36.36 kg/m General Appearance: well appearing, in no acute distress, alert Pysch: mood and affect broad and appropriate Skin: Skin color, texture, turgor normal for age; Eyes: conjunctiva pink and moist, no icterus, sclera white, non-injected Neck: Thyroid normal size and symmetric without palpable nodules, No adenopathy Lymph nodes: No cervical lymphadenopathy and No supraclavicular lymphadenopathy Lungs: Lungs clear to auscultation. No wheezing, rhonchi, rales. Heart: RRR without murmur, gallop, or rubs. No ectopy BUE Extremities: No deformities, edema, skin discoloration, clubbing or cyanosis. Good capillary refill. Health maintenance reviewed with patient: BP CONTROLLED (<130/80) Never done COLORECTAL CANCER SCREENING due on 09/03/2022 ADVANCE DIRECTIVE DISCUSSION due on 09/21/2022 DEPRESSION ASSESSMENT due on 09/21/2022 DILATED RETINAL EXAM due on 11/25/2022 INFLUENZA(1) due on 03/20/2023 DTAP,TDAP,TD(1 - Tdap) due on 04/02/2023 COVID-19 VACCINE(3 - Booster for Pfizer series) due on 04/02/2023 HBA1C due on 02/17/2023 URINE ALBUMIN:CREATININE RATIO due on 02/24/2023 DIABETIC FOOT EXAM due on 03/03/2023 LDL CHOLESTEROL due on 08/20/2023 ANNUAL PCP TEAM CHRONIC DISEASE VISIT due on 10/06/2023 BONE DENSITY Completed HEPATITIS C SCREENING Completed SHINGRIX VACCINE Completed PNEUMOCOCCAL: 65+ Completed DATA REVIEWED: Most recent labs ASSESSMENT/PLAN: 1. Controlled type 2 diabetes mellitus without complication, without long-term current use of insulin (HCC) - ICD9: 250.00, ICD10: E11.9 (primary diagnosis) Controlled. - Continue current medications - Blood glucose monitoring on a once a day schedule - BP goal of <130/80 - LDL goal of <100 - METFORMIN 500 MG TABLET - follow up in 3 months 2. Essential hypertension, benign - ICD9: 401.1, ICD10: I10 - varying control - patient does not want any medication changes or new appointments at this time. States she will continue to monitor at home and follow up with cardiology as directed by them. - Continue current medication(s) - Encouraged dietary sodium restriction/DASH diet - Recommended regular aerobic exercise. - Recommend home blood pressure monitoring, to bring results in on next visit - Goal of BP <130/80 3. Function kidney decreased - ICD9: 593.9, ICD10: N28.9 - patient indicating that she did not decrease her metformin as previously ordered, will recheck BMP in 4 weeks after med change has for sure been completed - BASIC METABOLIC PNL 4. Hypothyroidism, unspecified type - ICD9: 244.9, ICD10: E03.9 - Instructed patient on importance of taking on an empty stomach either first thing in the morning or at bedtime. Weight increasing and other symptoms of fatigue and cold intolerance. With no improvement and actual worsening TSH levels with increasign by 1 tablet once a week, will increase by 25mcg daily to equal 50mcg once daily. Discussed signs of hyperthyroidism with patient. - TSH BLD, t3 and t4 5. Medication management - ICD9: V58.69, ICD10: Z79.899 - TSH BLD, t3 and t4 Prescription instructions reviewed with patient as applicable. Potential red flag symptoms discussed with the patient. Reviewed appropriate action plan to take if red flag symptoms occur. Patient agreeable to treatment plan. Radha Reyse APRN.LENNY documented in this encounter [facility] 10-21-2022 Note Patient Outreach (IN TMMN) ALVA TODD ([id number]) 1945 F Date Time Provider Department 10/21/22 ANAYELI PANDA During your visit today, we recorded the following information about you: Allergies As of Date: 10/21/2022 Noted Allergy Reaction ACCUPRIL (QUINAPRIL HCL) 10/24/2005 Comments: cough ALTACE (RAMIPRIL) 10/24/2005 Comments: cough AMARYL (GLIMEPIRIDE) 10/24/2005 Comments: nausea CRESTOR (ROSUVASTATIN CALCIUM) 02/13/2009 Comments: Muscle aches DOXYCYCLINE 04/16/2015 2 - Rash 6 - Diarrhea 11 - Vomiting Comments: Photosensitivity dermatitis doxycycline hyclate LIPITOR (ATORVASTATIN CALCIUM) 10/24/2005 PRAVACHOL (PRAVASTATIN) 01/07/2010 Comments: muscle aches ZOCOR (SIMVASTATIN) 10/24/2005 Date Reviewed: 09/08/2022 Reviewed by: Marlene Snow LPN - Fully Assessed Visit Diagnosis:Medication management [Z79.899] Order(s):MAGNESIUM BLD [SQMG1] Order #: [id number] FUTURE SCHEDULE LAB TESTING [[id number]] Order #: [id number] FUTURE Prescriptions as of 10/24/2022 - empagliflozin (JARDIANCE) 25 mg tablet Take 1 tablet by mouth once daily. Take 1 tablet once daily in the morning - metFORMIN (GLUCOPHAGE) 500 mg tablet Take 1 tablet by mouth daily with breakfast. - empagliflozin (JARDIANCE) 25 mg tablet Take 1 tablet by mouth once daily. Take 1 tablet once daily in the morning - amiodarone (PACERONE) 200 mg tablet Take 1 tablet by mouth once daily. - levothyroxine (LEVOXYL) 25 mcg tablet Take 1 tablet daily except take 2 tablets on Thursday. Take on empty stomach. For Thyroid - Ferrous Gluconate 225 mg (27 mg iron) tab Take 1 tablet by mouth once daily. - pantoprazole DR (PROTONIX) 40 mg tablet Take 1 tablet by mouth daily before breakfast. Take on empty stomach, 1/2 hr before meal. - ezetimibe (ZETIA) 10 mg tablet Take 1 tablet by mouth once daily. Take 3 times per week - ELIQUIS 5 mg tab(s) Take 6.25 mg by mouth twice daily. - furosemide (LASIX) 20 mg tablet Take 20 mg by mouth once daily. - losartan (COZAAR) 100 mg tablet Take 100 mg by mouth once daily. - carvedilol (COREG) 6.25 mg tablet Take 2 tablets by mouth twice daily with meals. - blood sugar diagnostic (FREESTYLE LITE STRIPS) test strip Test blood sugar(s) 1 times daily. Dx: Type 2 DM - Controlled E11.9 Insulin: No - blood sugar diagnostic (BLOOD GLUCOSE TEST) test strip Test blood sugar(s) 2 times daily. 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 Patient stated that she will call this office back if she decides to have procedure done. Marlene Snow LPN Please let patient know our general surgery agree she needs repeat scoped with her anemia. Also they would recommend this be completed in a hospital setting for better monitoring of her atrial fibrillation during procedure. Would she like to schedule with our general surgery department? I have placed the order if she would like to schedule. Thank you Radha Reyes APRN.LENNY documented in this encounter [facility] 01-18-2023 Miscellaneous Notes Noted. Radha Reyes APRN.CNP Pt wanted to let provider know that pt has an appt Weds 10/08 with Isabella Loja with [facility] Cardiology. Irasema Cardona LPN documented in this encounter [facility] 10-06-2022 Note HNO ID: [id number] Author: Radha Reyes APRN.CNP Service: ? Author Type: Nurse Practitioner Type: Progress Notes Filed: 10/06/2022 5:14 PM Note Text: CC: Patient presents with: Recheck: BP follow up HPI Alva Todd is a 77 year old female who presents today for follow up on blood pressure. Per patient she feels extremely fatigued, has muscle aches, nauseated and just does not feel well since being put on so many medications this summer for new onset afib. Has anemia and has positive occult blood for stool since starting the eliquis. Was consulted to Dr. Murphy as per her request but he felt she was fine and did not require re-evaluation since last colonoscopy was 3 years ago for previous positive occult. HTN: Ms. Todd indicates that she is feeling well and denies any symptoms referable to elevated blood pressure. Specifically denies headache, chest pain, palpitations, dyspnea, and peripheral edema. Patient denies any side effects of her medication(s) and is compliant with their regimen. She does check BP's away from this office with average BP's in the 130s-140/70s range. Alva denies regular aerobic exercise. She watches her diet for sodium, low fat and low cholesterol most of the time. 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 DIABETES MELLITUS: Ms. Todd denies excessive thirst or increased frequency of urination, chest pain or dyspnea , numbness, tingling or pain in extremities, new or unusual visual symptoms, low sugar/hypoglycemic reactions, weight loss/gain, and bowel changes/loose stools. Follows a diabetic diet most of the time. She is compliant with medication(s) and is tolerating med(s) without any side effects. She reports checking her glucose on a once a day schedule with sugars in the fasting 120s-130s range. Patient's last HgA1C was Hemoglobin A1C (%) Date Value 08/20/2022 6.7 02/24/2022 7.3 09/11/2021 6.6 03/04/2021 6.7 ) REVIEW OF SYSTEMS General: no fevers, no chills, no night sweats, no recurrent infections, and no significant changes in weight Respiratory: no cough, no wheezing, no shortness of breath, no hemoptysis Cardiovascular: no chest pain, no chest pressure, no palpitations, and no swelling GI: no vomiting, diarrhea, or abdominal pain : No history of dysuria, frequency or incontinence Endocrine: no weight gain, no weight loss, no cold intolerance, no heat intolerance, no polyuria, no polyphagia, and no polydipsia Neurologic: No headache, weakness, numbness, tingling, memory loss, syncope. PAST MEDICAL HISTORY Diagnosis Date Abscess of chest (HCC) Essential hypertension, benign Pure hypercholesterolemia Type II or unspecified type diabetes mellitus without mention of complication, not stated as uncontrolled PAST SURGICAL HISTORY Procedure Laterality Date EYE SURGERY HX ALLERGIES Accupril [Quinapril Hcl], Altace [Ramipril], Amaryl [Glimepiride], Crestor [Rosuvastatin Calcium], Doxycycline, Lipitor [Atorvastatin Calcium], Pravachol [Pravastatin], and Zocor [Simvastatin] MEDICATIONS JARDIANCE 10 mg tablet take 1 tablet by mouth every morning levothyroxine (LEVOXYL) 25 mcg tablet Take 1 tablet daily except take 2 tablets on Thursday. Take on empty stomach. For Thyroid metFORMIN (GLUCOPHAGE) 500 mg tablet Take 1 tablet by mouth twice daily with meals. Ferrous Gluconate 225 mg (27 mg iron) tab Take 1 tablet by mouth once daily. pantoprazole DR (PROTONIX) 40 mg tablet Take 1 tablet by mouth daily before breakfast. Take on empty stomach, 1/2 hr before meal. ezetimibe (ZETIA) 10 mg tablet Take 1 tablet by mouth once daily. Take 3 times per week ELIQUIS 5 mg tab(s) Take 6.25 mg by mouth twice daily. furosemide (LASIX) 20 mg tablet Take 20 mg by mouth once daily. losartan (COZAAR) 100 mg tablet Take 100 mg by mouth once daily. carvedilol (COREG) 6.25 mg tablet Take 2 tablets by mouth twice daily with meals. blood sugar diagnostic (FREESTYLE LITE STRIPS) test strip Test blood sugar(s) 1 times daily. Dx: Type 2 DM - Controlled E11.9 Insulin: No blood sugar diagnostic (BLOOD GLUCOSE TEST) test strip Test blood sugar(s) 2 times daily. Dx: Type 2 DM - Controlled E11.9 Insulin: No Blood-Glucose Meter monitoring kit Glucose Meter of Choice - Kit - Dx: Type 2 DM - Controlled E11.9 Checks blood sugar twice daily No family history on file. Social History Tobacco Use Smoking status: Never Smokeless tobacco: Never Substance Use Topics Alcohol use: Yes Comment: occasional Drug use: No PHYSICAL EXAM There were no vitals taken for this visit. General Appearance: well appearing, in no acute distress, alert Pysch: mood and affect broad and appropriate Skin: Skin color, texture, turgor normal for age; Eyes: (more content not included)... [facility] 10-06-2022 History of Present illness Narrative CC: Patient presents with: Recheck: BP follow up HPI Alva Todd is a 77 year old female who presents today for follow up on blood pressure. Per patient she feels extremely fatigued, has muscle aches, nauseated and just does not feel well since being put on so many medications this summer for new onset afib. Has anemia and has positive occult blood for stool since starting the eliquis. Was consulted to Dr. Murphy as per her request but he felt she was fine and did not require re-evaluation since last colonoscopy was 3 years ago for previous positive occult. HTN: Ms. Todd indicates that she is feeling well and denies any symptoms referable to elevated blood pressure. Specifically denies headache, chest pain, palpitations, dyspnea, and peripheral edema. Patient denies any side effects of her medication(s) and is compliant with their regimen. She does check BP's away from this office with average BP's in the 130s-140/70s range. Alva denies regular aerobic exercise. She watches her diet for sodium, low fat and low cholesterol most of the time. 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 DIABETES MELLITUS: Ms. Todd denies excessive thirst or increased frequency of urination, chest pain or dyspnea , numbness, tingling or pain in extremities, new or unusual visual symptoms, low sugar/hypoglycemic reactions, weight loss/gain, and bowel changes/loose stools. Follows a diabetic diet most of the time. She is compliant with medication(s) and is tolerating med(s) without any side effects. She reports checking her glucose on a once a day schedule with sugars in the fasting 120s-130s range. Patient's last HgA1C was Hemoglobin A1C (%) Date Value 08/20/2022 6.7 02/24/2022 7.3 09/11/2021 6.6 03/04/2021 6.7 ) REVIEW OF SYSTEMS General: no fevers, no chills, no night sweats, no recurrent infections, and no significant changes in weight Respiratory: no cough, no wheezing, no shortness of breath, no hemoptysis Cardiovascular: no chest pain, no chest pressure, no palpitations, and no swelling GI: no vomiting, diarrhea, or abdominal pain : No history of dysuria, frequency or incontinence Endocrine: no weight gain, no weight loss, no cold intolerance, no heat intolerance, no polyuria, no polyphagia, and no polydipsia Neurologic: No headache, weakness, numbness, tingling, memory loss, syncope. PAST MEDICAL HISTORY Diagnosis Date Abscess of chest (HCC) Essential hypertension, benign Pure hypercholesterolemia Type II or unspecified type diabetes mellitus without mention of complication, not stated as uncontrolled PAST SURGICAL HISTORY Procedure Laterality Date EYE SURGERY HX ALLERGIES Accupril [Quinapril Hcl], Altace [Ramipril], Amaryl [Glimepiride], Crestor [Rosuvastatin Calcium], Doxycycline, Lipitor [Atorvastatin Calcium], Pravachol [Pravastatin], and Zocor [Simvastatin] MEDICATIONS JARDIANCE 10 mg tablet take 1 tablet by mouth every morning levothyroxine (LEVOXYL) 25 mcg tablet Take 1 tablet daily except take 2 tablets on Thursday. Take on empty stomach. For Thyroid metFORMIN (GLUCOPHAGE) 500 mg tablet Take 1 tablet by mouth twice daily with meals. Ferrous Gluconate 225 mg (27 mg iron) tab Take 1 tablet by mouth once daily. pantoprazole DR (PROTONIX) 40 mg tablet Take 1 tablet by mouth daily before breakfast. Take on empty stomach, 1/2 hr before meal. ezetimibe (ZETIA) 10 mg tablet Take 1 tablet by mouth once daily. Take 3 times per week ELIQUIS 5 mg tab(s) Take 6.25 mg by mouth twice daily. furosemide (LASIX) 20 mg tablet Take 20 mg by mouth once daily. losartan (COZAAR) 100 mg tablet Take 100 mg by mouth once daily. carvedilol (COREG) 6.25 mg tablet Take 2 tablets by mouth twice daily with meals. blood sugar diagnostic (FREESTYLE LITE STRIPS) test strip Test blood sugar(s) 1 times daily. Dx: Type 2 DM - Controlled E11.9 Insulin: No blood sugar diagnostic (BLOOD GLUCOSE TEST) test strip Test blood sugar(s) 2 times daily. Dx: Type 2 DM - Controlled E11.9 Insulin: No Blood-Glucose Meter monitoring kit Glucose Meter of Choice - Kit - Dx: Type 2 DM - Controlled E11.9 Checks blood sugar twice daily No family history on file. Social History Tobacco Use Smoking status: Never Smokeless tobacco: Never Substance Use Topics Alcohol use: Yes Comment: occasional Drug use: No PHYSICAL EXAM There were no vitals taken for this visit. General Appearance: well appearing, in no acute distress, alert Pysch: mood and affect broad and appropriate Skin: Skin color, texture, turgor normal for age; Eyes: conjunctiva pink and moist, no icterus, sclera white, non-injected Neck: Thyroid normal size and symmetric without palpable nodules, No adenopathy Lymph nodes: No cervical lymphadenopathy and No supraclavicular lymphadenopathy Lungs: Lungs clear to auscultation. No wheezing, rhonchi, rales. Heart: RRR without murmur, gallop, or rubs. No ectopy Abdomen: Abdomen soft, non-tender. Bowel sounds normal. No masses, organomegaly Extremities: No deformities, edema, skin discoloration, clubbing or cyanosis. Good capillary refill. Health maintenance reviewed with patient: BP CONTROLLED (<130/80) Never done COLORECTAL CANCER SCREENING due on 09/03/2022 ADVANCE DIRECTIVE DISCUSSION due on 09/21/2022 DEPRESSION ASSESSMENT due on 09/21/2022 INFLUENZA(1) due on 03/20/2023 DTAP,TDAP,TD(1 - Tdap) due on 04/02/2023 COVID-19 VACCINE(3 - Booster for Pfizer series) due on 04/02/2023 DILATED RETINAL EXAM due on 11/25/2022 HBA1C due on 02/17/2023 URINE ALBUMIN:CREATININE RATIO due on 02/24/2023 DIABETIC FOOT EXAM due on 03/03/2023 LDL CHOLESTEROL due on 08/20/2023 ANNUAL PCP TEAM CHRONIC DISEASE VISIT due on 09/08/2023 BONE DENSITY Completed HEPATITIS C SCREENING Completed SHINGRIX VACCINE Completed PNEUMOCOCCAL: 65+ Completed DATA REVIEWED: Most recent labs ASSESSMENT/PLAN: 1. Controlled type 2 diabetes mellitus without complication, without long-term current use of insulin (HCC) - ICD9: 250.00, ICD10: E11.9 (primary diagnosis) Controlled., but with kidney function improved but GFR still at 43, will decrease metformin to once a day and increase jardiance to 25mg once daily - Blood glucose monitoring on a once a day schedule - BP goal of <130/80 - LDL goal of <100 - METFORMIN 500 MG TABLET - follow up in 6 weeks 2. Essential hypertension, benign - ICD9: 401.1, ICD10: I10 - suboptimal control, patient to contact cardiology as she is very frustrated with her symptoms since starting all of these new medications. Discussed with her if she decides she would like to see a different radio machinist we can fax consult or schedule her with [facility] cardiology. - Continue current medication(s) - Recommended regular aerobic exercise. - Recommend home blood pressure monitoring, to bring results in on next visit - Goal of BP <130/80 - follow up in 6 weeks 3. Anemia, unspecified type - ICD9: 285.9, ICD10: D64.9 - on eliquis and positive occult stool. Needs further evaluated. Will consult our general surgery 4. Atrial fibrillation, unspecified type (HCC) - ICD9: 427.31, ICD10: I48.91 - stable but patient feels she is not tolerating her medications. Will continue at this time and patient to discuss further with cardiology. Patient to contact if she would like cardiology consult sent elsewhere or to see a [facility] radio machinist. 5. Other fatigue - ICD9: 780.79, ICD10: R53.83 - medications, versus, hypothyroid, verus anemia, or collaboration of all issues. - increased levothyroxine 2 weeks ago - contacting general surgery for second opinion on positive occult stool and anemia 6. Positive occult stool blood test - ICD9: 792.1, ICD10: R19.5 - will message our general surgery department as I feel with her anemia, symptoms, and positive guaiac she needs further evaluated for possible underlying slow GI bleed 7. Function kidney decreased - ICD9: 593.9, ICD10: N28.9 See # 1, has had improvement, US kidneys unremarkable. Will decrease metformin again and increase jardiance. 8. Hypothyroidism, unspecified type - ICD9: 244.9, ICD10: E03.9 3. Hypothyroidism, unspecified type - ICD9: 244.9, ICD10: E03.9 - Instructed patient on importance of taking on an empty stomach either first thing in the morning or at bedtime. - 2 weeks ago levothyroxine increased, needs rechecked in 4 weeks for further medication management as this may be increasing her symptoms as well. - TSH BLD 9. Medication management - ICD9: V58.69, ICD10: Z79.899 - TSH BLD Prescription instructions reviewed with patient as applicable. Potential red flag symptoms discussed with the patient. Reviewed appropriate action plan to take if red flag symptoms occur. Patient agreeable to treatment plan. Radha Reyes APRN.CNP documented in this encounter [facility] 10-01-2022 Miscellaneous Notes Patient has been identified by name and date of : Yes, Provider Dr. Panda Date 10/01/22 Time 9:50 am Pharmacy phones for refill(s): Requested Prescriptions Pending Prescriptions Disp Refills JARDIANCE 10 mg tablet [Pharmacy Med Name: JARDIANCE 10 MG TABLET] 30 tablet 0 Sig: take 1 tablet by mouth every morning Date of last office visit in primary care: 09/08/22 next apt 10/06/22 Last 2 Encounter Wt Readings: Date: Wt: 09/08/2022 80.3 kg (177 lb) 08/25/2022 76.2 kg (168 lb) Previous labs/tests for medication: Diabetes: Hemoglobin A1C (%) Date Value 08/20/2022 6.7 02/24/2022 7.3 09/11/2021 6.6 03/04/2021 6.7 Thank you. Daly Browning LPN documented in this encounter [facility] 09-26-2022 Miscellaneous Notes Patient returned call and said she did not understand her instructions given. Went over notes below from Radha Reyes EQUIPMENT PROCESSOR with patient again aware to take 2 tablets on Thursday and one tablet daily other days of the week with understanding. Patient notified, verbalized understanding. Jovanni Ward Ma Please let patient know her thyroid level is improving but she needs to increase the dosing. Have her take same dosage of 25mcg 1 tablet daily except take 2 tablets on Thursday. Other labs are similar to previous levels and can be further discussed at her upcoming appointment. Thank you Radha Reyes APRN.LENNY documented in this encounter [facility] 09-24-2022 Note HNO ID: [id number] Author: Jackelin Morelos RDMS Service: ? Author Type: Street Department Dispatcher Type: Progress Notes Filed: 09/24/2022 3:38 PM Note Text: Radiology Service Progress Note PATIENT NAME: Alva Todd DATE OF SERVICE: September 24, 2022 TIME: 3:38 PM PATIENT IDENTITY VERIFICATION COMPLETED USING TWO (2) IDENTIFIERS: Name and Date of confirmed by patient verbally. FALL SCREENING: Has the patient had 2 falls in the last year or 1 fall with injury or currently using an Ambulatory Assistive Device (Walker, Cane, Wheelchair, Crutches, etc.)? No PATIENT GENDER DATA: Female. status: : No status: NO. PATIENT RELEVANT IMPLANT DATA REVIEWED: Not Applicable RADIOLOGY DEPARTMENT: Ultrasound PERIPHERAL IV DATA: Not applicable SIGNED BY: Jackelin Morelos RDMS RVT September 24, 2022 3:38 PM [facility] 09-24-2022 History of Present illness Narrative Radiology Service Progress Note PATIENT NAME: Alva Todd DATE OF SERVICE: September 24, 2022 TIME: 3:38 PM PATIENT IDENTITY VERIFICATION COMPLETED USING TWO (2) IDENTIFIERS: Name and Date of confirmed by patient verbally. FALL SCREENING: Has the patient had 2 falls in the last year or 1 fall with injury or currently using an Ambulatory Assistive Device (Walker, Cane, Wheelchair, Crutches, etc.)? No PATIENT GENDER DATA: Female. status: : No status: NO. PATIENT RELEVANT IMPLANT DATA REVIEWED: Not Applicable RADIOLOGY DEPARTMENT: Ultrasound PERIPHERAL IV DATA: Not applicable SIGNED BY: Jackelin Morelos RDMS [facility] September 24, 2022 3:38 PM documented in this encounter [facility] 09-17-2022 Miscellaneous Notes Metformin 500mg 1 tablet twice daily. New prescription sent. Please call and update [facility]. Thank you Radha Reyes APRN.CNP Reagan Wells phoned asking for clarification on metformin instructions. There are 2 sets of instructions. Please phone Reagan Wells, pharmacy assistant, with clarification on which set of instructions they should use. [phone] documented in this encounter [facility] 09-08-2022 Note HNO ID: [id number] Author: Radha Reyes APRN.SOCK LINING EXAMINER Service: ? Author Type: Nurse Practitioner Type: Progress Notes Filed: 09/08/2022 4:51 PM Note Text: CC: Patient presents with: Follow Up: elevated blood pressure HPI Alva Todd is a 77 year old female who presents today for follow up on lab work and blood pressure. Hypothyroidism: Started on low dose of levothyroxine a few days ago when lab work showed elevated TSH. Has fatigue and intolerance to cold along with increase in her weight. HTN: Ms. Todd indicates that she is feeling well and denies any symptoms referable to elevated blood pressure. Specifically denies headache, chest pain, palpitations, dyspnea, and peripheral edema. Patient denies any side effects of her medication(s) and is compliant with their regimen. She does check BP's away from this office with average BP's in the 120s/70s range. Alva denies regular aerobic exercise. She watches her diet for sodium, low fat and low cholesterol most of the time. Last 3 Encounter BP Readings: Date: BP: 09/08/2022 146/76 08/25/2022 161/72[True BP average[ 04/02/2022 134/88 DIABETES MELLITUS: Ms. Todd denies excessive thirst or increased frequency of urination, chest pain or dyspnea , numbness, tingling or pain in extremities, new or unusual visual symptoms, low sugar/hypoglycemic reactions, weight loss/gain, lightheadedness/dizziness, and bowel changes/loose stools. Follows a diabetic diet most of the time. She is compliant with medication(s) and is tolerating med(s) without any side effects. She reports checking her glucose on a once a day schedule with sugars in the fasting 110s range. Patient's last HgA1C was Hemoglobin A1C (%) Date Value 08/20/2022 6.7 02/24/2022 7.3 09/11/2021 6.6 03/04/2021 6.7 ) Anemia: HGB/HCT stable. Last colonoscopy was over 3 years ago and per patient normal. Fecal occult was positive. Denies any nausea, vomiting, abdominal pain, abnormal bleeding, dark sticky stools or blood in her stools. Has had a decrease in kidney function steadily over the last year with many medication changes including lasix for Heart Failure and medications for atrial fibrillation that she sees [facility] for. Denies any edema, chest pain, palpitations, or shortness of breath at this time. REVIEW OF SYSTEMS General: no fevers, no chills, no night sweats, no recurrent infections, no change in appetite, no change in energy, and no significant changes in weight Respiratory: no cough, no wheezing, no shortness of breath, no hemoptysis Cardiovascular: no chest pain, no chest pressure, no palpitations, and no swelling GI: No nausea, vomiting, or diarrhea Endocrine: no polyuria, no polyphagia, and no polydipsia Neurologic: No headache, weakness, numbness, tingling, dizziness, syncope. PAST MEDICAL HISTORY Diagnosis Date Abscess of chest (HCC) Essential hypertension, benign Pure hypercholesterolemia Type II or unspecified type diabetes mellitus without mention of complication, not stated as uncontrolled PAST SURGICAL HISTORY Procedure Laterality Date EYE SURGERY HX ALLERGIES Accupril [Quinapril Hcl], Altace [Ramipril], Amaryl [Glimepiride], Crestor [Rosuvastatin Calcium], Doxycycline, Lipitor [Atorvastatin Calcium], Pravachol [Pravastatin], and Zocor [Simvastatin] MEDICATIONS levothyroxine (LEVOXYL) 25 mcg tablet Take 1 tablet by mouth once daily. Take on empty stomach. For Thyroid metFORMIN (GLUCOPHAGE) 500 mg tablet Take 2 pills in the morning and 1 pill at night. pantoprazole DR (PROTONIX) 40 mg tablet Take 1 tablet by mouth daily before breakfast. Take on empty stomach, 1/2 hr before meal. ezetimibe (ZETIA) 10 mg tablet Take 1 tablet by mouth once daily. Take 3 times per week ELIQUIS 5 mg tab(s) Take 6.25 mg by mouth twice daily. furosemide (LASIX) 20 mg tablet Take 20 mg by mouth once daily. losartan (COZAAR) 100 mg tablet Take 100 mg by mouth once daily. carvedilol (COREG) 6.25 mg tablet Take 2 tablets by mouth twice daily with meals. blood sugar diagnostic (FREESTYLE LITE STRIPS) test strip Test blood sugar(s) 1 times daily. Dx: Type 2 DM - Controlled E11.9 Insulin: No blood sugar diagnostic (BLOOD GLUCOSE TEST) test strip Test blood sugar(s) 2 times daily. Dx: Type 2 DM - Controlled E11.9 Insulin: No Blood-Glucose Meter monitoring kit Glucose Meter of Choice - Kit - Dx: Type 2 DM - Controlled E11.9 Checks blood sugar twice daily No family history on file. Social History Tobacco Use Smoking status: Never Smokeless tobacco: Never Substance Use Topics Alcohol use: Yes Comment: occasional Drug use: No PHYSICAL EXAM BP 146/76 (BP Site: Left Arm, BP Position: Sitting, BP Cuff Size: Large Adult) Pulse 60 Temp 36.2 ?C (97.2 ?F) Resp 12 Ht 149.9 cm (4' 11 ) Wt 80.3 kg (177 lb) SpO2 96% BMI 35.75 kg/m? General Appearance: well appearing, in no acute distress, alert Pysch: m (more content not included)... [facility] 09-05-2022 Miscellaneous Notes Pt called and is notified of providers message. Pt voices understanding. Ann Schmid RN Please let patient know this has been sent. Thank you Radha Reyes APRN.SOCK LINING EXAMINER Patient requesting her recent levothyroxine 25 mcg be cancelled at [facility] and sent to [facility] in [place] due to insurance coverage issues, if provider agreeable. Please call patient once this has been done. Thank you. documented in this encounter [facility] 09-05-2022 Miscellaneous Notes Pt called and is notified of providers results and instructions. Pt voices understanding. Ann Schmid RN Please let patient know her thyroid level is abnormal and she needs to start a thyroid supplement. She needs to take this first thing in the morning without any other food or medication. Other lab work is abnormal as well and will be further discussed at her upcoming appointment. Thank you Radha Reyes APRN.CNP documented in this encounter [facility] 08-25-2022 Note HNO ID: [id number] Author: Radha Reyes APRN.CNP Service: ? Author Type: Nurse Practitioner Type: Progress Notes Filed: 08/25/2022 12:22 PM Note Text: CC: Patient presents with: Diabetes HPI Alav Todd is a 77 year old female who presents today for diabetes and hypertension follow up but also has concerns of fatigue and always feeling cold. DIABETES MELLITUS: Ms. Todd denies excessive thirst or increased frequency of urination, chest pain or dyspnea , numbness, tingling or pain in extremities, new or unusual visual symptoms, low sugar/hypoglycemic reactions, weight loss/gain, lightheadedness/dizziness, and bowel changes/loose stools. Follows a diabetic diet most of the time. She is compliant with medication(s) and is tolerating med(s) without any side effects. She reports checking her glucose on a once a day schedule with sugars in the fasting 110s-140 range. Patient's last HgA1C was Hemoglobin A1C (%) Date Value 08/20/2022 6.7 02/24/2022 7.3 09/11/2021 6.6 03/04/2021 6.7 ) Last Ophthalmology exam was within the past [address] Rao at [facility]. HTN and HLD: Ms. Todd indicates that she is feeling well and denies any symptoms referable to elevated blood pressure. Specifically denies headache, chest pain, palpitations, dyspnea, exercise intolerance and peripheral edema. Patient denies any side effects of her medication(s) and is compliant with their regimen. She does check BP's away from this office with average BP's in the 140s/70s range. Just saw cardiology a few weeks ago with BP 200/90 with no medication changes. Did give them the same ranges for home blood pressures and her concerns of a lower heart rate. Was instructed to monitor everything at home. Last 3 Encounter BP Readings: Date: BP: 08/25/2022 190/90 04/02/2022 134/88 03/03/2022 140/90 Sudden onset of A-fib this past March and follow regularly with cardiology. Is on carvedilol for rate control and eliquis for DVT prophylaxis Patient reports her heart rate is typically 48-50s with her smart watch. Also has noticed she is more fatigued since March's hospitalization and is always cold. Anemia: Denies any dark sticky stools blood in stools, fever, chills, or history of anemia. Had a colonoscopy in the last year with Dr. Murphy. REVIEW OF SYSTEMS General: no fevers, no chills, no night sweats, no recurrent infections, no change in appetite, and no significant changes in weight Respiratory: no cough, no wheezing, no shortness of breath, no hemoptysis Cardiovascular: no chest pain, no chest pressure, no palpitations, and no swelling GI: No nausea, vomiting, or diarrhea : No history of dysuria, frequency or incontinence Skin: Negative for lesions, rash, and itching Endocrine: no heat intolerance, no polyuria, no polyphagia, and no polydipsia Neurologic: No headache, weakness, numbness, tingling, dizziness, syncope. PAST MEDICAL HISTORY Diagnosis Date Abscess of chest (HCC) Essential hypertension, benign Pure hypercholesterolemia Type II or unspecified type diabetes mellitus without mention of complication, not stated as uncontrolled PAST SURGICAL HISTORY Procedure Laterality Date EYE SURGERY HX ALLERGIES Accupril [Quinapril Hcl], Altace [Ramipril], Amaryl [Glimepiride], Crestor [Rosuvastatin Calcium], Doxycycline, Lipitor [Atorvastatin Calcium], Pravachol [Pravastatin], and Zocor [Simvastatin] MEDICATIONS ELIQUIS 5 mg tab(s) Take 6.25 mg by mouth twice daily. furosemide (LASIX) 20 mg tablet Take 20 mg by mouth once daily. losartan (COZAAR) 100 mg tablet Take 100 mg by mouth once daily. carvedilol (COREG) 6.25 mg tablet Take 2 tablets by mouth twice daily with meals. blood sugar diagnostic (FREESTYLE LITE STRIPS) test strip Test blood sugar(s) 1 times daily. Dx: Type 2 DM - Controlled E11.9 Insulin: No blood sugar diagnostic (BLOOD GLUCOSE TEST) test strip Test blood sugar(s) 2 times daily. Dx: Type 2 DM - Controlled E11.9 Insulin: No Blood-Glucose Meter monitoring kit Glucose Meter of Choice - Kit - Dx: Type 2 DM - Controlled E11.9 Checks blood sugar twice daily metFORMIN (GLUCOPHAGE) 500 mg tablet Take 2 pills in the morning and 1 pill at night. pantoprazole DR (PROTONIX) 40 mg tablet Take 1 tablet by mouth daily before breakfast. Take on empty stomach, 1/2 hr before meal. ezetimibe (ZETIA) 10 mg tablet Take 1 tablet by mouth once daily. Take 3 times per week No family history on file. Social History Tobacco Use Smoking status: Never Smokeless tobacco: Never Substance Use Topics Alcohol use: Yes Comment: occasional Drug use: No PHYSICAL EXAM BP 161/72 Pulse 68 Resp 16 Wt 76.2 kg (168 lb) BMI 33.93 kg/m? General Appearance: well appearing, in no acute distress, alert Skin: Skin color, texture, turgor normal for age; Eyes: conjunctiva pink and moist, no icterus, sclera white, non-injected Neck: Thyroid normal s (more content not included)... [facility] 08-25-2022 Instructions Radha Reyes APRN.CNP - 08/25/2022 11:49 AM EST Get labs drawn in 7-10 days. Check BP daily, same time of day. Keep record of BP readings and HR. Bring to follow up appointment. Bring Home BP monitor to appointment to validate readings. documented in this encounter [facility] 08-25-2022 Nurse Note 161/72 - true BP average 159/62 160/76 158/71 160/74 166/75 Coral Jerez MA documented in this encounter [facility] 08-25-2022 History of Present illness Narrative CC: Patient presents with: Diabetes HPI Alva Todd is a 77 year old female who presents today for diabetes and hypertension follow up but also has concerns of fatigue and always feeling cold. DIABETES MELLITUS: Ms. Todd denies excessive thirst or increased frequency of urination, chest pain or dyspnea , numbness, tingling or pain in extremities, new or unusual visual symptoms, low sugar/hypoglycemic reactions, weight loss/gain, lightheadedness/dizziness, and bowel changes/loose stools. Follows a diabetic diet most of the time. She is compliant with medication(s) and is tolerating med(s) without any side effects. She reports checking her glucose on a once a day schedule with sugars in the fasting 110s-140 range. Patient's last HgA1C was Hemoglobin A1C (%) Date Value 08/20/2022 6.7 02/24/2022 7.3 09/11/2021 6.6 03/04/2021 6.7 ) Last Ophthalmology exam was within the past [address] Rao at [facility]. HTN and HLD: Ms. Todd indicates that she is feeling well and denies any symptoms referable to elevated blood pressure. Specifically denies headache, chest pain, palpitations, dyspnea, exercise intolerance and peripheral edema. Patient denies any side effects of her medication(s) and is compliant with their regimen. She does check BP's away from this office with average BP's in the 140s/70s range. Just saw cardiology a few weeks ago with BP 200/90 with no medication changes. Did give them the same ranges for home blood pressures and her concerns of a lower heart rate. Was instructed to monitor everything at home. Last 3 Encounter BP Readings: Date: BP: 08/25/2022 190/90 04/02/2022 134/88 03/03/2022 140/90 Sudden onset of A-fib this past March and follow regularly with cardiology. Is on carvedilol for rate control and eliquis for DVT prophylaxis Patient reports her heart rate is typically 48-50s with her smart watch. Also has noticed she is more fatigued since March's hospitalization and is always cold. Anemia: Denies any dark sticky stools blood in stools, fever, chills, or history of anemia. Had a colonoscopy in the last year with Dr. Murphy. REVIEW OF SYSTEMS General: no fevers, no chills, no night sweats, no recurrent infections, no change in appetite, and no significant changes in weight Respiratory: no cough, no wheezing, no shortness of breath, no hemoptysis Cardiovascular: no chest pain, no chest pressure, no palpitations, and no swelling GI: No nausea, vomiting, or diarrhea : No history of dysuria, frequency or incontinence Skin: Negative for lesions, rash, and itching Endocrine: no heat intolerance, no polyuria, no polyphagia, and no polydipsia Neurologic: No headache, weakness, numbness, tingling, dizziness, syncope. PAST MEDICAL HISTORY Diagnosis Date Abscess of chest (HCC) Essential hypertension, benign Pure hypercholesterolemia Type II or unspecified type diabetes mellitus without mention of complication, not stated as uncontrolled PAST SURGICAL HISTORY Procedure Laterality Date EYE SURGERY HX ALLERGIES Accupril [Quinapril Hcl], Altace [Ramipril], Amaryl [Glimepiride], Crestor [Rosuvastatin Calcium], Doxycycline, Lipitor [Atorvastatin Calcium], Pravachol [Pravastatin], and Zocor [Simvastatin] MEDICATIONS ELIQUIS 5 mg tab(s) Take 6.25 mg by mouth twice daily. furosemide (LASIX) 20 mg tablet Take 20 mg by mouth once daily. losartan (COZAAR) 100 mg tablet Take 100 mg by mouth once daily. carvedilol (COREG) 6.25 mg tablet Take 2 tablets by mouth twice daily with meals. blood sugar diagnostic (FREESTYLE LITE STRIPS) test strip Test blood sugar(s) 1 times daily. Dx: Type 2 DM - Controlled E11.9 Insulin: No blood sugar diagnostic (BLOOD GLUCOSE TEST) test strip Test blood sugar(s) 2 times daily. Dx: Type 2 DM - Controlled E11.9 Insulin: No Blood-Glucose Meter monitoring kit Glucose Meter of Choice - Kit - Dx: Type 2 DM - Controlled E11.9 Checks blood sugar twice daily metFORMIN (GLUCOPHAGE) 500 mg tablet Take 2 pills in the morning and 1 pill at night. pantoprazole DR (PROTONIX) 40 mg tablet Take 1 tablet by mouth daily before breakfast. Take on empty stomach, 1/2 hr before meal. ezetimibe (ZETIA) 10 mg tablet Take 1 tablet by mouth once daily. Take 3 times per week No family history on file. Social History Tobacco Use Smoking status: Never Smokeless tobacco: Never Substance Use Topics Alcohol use: Yes Comment: occasional Drug use: No PHYSICAL EXAM BP 161/72 Pulse 68 Resp 16 Wt 76.2 kg (168 lb) BMI 33.93 kg/m General Appearance: well appearing, in no acute distress, alert Skin: Skin color, texture, turgor normal for age; Eyes: conjunctiva pink and moist, no icterus, sclera white, non-injected Neck: Thyroid normal size and symmetric without palpable nodules, No adenopathy Lymph nodes: No cervical lymphadenopathy and No supraclavicular lymphadenopathy Lungs: Lungs clear to auscultation. No wheezing, rhonchi, rales. Heart: RRR without murmur, gallop, or rubs. No ectopy Abdomen: Abdomen soft, non-tender. Bowel sounds normal. No masses, organomegaly Extremities: No deformities, edema, skin discoloration, clubbing or cyanosis. Good capillary refill. Health maintenance reviewed with patient: BP CONTROLLED (<130/80) Never done DEPRESSION ASSESSMENT Never done INFLUENZA(1) due on 05/22/2022 DTAP,TDAP,TD(1 - Tdap) due on 04/02/2023 COLORECTAL CANCER SCREENING due on 04/02/2023 COVID-19 VACCINE(3 - Booster for Pfizer series) due on 04/02/2023 DILATED RETINAL EXAM due on 11/25/2022 HBA1C due on 02/17/2023 URINE ALBUMIN:CREATININE RATIO due on 02/24/2023 DIABETIC FOOT EXAM due on 03/03/2023 ANNUAL PCP TEAM CHRONIC DISEASE VISIT due on 04/02/2023 LDL CHOLESTEROL due on 08/20/2023 BONE DENSITY Completed ADVANCE DIRECTIVE DISCUSSION Completed HEPATITIS C SCREENING Completed SHINGRIX VACCINE Completed PNEUMOCOCCAL: 65+ Completed DATA REVIEWED: Most recent labs ASSESSMENT/PLAN: 1. Controlled type 2 diabetes mellitus without complication (HCC) - ICD9: 250.00, ICD10: E11.9 (primary diagnosis) Controlled. - Continue current medications - Blood glucose monitoring on a once a day schedule - BP goal of <130/80 - LDL goal of <100 - METFORMIN 500 MG TABLET 2. Essential hypertension, benign - ICD9: 401.1, ICD10: I10 - poor control - cardiology aware but no follow up with them until December - Continue current medication(s) - Recommended regular aerobic exercise. - Recommend home blood pressure monitoring, to bring results in on next visit - Goal of BP <130/80 - follow up in 2 weeks with Blood pressure and heart rate readings - go to ER for home BP consistently elevated, chest pain, palpitations, shortness of breath, or any other urgent concerns. 3. Atrial fibrillation, unspecified type (HCC) - ICD9: 427.31, ICD10: I48.91 Controlled at this time, dvt prophylaxis on eliquis. 4. Other fatigue - ICD9: 780.79, ICD10: R53.83 - anemia, versus bradycardia, versus other cause - will review HR reading at follow up. May need a zio patch to monitor HR accurately - TSH BLD - BASIC METABOLIC PNL 5. Intolerance to cold - ICD9: 780.99, ICD10: R68.89 As above - TSH BLD 6. Anemia, unspecified type - ICD9: 285.9, ICD10: D64.9 - unsure on cause. Need to get last colonoscopy result from Dr. Murphy. - CBC + DIFF - IRON + TIBC - FERRITIN BLD - VITAMIN B12 BLOOD - BASIC METABOLIC PNL - FECAL OCCULT BLOOD TEST 7. Pure hypercholesterolemia - ICD9: 272.0, ICD10: E78.00 Controlled with patient taking 3 times a week so will continue at this dosage. - EZETIMIBE 10 MG TABLET Prescription instructions reviewed with patient as applicable. Potential red flag symptoms discussed with the patient. Reviewed appropriate action plan to take if red flag symptoms occur. Patient agreeable to treatment plan. Radha Reyes APRN.CNP Medical Decision Making: Problems: Moderate: 2+ stable chronic illnesses, 1+ chronic illnesses with change and New problem with uncertain prognosis Data: Unique test(s) ordered: 3+ Risk: Minimal: Minimal risk from testing/treatment Medical Decision Making Level: 4 - Moderate documented in this encounter [facility] 08-13-2022 Miscellaneous Notes Fasting lab work ordered. Thank you Radha Reyes APRN.CNP Patient calls and states that she has appointment with provider on 08/25. Patient asking if provider wants patient to have labs done prior to appointment. Labs pended if agreeable. Rebekah Terrell RN documented in this encounter [facility] 08-12-2022 Note Patient Outreach (IN [facility]) ALVA TODD ([id number]) 1945 F Date Time Provider Department 08/12/22 ANAYELI PANDA During your visit today, we recorded the following information about you: Allergies As of Date: 08/12/2022 Noted Allergy Reaction ACCUPRIL (QUINAPRIL HCL) 10/24/2005 Comments: cough ALTACE (RAMIPRIL) 10/24/2005 Comments: cough AMARYL (GLIMEPIRIDE) 10/24/2005 Comments: nausea CRESTOR (ROSUVASTATIN CALCIUM) 02/13/2009 Comments: Muscle aches DOXYCYCLINE 04/16/2015 2 - Rash 6 - Diarrhea 11 - Vomiting Comments: Photosensitivity dermatitis doxycycline hyclate LIPITOR (ATORVASTATIN CALCIUM) 10/24/2005 PRAVACHOL (PRAVASTATIN) 01/07/2010 Comments: muscle aches ZOCOR (SIMVASTATIN) 10/24/2005 Date Reviewed: 04/02/2022 Reviewed by: Radha Reyes APRN.SOCK LINING EXAMINER - Fully Assessed Visit Diagnosis:Diabetes mellitus type 2, controlled, without complications (HCC) [E11.9] Order(s):HGB A1C [TAGPC9X] Order #: [id number] FUTURE CBC [SQCBC] Order #: [id number] FUTURE SCHEDULE LAB TESTING [[id number]] Order #: [id number] FUTURE Prescriptions as of 08/15/2022 - metFORMIN (GLUCOPHAGE) 500 mg tablet Take 2 pills in the morning and 1 pill at night. - ELIQUIS 5 mg tab(s) Take 6.25 mg by mouth twice daily. - furosemide (LASIX) 20 mg tablet Take 20 mg by mouth once daily. - losartan (COZAAR) 100 mg tablet Take 100 mg by mouth once daily. - carvedilol (COREG) 6.25 mg tablet Take 2 tablets by mouth twice daily with meals. - pantoprazole DR (PROTONIX) 40 mg tablet Take 1 tablet by mouth daily before breakfast. Take on empty stomach, 1/2 hr before meal. - ezetimibe (ZETIA) 10 mg tablet Take 1 tablet by mouth once daily. - blood sugar diagnostic (FREESTYLE LITE STRIPS) test strip Test blood sugar(s) 1 times daily. Dx: Type 2 DM - Controlled E11.9 Insulin: No - blood sugar diagnostic (BLOOD GLUCOSE TEST) test strip Test blood sugar(s) 2 times daily. 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 She has enough until it arrives from the mail order. ANNALEE: 04/02/2022 Last refill: 03/11/2021 QTY: 270 Refills: 3 Patient's request for medication is as follows: Pending Prescriptions Disp Refills METFORMIN 500 MG TABLET 270 tablet 3 Sig: Take 2 pills in the morning and 1 pill at night. TREY: No Please approve the above prescription(s) to electronically send to pharmacy. Jovanni Ward Ma documented in this encounter [facility] 04-03-2022 Miscellaneous Notes Patient notified. ----- Message from Anayeli Panda MD sent at 04/03/2022 3:02 PM EDT ----- Calcium is normal and so is the Pth this time Regards, Anayeli Panda MD documented in this encounter [facility] 04-02-2022 History of Present illness Narrative CC: Patient presents with: Recheck: [facility] follow up, afib HPI Alva Todd is a 76 year old female who presents today for hospital follow-up. Facility: [facility] Date of visit: 03/03-03/06 Reason for visit: Was sent by Dr. Panda to ER. Was new onset A-fib with RVR in office. Hospital course: Echo and Heart cath EF of 25%. Was on Cardizem and metoprolol in the hospital Diagnosis: New onset A-fib with RVR Discharge: still in A-fib, followed up with [facility]ology since discharge, had carvedilol increased at that time. Scheduled for Cardioversion on 04/14. Current symptoms: Denies any chest pain, shortness of breath, edema, or palpitations. HTN: Ms. Todd indicates that she is feeling well and denies any symptoms referable to elevated blood pressure. Specifically denies headache, chest pain, palpitations, dyspnea and peripheral edema. Patient denies any side effects of her medication(s) and is compliant with their regimen. Last 3 Encounter BP Readings: Date: BP: 04/02/2022 158/102 03/03/2022 140/90 09/18/2021 150/76 Home Bps 110s/-120s/70s-80s Heart rate in 90s. BP in office and Heart rate were both elevated at beginning of visit, lowered by end of visit. DIABETES MELLITUS: Ms. Todd denies excessive thirst or increased frequency of urination, chest pain or dyspnea , numbness, tingling or pain in extremities, new or unusual visual symptoms, low sugar/hypoglycemic reactions, weight loss/gain, lightheadedness/dizziness and bowel changes/loose stools. Follows a diabetic diet most of the time. She is compliant with medication(s) and is tolerating med(s) without any side effects. She reports checking her glucose on a once a day schedule with sugars in the fasting 110s range. Patient's last HgA1C was Hemoglobin A1C (%) Date Value 02/24/2022 7.3 09/11/2021 6.6 03/04/2021 6.7 ) Last Ophthalmology exam was within the past [address] Rao with [facility]. REVIEW OF SYSTEMS General: no fevers, no chills, no night sweats, no recurrent infections, no change in appetite, no change in energy and no significant changes in weight Respiratory: no cough, no wheezing, no shortness of breath, no hemoptysis Cardiovascular: no chest pain, no chest pressure, no palpitations and no swelling GI: No nausea, vomiting, or diarrhea Neurologic: No headache, weakness, numbness, tingling, dizziness, syncope. PAST MEDICAL HISTORY Diagnosis Date Abscess of chest (HCC) Essential hypertension, benign Pure hypercholesterolemia Type II or unspecified type diabetes mellitus without mention of complication, not stated as uncontrolled PAST SURGICAL HISTORY Procedure Laterality Date EYE SURGERY HX ALLERGIES Accupril [Quinapril Hcl], Altace [Ramipril], Amaryl [Glimepiride], Crestor [Rosuvastatin Calcium], Doxycycline, Lipitor [Atorvastatin Calcium], Pravachol [Pravastatin], and Zocor [Simvastatin] MEDICATIONS carvedilol (COREG) 6.25 mg tablet Take 6.25 mg by mouth twice daily with meals. furosemide (LASIX) 20 mg tablet Take 20 mg by mouth once daily. losartan (COZAAR) 100 mg tablet Take 100 mg by mouth once daily. pantoprazole DR (PROTONIX) 40 mg tablet Take 1 tablet by mouth daily before breakfast. Take on empty stomach, 1/2 hr before meal. ezetimibe (ZETIA) 10 mg tablet Take 1 tablet by mouth once daily. metFORMIN (GLUCOPHAGE) 500 mg tablet Take 2 pills in the morning and 1 pill at night. ELIQUIS 5 mg tab(s) Take 6.25 mg by mouth twice daily. clonazePAM (KLONOPIN) 0.5 mg tablet Take 1 tablet by mouth twice daily as needed for up to 7 days. blood sugar diagnostic (FREESTYLE LITE STRIPS) test strip Test blood sugar(s) 1 times daily. Dx: Type 2 DM - Controlled E11.9 Insulin: No Valsartan-hydroCHLOROthiazide 320-12.5 mg per tablet Take 1 tablet by mouth once daily. Cholecalciferol, Vitamin D3, 25 mcg (1,000 unit) cap Take 1 capsule by mouth once daily. famotidine (PEPCID) 20 mg tablet Take 1 tablet by mouth at bedtime as needed. blood sugar diagnostic (BLOOD GLUCOSE TEST) test strip Test blood sugar(s) 2 times daily. Dx: Type 2 DM - Controlled E11.9 Insulin: No vitamin b complex (B COMPLEX-VITAMIN B12) tab Take 1 tablet by mouth once daily. Blood-Glucose Meter monitoring kit Glucose Meter of Choice - Kit - Dx: Type 2 DM - Controlled E11.9 Checks blood sugar twice daily aspirin(ECOTRIN LOW STRENGTH 81 MG TAB) Take one(1) tablet daily. No family history on file. Social History Tobacco Use Smoking status: Never Smoker Smokeless tobacco: Never Used Substance Use Topics Alcohol use: Yes Comment: occasional Drug use: No PHYSICAL EXAM BP 158/102 Pulse 120 Resp 16 Wt 79.4 kg (175 lb) BMI 35.35 kg/m General Appearance: well appearing, in no acute distress, alert Skin: Skin color, texture, turgor normal for age; Eyes: conjunctiva pink and moist, no icterus, sclera white, non-injected Neck: Thyroid normal size and symmetric without palpable nodules, No adenopathy Lymph nodes: No cervical lymphadenopathy and No supraclavicular lymphadenopathy Lungs: Lungs clear to auscultation. No wheezing, rhonchi, rales. Heart: Apical irregular in the 90s without murmur, gallop, or rubs. Extremities: No deformities, edema, skin discoloration, clubbing or cyanosis. Good capillary refill. BP CONTROLLED (<130/80) Never done DTAP,TDAP,TD(1 - Tdap) Never done MAMMOGRAM due on 03/02/2020 COVID-19 VACCINE(3 - Booster for Pfizer series) due on 05/27/2021 COLORECTAL CANCER SCREENING due on 09/08/2021 INFLUENZA(1) due on 05/22/2022 HBA1C due on 08/26/2022 DILATED RETINAL EXAM due on 11/25/2022 URINE ALBUMIN:CREATININE RATIO due on 02/24/2023 LDL CHOLESTEROL due on 02/24/2023 DIABETIC FOOT EXAM due on 03/03/2023 ANNUAL PCP TEAM CHRONIC DISEASE VISIT due on 03/03/2023 DEPRESSION SCREENING due on 03/03/2023 BONE DENSITY Completed ADVANCE DIRECTIVE DISCUSSION Completed HEPATITIS C SCREENING Completed SHINGRIX VACCINE Completed PNEUMOCOCCAL: 65+ Completed DATA REVIEWED: Outside chart from [facility] reviewed. ASSESSMENT/PLAN: 1. History of recent hospitalization - ICD9: V13.9, ICD10: Z92.89 (primary diagnosis) Stable at this time 2. New onset a-fib (HCC) - ICD9: 427.31, ICD10: I48.91 - per cardiology note patient was in A-fib at visit, apical still irregular. Was tachycardic at start of visit, but lowered to 90s at end of visit and patient has been getting 90s at home - continue meds as prescribed by cardiology and plan for cardioversion - go to ER for palpitations, elevated sustained heart rate, shortness of breath, chest pain, or any other urgent concerns. - follow up in 6 weeks post cardioversion 3. Controlled type 2 diabetes mellitus without complication, unspecified whether group home insulin use (HCC) - ICD9: 250.00, ICD10: E11.9 Controlled. With readings at home - Continue current medications - Blood glucose monitoring on a once a day schedule - BP goal of <130/80 - LDL goal of <100 4. Essential hypertension, benign - ICD9: 401.1, ICD10: I10 - good control at home, elevated initially in visit but lowered at the end. - Continue current medication(s) - Encouraged dietary sodium restriction/DASH diet - Recommended regular aerobic exercise. - Recommend home blood pressure monitoring, to bring results in on next visit - Goal of BP <130/80 Prescription instructions reviewed with patient as applicable. Potential red flag symptoms discussed with the patient. Reviewed appropriate action plan to take if red flag symptoms occur. Patient agreeable to treatment plan. Radha Reyes APRN.CNP documented in this encounter [facility] 03-03-2022 History of Present illness Narrative Reason for Visit Patient presents with: Established Patient: 3 month follow up-DM Alva Todd is a 76 year old female who presents here today for Above Complaints.. Health Maintenance BP CONTROLLED (<130/80) DTAP,TDAP,TD(1 - Tdap) DIABETIC FOOT EXAM MAMMOGRAM COVID-19 VACCINE(3 - Booster for Pfizer series) COLORECTAL CANCER SCREENING ADVANCE DIRECTIVE DISCUSSION HPI Patient notes that her bp is very good at home, the last few days her log was 129/78, 136/72, 106/71, 111/78, 112/74, the last one was today. She is also extremely tachycardic today. She has white coat syndrome, her son and grand daughter too have it. Diabetes Mellitus: hba1c is 7.3, she thinks that was from the winter eating, seems reluctant to change her medications any. Cont the metformin, at the same dose. He is checking her sugars recently, and this morning it was around 119. Patient wrote it down and the highest he had was 156. Calcium is a little high, Her pth and the vit d was normal. She is taking tums on and off. Gerd: patient has reflux occasionally. Hyperlipidemia: she has been on the zetia 3 times a week and there has been remarkable change to her lipid her ld is down to 83 from 129 and her remaining at 68. She did make some dietary changes including stopping the pop which may have had more transfats. She is eating less chicken and and beef. She is trying to loose some weight Taking the zetia daily gave her neck stiffness but now when she stopped it is better than before. Panic attacks: She hates to be in a car going on a vacation, where she has to fly and drive. Patient is a nervous wreck in a car, she drives to work and on [place]. Cars are too fast with too many trucks etc. No problem-specific Assessment & Plan notes found for this encounter. PAST MEDICAL HISTORY Diagnosis Date Abscess of chest (HCC) Essential hypertension, benign Pure hypercholesterolemia Type II or unspecified type diabetes mellitus without mention of complication, not stated as uncontrolled PAST SURGICAL HISTORY Procedure Laterality Date EYE SURGERY HX No family history on file. Social History Tobacco Use Smoking status: Never Smoker Smokeless tobacco: Never Used Substance Use Topics Alcohol use: Yes Comment: occasional Drug use: No Past medical history, appointments, medications, allergies reviewed. Pertinent Lab/Diagnostic Studies are reviewed and discussed today Current Outpatient Medications: blood sugar diagnostic (FREESTYLE LITE STRIPS) test strip Valsartan-hydroCHLOROthiazide 320-12.5 mg per tablet pantoprazole DR (PROTONIX) 40 mg tablet metFORMIN (GLUCOPHAGE) 500 mg tablet Cholecalciferol, Vitamin D3, 25 mcg (1,000 unit) cap famotidine (PEPCID) 20 mg tablet ezetimibe (ZETIA) 10 mg tablet blood sugar diagnostic (BLOOD GLUCOSE TEST) test strip vitamin b complex (B COMPLEX-VITAMIN B12) tab Blood-Glucose Meter monitoring kit aspirin(ECOTRIN LOW STRENGTH 81 MG TAB) Review of Systems CONSTITUTIONAL: No fevers, chills night sweats, unintended weight loss CARDIOVASCULAR: No chest pain, dyspnea, palpitations, orthopnea, PND, ankle edema. PULM: No dyspnea, unexplained cough. GI: No dysphagia/odynophagia, problematic reflux, constipation, diarrhea, changes in stool habits, hematochezia, melena. : No new urinary complaints, including dysuria, gross hematuria or pyuria. NEURO: No new balance problems, peripheral weakness/paresthesias or numbness of concern. Physical Exam BP 140/90 (BP Site: Left Arm, BP Position: Sitting, BP Cuff Size: Large Adult) Pulse (!) 140 Temp 36.3 C (97.3 F) Resp 12 Ht 149.9 cm (4' 11 ) Wt 77.1 kg (170 lb) SpO2 98% BMI 34.34 kg/m General appearance: Well appearing, alert, in no acute distress, well nourished. Skin: Skin color, texture, turgor normal, no suspicious rashes or lesions Head: Normocephalic, no masses, lesions, tenderness or abnormalities Eyes: Anicteric sclera. Pupils are equally round and reactive to light. Extraocular movements are intact. Lungs: Lungs clear to auscultation. No wheezing, rhonchi, rales Heart: RRR without murmur, gallop, or rubs. Feet: Shoes and socks removed, normal distal pulses, sensitive to 10 gm monofilament and nails notable for Crumbly, Deformed, Hypertrophic or Yellowish guru right big toes, the nail is jutting onto the second toe and may cause a pressure ulcer. ASSESSMENT/PLAN: 1. Hypercalcemia - ICD9: 275.42, ICD10: E83.52 (primary diagnosis) - COMP METABOLIC PANEL - PTH INTACT BLD 2. Pure hypercholesterolemia - ICD9: 272.0, ICD10: E78.00 - EZETIMIBE 10 MG TABLET 3. Essential hypertension, benign - ICD9: 401.1, ICD10: I10 - good control - Recommended regular aerobic exercise. - Recommend home blood pressure monitoring, to bring results in on next visit - Goal of BP <130/80 4. Vitamin D deficiency - ICD9: 268.9, ICD10: E55.9 - VITAMIN D 25 HYDROXY 5. Tachycardia - ICD9: 785.0, ICD10: R00.0 When ekg was done she is found to be in afib with rvr of 140 She needs to go to the ER, to get her heart rate to stop and also get put with the radio machinist as she wants to go for vacation. We discussed the need to be on a blood thinner too. - ECG COMPLETE 6. Onychomycosis - ICD9: 110.1, ICD10: B35.1 7. Controlled type 2 diabetes mellitus without complication, unspecified whether group home insulin use (HCC) - ICD9: 250.00, ICD10: E11.9 worsening control - Continue current medications Anayeli Panda MD documented in this encounter [facility] documented as of this encounter (statuses as of 02/21/2022) [facility]03-[facility]2018 History of Past illness Narrative* Problem Noted Date Resolved Date Morbid (severe) obesity due to excess calories 0 12/10/2017 09/16/2021 Vitreous hemorrhage of right eye 11/01/2013 09/16/2021 Overview: right eye -- s/p bimedial recession 06/03/2013 s/p PPV, EL OD 07/19/2013 documented as of this encounter (statuses as of 03/03/2022) [facility] History of Past illness Narrative* Problem Noted Date Resolved Date Morbid (severe) obesity due to excess calories 0 12/10/2017 09/16/2021 Vitreous hemorrhage of right eye 11/01/2013 09/16/2021 Overview: right eye -- s/p bimedial recession 06/03/2013 s/p PPV, EL OD 07/19/2013 documented as of this encounter (statuses as of 03/24/2022) [facility] History of Past illness Narrative* Problem Noted Date Resolved Date Morbid (severe) obesity due to excess calories 0 12/10/2017 09/16/2021 Vitreous hemorrhage of right eye 11/01/2013 09/16/2021 Overview: right eye -- s/p bimedial recession 06/03/2013 s/p PPV, EL OD 07/19/2013 documented as of this encounter (statuses as of 04/02/2022) [facility] History of Past illness Narrative* Problem Noted Date Resolved Date Morbid (severe) obesity due to excess calories 0 12/10/2017 09/16/2021 Vitreous hemorrhage of right eye 11/01/2013 09/16/2021 Overview: right eye -- s/p bimedial recession 06/03/2013 s/p PPV, EL OD 07/19/2013 documented as of this encounter (statuses as of 04/03/2022) [facility] History of Past illness Narrative* Problem Noted Date Resolved Date Morbid (severe) obesity due to excess calories 0 12/10/2017 09/16/2021 Vitreous hemorrhage of right eye 11/01/2013 09/16/2021 Overview: right eye -- s/p bimedial recession 06/03/2013 s/p PPV, EL OD 07/19/2013 documented as of this encounter (statuses as of 04/09/2022) [facility] History of Past illness Narrative* Problem Noted Date Resolved Date Morbid (severe) obesity due to excess calories 0 12/10/2017 09/16/2021 Vitreous hemorrhage of right eye 11/01/2013 09/16/2021 Overview: right eye -- s/p bimedial recession 06/03/2013 s/p PPV, EL OD 07/19/2013 documented as of this encounter (statuses as of 08/13/2022) [facility] History of Past illness Narrative* Problem Noted Date Resolved Date Morbid (severe) obesity due to excess calories 0 12/10/2017 09/16/2021 Vitreous hemorrhage of right eye 11/01/2013 09/16/2021 Overview: right eye -- s/p bimedial recession 06/03/2013 s/p PPV, EL OD 07/19/2013 documented as of this encounter (statuses as of 08/25/2022) [facility] History of Past illness Narrative* Problem Noted Date Resolved Date Morbid (severe) obesity due to excess calories 0 12/10/2017 09/16/2021 Vitreous hemorrhage of right eye 11/01/2013 09/16/2021 Overview: right eye -- s/p bimedial recession 06/03/2013 s/p PPV, EL OD 07/19/2013 documented as of this encounter (statuses as of 09/05/2022) [facility] History of Past illness Narrative* Problem Noted Date Resolved Date Morbid (severe) obesity due to excess calories 0 12/10/2017 09/16/2021 Vitreous hemorrhage of right eye 11/01/2013 09/16/2021 Overview: right eye -- s/p bimedial recession 06/03/2013 s/p PPV, EL OD 07/19/2013 documented as of this encounter (statuses as of 09/05/2022) [facility] History of Past illness Narrative* Problem Noted Date Resolved Date Morbid (severe) obesity due to excess calories 0 12/10/2017 09/16/2021 Vitreous hemorrhage of right eye 11/01/2013 09/16/2021 Overview: right eye -- s/p bimedial recession 06/03/2013 s/p PPV, EL OD 07/19/2013 documented as of this encounter (statuses as of 09/24/2022) [facility] History of Past illness Narrative* Problem Noted Date Resolved Date Morbid (severe) obesity due to excess calories 0 12/10/2017 09/16/2021 Vitreous hemorrhage of right eye 11/01/2013 09/16/2021 Overview: right eye -- s/p bimedial recession 06/03/2013 s/p PPV, EL OD 07/19/2013 documented as of this encounter (statuses as of 09/26/2022) [facility] History of Past illness Narrative* Problem Noted Date Resolved Date Morbid (severe) obesity due to excess calories 0 12/10/2017 09/16/2021 Vitreous hemorrhage of right eye 11/01/2013 09/16/2021 Overview: right eye -- s/p bimedial recession 06/03/2013 s/p PPV, EL OD 07/19/2013 documented as of this encounter (statuses as of 10/02/2022) [facility] History of Past illness Narrative* Problem Noted Date Resolved Date Morbid (severe) obesity due to excess calories 0 12/10/2017 09/16/2021 Vitreous hemorrhage of right eye 11/01/2013 09/16/2021 Overview: right eye -- s/p bimedial recession 06/03/2013 s/p PPV, EL OD 07/19/2013 documented as of this encounter (statuses as of 10/07/2022) [facility] History of Past illness Narrative* Problem Noted Date Resolved Date Morbid (severe) obesity due to excess calories 0 12/10/2017 09/16/2021 Vitreous hemorrhage of right eye 11/01/2013 09/16/2021 Overview: right eye -- s/p bimedial recession 06/03/2013 s/p PPV, EL OD 07/19/2013 documented as of this encounter (statuses as of 10/08/2022) [facility] History of Past illness Narrative* Problem Noted Date Resolved Date Morbid (severe) obesity due to excess calories 0 12/10/2017 09/16/2021 Vitreous hemorrhage of right eye 11/01/2013 09/16/2021 Overview: right eye -- s/p bimedial recession 06/03/2013 s/p PPV, EL OD 07/19/2013 documented as of this encounter (statuses as of 10/15/2022) [facility] History of Past illness Narrative* Problem Noted Date Resolved Date Morbid (severe) obesity due to excess calories 0 12/10/2017 09/16/2021 Vitreous hemorrhage of right eye 11/01/2013 09/16/2021 Overview: right eye -- s/p bimedial recession 06/03/2013 s/p PPV, EL OD 07/19/2013 documented as of this encounter (statuses as of 10/24/2022) [facility] History of Past illness Narrative* Problem Noted Date Resolved Date Morbid (severe) obesity due to excess calories 0 12/10/2017 09/16/2021 Vitreous hemorrhage of right eye 11/01/2013 09/16/2021 Overview: right eye -- s/p bimedial recession 06/03/2013 s/p PPV, EL OD 07/19/2013 documented as of this encounter (statuses as of 11/05/2022) [facility] History of Past illness Narrative* Problem Noted Date Resolved Date Morbid (severe) obesity due to excess calories 0 12/10/2017 09/16/2021 Vitreous hemorrhage of right eye 11/01/2013 09/16/2021 Overview: right eye -- s/p bimedial recession 06/03/2013 s/p PPV, EL OD 07/19/2013 documented as of this encounter (statuses as of 11/06/2022) [facility] History of Past illness Narrative* Problem Noted Date Resolved Date Morbid (severe) obesity due to excess calories 0 12/10/2017 09/16/2021 Vitreous hemorrhage of right eye 11/01/2013 09/16/2021 Overview: right eye -- s/p bimedial recession 06/03/2013 s/p PPV, EL OD 07/19/2013 documented as of this encounter (statuses as of 11/06/2022) [facility] History of Past illness Narrative* Problem Noted Date Resolved Date Morbid (severe) obesity due to excess calories 0 12/10/2017 09/16/2021 Vitreous hemorrhage of right eye 11/01/2013 09/16/2021 Overview: right eye -- s/p bimedial recession 06/03/2013 s/p PPV, EL OD 07/19/2013 documented as of this encounter (statuses as of 11/14/2022) [facility] History of Past illness Narrative* Problem Noted Date Resolved Date Morbid (severe) obesity due to excess calories 0 12/10/2017 09/16/2021 Vitreous hemorrhage of right eye 11/01/2013 09/16/2021 Overview: right eye -- s/p bimedial recession 06/03/2013 s/p PPV, EL OD 07/19/2013 documented as of this encounter (statuses as of 11/14/2022) [facility] History of Past illness Narrative* Problem Noted Date Resolved Date Morbid (severe) obesity due to excess calories 0 12/10/2017 09/16/2021 Vitreous hemorrhage of right eye 11/01/2013 09/16/2021 Overview: right eye -- s/p bimedial recession 06/03/2013 s/p PPV, EL OD 07/19/2013 documented as of this encounter (statuses as of 12/08/2022) [facility] History of Past illness Narrative* Problem Noted Date Resolved Date Morbid (severe) obesity due to excess calories 0 12/10/2017 09/16/2021 Vitreous hemorrhage of right eye 11/01/2013 09/16/2021 Overview: right eye -- s/p bimedial recession 06/03/2013 s/p PPV, EL OD 07/19/2013 documented as of this encounter (statuses as of 01/13/2023) [facility] History of Past illness Narrative* Problem Noted Date Resolved Date Morbid (severe) obesity due to excess calories 0 12/10/2017 09/16/2021 Vitreous hemorrhage of right eye 11/01/2013 09/16/2021 Overview: right eye -- s/p bimedial recession 06/03/2013 s/p PPV, EL OD 07/19/2013 documented as of this encounter (statuses as of 01/23/2023) [facility] History of Past illness Narrative* Problem Noted Date Resolved Date Morbid (severe) obesity due to excess calories 0 12/10/2017 09/16/2021 Vitreous hemorrhage of right eye 11/01/2013 09/16/2021 Overview: right eye -- s/p bimedial recession 06/03/2013 s/p PPV, EL OD 07/19/2013 documented as of this encounter (statuses as of 02/03/2023) [facility] History of Past illness Narrative* Problem Noted Date Resolved Date Morbid (severe) obesity due to excess calories 0 12/10/2017 09/16/2021 Vitreous hemorrhage of right eye 11/01/2013 09/16/2021 Overview: right eye -- s/p bimedial recession 06/03/2013 s/p PPV, EL OD 07/19/2013 documented as of this encounter (statuses as of 03/13/2023) [facility] History of Past illness Narrative* Problem Noted Date Diagnosed Date Resolved Date Morbid (severe) obesity due to excess calories 12/10/2017 09/16/2021 Vitreous hemorrhage of right eye 11/01/2013 09/16/2021 Overview: right eye -- s/p bimedial recession 06/03/2013 s/p PPV, EL OD 07/19/2013 documented as of this encounter (statuses as of 04/02/2023) [facility] History of Past illness Narrative* Problem Noted Date Diagnosed Date Resolved Date Morbid (severe) obesity due to excess calories 12/10/2017 09/16/2021 Vitreous hemorrhage of right eye 11/01/2013 09/16/2021 Overview: right eye -- s/p bimedial recession 06/03/2013 s/p PPV, EL OD 07/19/2013 documented as of this encounter (statuses as of 05/02/2023) [facility] History of Past illness Narrative* Problem Noted Date Diagnosed Date Resolved Date Morbid (severe) obesity due to excess calories 12/10/2017 09/16/2021 Vitreous hemorrhage of right eye 11/01/2013 09/16/2021 Overview: right eye -- s/p bimedial recession 06/03/2013 s/p PPV, EL OD 07/19/2013 documented as of this encounter (statuses as of 05/21/2023) [facility] History of Past illness Narrative* Problem Noted Date Diagnosed Date Resolved Date Morbid (severe) obesity due to excess calories 12/10/2017 09/16/2021 Vitreous hemorrhage of right eye 11/01/2013 09/16/2021 Overview: right eye -- s/p bimedial recession 06/03/2013 s/p PPV, EL OD 07/19/2013 documented as of this encounter (statuses as of 06/04/2023) [facility] History of Past illness Narrative* Problem Noted Date Diagnosed Date Resolved Date Morbid (severe) obesity due to excess calories 12/10/2017 09/16/2021 Vitreous hemorrhage of right eye 11/01/2013 09/16/2021 Overview: right eye -- s/p bimedial recession 06/03/2013 s/p PPV, EL OD 07/19/2013 documented as of this encounter (statuses as of 07/26/2023) [facility] note* Diagnosis Diabetes mellitus type 2, controlled, without complications (HCC) Type II or unspecified type diabetes mellitus without mention of complication, not stated as uncontrolled Pure hypercholesterolemia documented in this encounter [facility] note* Diagnosis Hypercalcemia- Primary Pure hypercholesterolemia Essential hypertension, benign Vitamin D deficiency Unspecified vitamin D deficiency Tachycardia Tachycardia, unspecified Onychomycosis Dermatophytosis of nail Controlled type 2 diabetes mellitus without complication, unspecified whether group home insulin use (HCC) Anxiety Anxiety state, unspecified New onset a-fib (HCC) Atrial fibrillation documented in this encounter [facility] note* Diagnosis Encounter for screening mammogram for breast cancer documented in this encounter [facility] note* Diagnosis History of recent hospitalization- Primary Personal history of unspecified disease New onset a-fib (HCC) Atrial fibrillation Controlled type 2 diabetes mellitus without complication, unspecified whether keno terminal operator insulin use (HCC) Essential hypertension, benign documented in this encounter [facility] note* Diagnosis Controlled type 2 diabetes mellitus without complication (HCC) Type II or unspecified type diabetes mellitus without mention of complication, not stated as uncontrolled documented in this encounter [facility] note* Diagnosis Hypercalcemia- Primary Pure hypercholesterolemia Controlled type 2 diabetes mellitus without complication, unspecified whether keno terminal operator insulin use (HCC) Elevated liver enzymes Other nonspecific abnormal serum enzyme levels Essential hypertension, benign documented in this encounter [facility] note* Diagnosis Controlled type 2 diabetes mellitus without complication, without long-term current use of insulin (HCC)- Primary Essential hypertension, benign Atrial fibrillation, unspecified type (HCC) Other fatigue Intolerance to cold Other general symptoms Anemia, unspecified type Pure hypercholesterolemia documented in this encounter [facility] note* Diagnosis Controlled type 2 diabetes mellitus without complication, without long-term current use of insulin (HCC) documented in this encounter [facility] note* Diagnosis Controlled type 2 diabetes mellitus without complication, without long-term current use of insulin (HCC)- Primary Essential hypertension, benign Anemia, unspecified type Atrial fibrillation, unspecified type (HCC) Other fatigue Positive occult stool blood test Nonspecific abnormal finding in stool contents Function kidney decreased Unspecified disorder of kidney and ureter Hypothyroidism, unspecified type Medication management Encounter for long-term (current) use of other medications Chronic kidney disease, stage 3a (HCC) Type 2 diabetes mellitus with diabetic chronic kidney disease (HCC) Type II or unspecified type diabetes mellitus with renal manifestations, not stated as uncontrolled documented in this encounter [facility] note* Diagnosis Anemia, unspecified type- Primary Positive occult stool blood test Nonspecific abnormal finding in stool contents documented in this encounter [facility] note* Diagnosis Medication management Encounter for long-term (current) use of other medications documented in this encounter [facility] note* Diagnosis Controlled type 2 diabetes mellitus without complication, without long-term current use of insulin (HCC)- Primary Essential hypertension, benign Function kidney decreased Unspecified disorder of kidney and ureter Hypothyroidism, unspecified type Medication management Encounter for long-term (current) use of other medications documented in this encounter [facility] note* Diagnosis Controlled type 2 diabetes mellitus without complication, without long-term current use of insulin (HCC)- Primary Hypothyroidism, unspecified type Medication management Encounter for long-term (current) use of other medications Chronic kidney disease, stage 3a (HCC) documented in this encounter [facility] note* Diagnosis Hypothyroidism, unspecified type- Primary documented in this encounter [facility] note* Diagnosis Diabetes mellitus type 2, controlled, without complications (HCC) Type II or unspecified type diabetes mellitus without mention of complication, not stated as uncontrolled documented in this encounter [facility] note* Diagnosis Type 2 diabetes mellitus with chronic kidney disease, with long-term current use of insulin, unspecified CKD stage (HCC)- Primary Essential hypertension, benign Hypothyroidism, unspecified type Pure hypercholesterolemia documented in this encounter [facility] note* Diagnosis Essential hypertension, benign- Primary Atrial fibrillation, unspecified type (HCC) Hypothyroidism, unspecified type Controlled type 2 diabetes mellitus without complication, without long-term current use of insulin (HCC) Pure hypercholesterolemia documented in this encounter [facility] note* Diagnosis Function kidney decreased Unspecified disorder of kidney and ureter documented in this encounter [facility] for referral (narrative)* Outpatient Procedure (Routine) - Authorized Specialty Diagnoses / Procedures Referred By Radhaac t Referred To [facility] Diagnoses Tachycardia Procedures ECG COMPLETE ECG ROUTINE ECG W/LEAST 12 LDS W/I&R Anayeli Panda MD [address] [place] [address] [facility] [place] [address] [place] [address] Referral ID Status Reason Start Date Expiration Date Visits Requested Visits Authorized [id number] Authorized Auto-Generat ed Referral 03/03/2022 03/03/2023 1 1 [facility] for referral (narrative)* Diagnostic Procedure Only (Routine) - Pending Review Specialty Diagnoses / Procedures Referred By Jimbo ospina Referred To Contact [facility] Diagnoses Encounter for screening mammogram for breast cancer Procedures DWAYNE SCREENING SCREENING MAMMOGRAPHY BI 2-VIEW BREAST INC CAD Anayeli Panda MD [address] [place] [address] [facility] [address] [place] [address] Referral ID Status Reason Start Date Expiration Date Visits Requested Visits Authorized [id number] Pending Review Auto-Generat ed Referral 03/19/2022 04/18/2023 1 1 [facility] for referral (narrative)* Diagnostic Procedure Only (Routine) - Closed Specialty Diagnoses / Procedures Referred By Contac t Referred To Contact [facility] Diagnoses Function kidney decreased Procedures US KIDNEY/BLADDER US RETROPERITONEAL REAL TIME W/IMAGE COMPLETE Radha Reyes APRN.CNP [address] [place] [address] [place] [id number] Referral ID Status Reason Start Date Expiration Date V isits Requested Visits Authorized [id number] Closed Auto-Generate d Referral 09/08/2022 10/08/2023 1 1 Health Reason for Referral Specialty Diagnoses / Procedures Referred By Contac t Referred To Contact General Surgery Diagnoses Anemia, unspecified type Positive occult stool blood test Procedures CONSULT TO GENERAL SURGERY OFFICE/OUTPATIENT [facility] MDM 60-74 MINUTES Older, EMMANUEL Garcia.SOCK LINING EXAMINER [address] [place] [address] Referral ID Status Reason Start Date Expiration Date Visits Requested Visits Authorized [id number] Authorized PCP Requested Referral 10/15/2022 10/15/2023 1 1 Specialty Diagnoses / Procedures Referred By Contac t Referred To Contact Endocrinology Diagnoses Hypothyroidism, unspecified type Procedures CONSULT TO ENDOCRINOLOGY OFFICE/OUTPATIENT [facility] MDM 60-74 MINUTES Older, EMMANUEL Garcia.SOCK LINING EXAMINER [address] [place] [address] Referral ID Status Reason Start Date Expiration Date Visits Requested Visits Authorized [id number] Authorized PCP Requested Referral 12/08/2022 12/08/2023 1 1 Summary Purpose Family History No Family History Records FoundNo Family History Records Found Advance Directives No Advanced Directives Records FoundNo Advanced Directives Records Found Additional Source Comments Source Comments (unrecognize d section and content) In the event this informatio n is protected by the Federal Confidentiality of Alcohol and Drug Abuse Patient Records regulations: The Federal rules restrict any use of the information to criminally investigate or prosecute any alcohol or drug abuse patient.[facility] the event this information is protected by the Federal Confidentiality of Alcohol and Drug Abuse Patient Records regulations: The Federal rules restrict any use of the information to criminally investigate or prosecute any alcohol or drug abuse patient.[facility] the event this information is protected by the Federal Confidentiality of Alcohol and Drug Abuse Patient Records regulations: The Federal rules restrict any use of the information to criminally investigate or prosecute any alcohol or drug abuse patient.[facility]In the event this information is protected by the Federal Confidentiality of Alcohol and Drug Abuse Patient Records regulations: The Federal rules restrict any use of the information to criminally investigate or prosecute any alcohol or drug abuse patient.[facility] the event this information is protected by the Federal Confidentiality of Alcohol and Drug Abuse Patient Records regulations: The Federal rules restrict any use of the information to criminally investigate or prosecute any alcohol or drug abuse patient.[facility] the event this information is protected by the Federal Confidentiality of Alcohol and Drug Abuse Patient Records regulations: The Federal rules restrict any use of the information to criminally investigate or prosecute any alcohol or drug abuse patient.[facility] the event this information is protected by the Federal Confidentiality of Alcohol and Drug Abuse Patient Records regulations: The Federal rules restrict any use of the information to criminally investigate or prosecute any alcohol or drug abuse patient.[facility]In the event this information is protected by the Federal Confidentiality of Alcohol and Drug Abuse Patient Records regulations: The Federal rules restrict any use of the information to criminally investigate or prosecute any alcohol or drug abuse patient.[facility]In the event this information is protected by the Federal Confidentiality of Alcohol and Drug Abuse Patient Records regulations: The Federal rules restrict any use of the information to criminally investigate or prosecute any alcohol or drug abuse patient.[facility]In the event this information is protected by the Federal Confidentiality of Alcohol and Drug Abuse Patient Records regulations: The Federal rules restrict any use of the information to criminally investigate or prosecute any alcohol or drug abuse patient.[facility] the event this information is protected by the Federal Confidentiality of Alcohol and Drug Abuse Patient Records regulations: The Federal rules restrict any use of the information to criminally investigate or prosecute any alcohol or drug abuse patient.[facility] the event this information is protected by the Federal Confidentiality of Alcohol and Drug Abuse Patient Records regulations: The Federal rules restrict any use of the information to criminally investigate or prosecute any alcohol or drug abuse patient.[facility] the event this information is protected by the Federal Confidentiality of Alcohol and Drug Abuse Patient Records regulations: The Federal rules restrict any use of the information to criminally investigate or prosecute any alcohol or drug abuse patient.[facility]In the event this information is protected by the Federal Confidentiality of Alcohol and Drug Abuse Patient Records regulations: The Federal rules restrict any use of the information to criminally investigate or prosecute any alcohol or drug abuse patient.[facility]In the event this information is protected by the Federal Confidentiality of Alcohol and Drug Abuse Patient Records regulations: The Federal rules restrict any use of the information to criminally investigate or prosecute any alcohol or drug abuse patient.[facility]In the event this information is protected by the Federal Confidentiality of Alcohol and Drug Abuse Patient Records regulations: The Federal rules restrict any use of the information to criminally investigate or prosecute any alcohol or drug abuse patient.[facility]In the event this information is protected by the Federal Confidentiality of Alcohol and Drug Abuse Patient Records regulations: The Federal rules restrict any use of the information to criminally investigate or prosecute any alcohol or drug abuse patient.[facility] the event this information is protected by the Federal Confidentiality of Alcohol and Drug Abuse Patient Records regulations: The Federal rules restrict any use of the information to criminally investigate or prosecute any alcohol or drug abuse patient.[facility]In the event this information is protected by the Federal Confidentiality of Alcohol and Drug Abuse Patient Records regulations: The Federal rules restrict any use of the information to criminally investigate or prosecute any alcohol or drug abuse patient.[facility]In the event this information is protected by the Federal Confidentiality of Alcohol and Drug Abuse Patient Records regulations: The Federal rules restrict any use of the information to criminally investigate or prosecute any alcohol or drug abuse patient.[facility]In the event this information is protected by the Federal Confidentiality of Alcohol and Drug Abuse Patient Records regulations: The Federal rules restrict any use of the information to criminally investigate or prosecute any alcohol or drug abuse patient.[facility] the event this information is protected by the Federal Confidentiality of Alcohol and Drug Abuse Patient Records regulations: The Federal rules restrict any use of the information to criminally investigate or prosecute any alcohol or drug abuse patient.[facility]In the event this information is protected by the Federal Confidentiality of Alcohol and Drug Abuse Patient Records regulations: The Federal rules restrict any use of the information to criminally investigate or prosecute any alcohol or drug abuse patient.[facility]In the event this information is protected by the Federal Confidentiality of Alcohol and Drug Abuse Patient Records regulations: The Federal rules restrict any use of the information to criminally investigate or prosecute any alcohol or drug abuse patient.[facility]In the event this information is protected by the Federal Confidentiality of Alcohol and Drug Abuse Patient Records regulations: The Federal rules restrict any use of the information to criminally investigate or prosecute any alcohol or drug abuse patient.[facility]In the event this information is protected by the Federal Confidentiality of Alcohol and Drug Abuse Patient Records regulations: The Federal rules restrict any use of the information to criminally investigate or prosecute any alcohol or drug abuse patient.[facility]In the event this information is protected by the Federal Confidentiality of Alcohol and Drug Abuse Patient Records regulations: The Federal rules restrict any use of the information to criminally investigate or prosecute any alcohol or drug abuse patient.[facility]In the event this information is protected by the Federal Confidentiality of Alcohol and Drug Abuse Patient Records regulations: The Federal rules restrict any use of the information to criminally investigate or prosecute any alcohol or drug abuse patient.[facility]In the event this information is protected by the Federal Confidentiality of Alcohol and Drug Abuse Patient Records regulations: The Federal rules restrict any use of the information to criminally investigate or prosecute any alcohol or drug abuse patient.[facility]In the event this information is protected by the Federal Confidentiality of Alcohol and Drug Abuse Patient Records regulations: The Federal rules restrict any use of the information to criminally investigate or prosecute any alcohol or drug abuse patient.[facility]In the event this information is protected by the Federal Confidentiality of Alcohol and Drug Abuse Patient Records regulations: The Federal rules restrict any use of the information to criminally investigate or prosecute any alcohol or drug abuse patient.[facility]In the event this information is protected by the Federal Confidentiality of Alcohol and Drug Abuse Patient Records regulations: The Federal rules restrict any use of the information to criminally investigate or prosecute any alcohol or drug abuse patient.[facility] Care Teams (unrecognized sec tion and content) Sales Warehouse Driver Relationship Specialty Start Date End Date Anayeli Panda MD [address] [place] [address] PCP - General Internal Medicine 05/18/17 Sales Warehouse Driver Relationship Specialty Start Date End Date Anayeli Panda MD [address] [place] [address] PCP - General Internal Medicine 05/18/17 Sales Warehouse Driver Relationship Specialty Start Date End Date Anayeli Panda MD [address] [place] [address] PCP - General Internal Medicine 05/18/17 Sales Warehouse Driver Relationship Specialty Start Date End Date Anayeli Panda MD [address] [place] [address] PCP - General Internal Medicine 05/18/17 Sales Warehouse Driver Relationship Specialty Start Date End Date Anayeli Panda MD [address] [place] [address] PCP - General Internal Medicine 05/18/17 Sales Warehouse Driver Relationship Specialty Start Date End Date Anayeli Panda MD [address] [place] [address] PCP - General Internal Medicine 05/18/17 Sales Warehouse Driver Relationship Specialty Start Date End Date Anayeli Panda MD [address] [place] [address] PCP - General Internal Medicine 05/18/17 Sales Warehouse Driver Relationship Specialty Start Date End Date Anayeli Panda MD [address] [place] [address] PCP - General Internal Medicine 05/18/17 Sales Warehouse Driver Relationship Specialty Start Date End Date Anayeli Panda MD [address] [place] [address] PCP - General Internal Medicine 05/18/17 Sales Warehouse Driver Relationship Specialty Start Date End Date Anayeli Panda MD [address] [place] [address] PCP - General Internal Medicine 05/18/17 Sales Warehouse Driver Relationship Specialty Start Date End Date Anayeli Panda MD [address] [place] [address] PCP - General Internal Medicine 05/18/17 Sales Warehouse Driver Relationship Specialty Start Date End Date Anayeli Panda MD [address] [place] [address] PCP - General Internal Medicine 05/18/17 Sales Warehouse Driver Relationship Specialty Start Date End Date Anayeli Panda MD [address] [place] [address] PCP - General Internal Medicine 05/18/17 Sales Warehouse Driver Relationship Specialty Start Date End Date Anayeli Panda MD [address] [place] [address] PCP - General Internal Medicine 05/18/17 Sales Warehouse Driver Relationship Specialty Start Date End Date Anayeli Panda MD [address] [place] [address] PCP - General Internal Medicine 05/18/17 Sales Warehouse Driver Relationship Specialty Start Date End Date Anayeli Panda MD [address] [place] [address] PCP - General Internal Medicine 05/18/17 Sales Warehouse Driver Relationship Specialty Start Date End Date Anayeli Panda MD [address] [place] [address] PCP - General Internal Medicine 05/18/17 Sales Warehouse Driver Relationship Specialty Start Date End Date Anyaeli Panda MD [address] [place] [address] PCP - General Internal Medicine 05/18/17 Sales Warehouse Driver Relationship Specialty Start Date End Date Anayeli Panda MD [address] [place] [address] PCP - General Internal Medicine 05/18/17 Sales Warehouse Driver Relationship Specialty Start Date End Date Anayeli Panda MD [address] [place] [id number] PCP - General Internal Medicine 05/18/17 Reason for Visit (unrecogniz ed section and content) Reason Comments Recheck [facility] follow up, afib Reason Comments Results Reason Onset Date Comments Refill Request 04/07/2022 Reason Comments Lab Orders Reason Comments Diabetes Reason Comments Prescription transfer request Reason Comments Medication clarification Reason Comments Refill Request Reason Comments Recheck BP follow up Reason Comments Appointment Reason Comments Orders Reason Comments Opened In Error Reason Comments Recheck 6 week follow up Reason Comments Results Reason Comments Recheck 3 month follow up Reason Comments Insurance Authorization Reason Comments Med Change Request Reason Onset Date Comments Refill Request 05/01/2023 Reason Comments Radiology US Specialty Diagnoses / Procedures Referred By Contac t Referred To Contact US IMAGING Diagnoses Function kidney decreased Procedures US KIDNEY/BLADDER US RETROPERITONEAL REAL TIME W/IMAGE COMPLETE Radha Reyes, EMMANUEL.SOCK LINING EXAMINER [address] [facility] [id number] [place] [id number] Referral ID Status Reason Start Date Expiration Date V isits Requested Visits Authorized [id number] Closed Auto-Generate d Referral 09/08/2022 10/08/2023 1 1 INFORMATION SOURCE (unrecogn ized section and content) DATE CREATED AUTHOR AUTHOR'S ORGANIZ ATION 06/04/2023 [facility] FOR RECORDS PERTAINING TO PATIENTS WHO ARE OR HAVE BEEN ENROLLED IN A CHEMICAL DEPENDENCY/SUBSTANCEABUSE PROGRAM, SOME INFORMATION MAY BE OMITTED. This clinical summary was aggregated from multiple sources. Caution should be exercised in using it in the provision of clinical care. This summary normalizes information from multiple sources, and as a consequence, information in this document may materially change the coding, format and clinical context of patient data. In addition, data may be omitted in some cases. CLINICAL DECISIONS SHOULD BE BASED ON THE PRIMARY CLINICAL RECORDS. [employer] provides no warranty or guarantee of the accuracy or completeness of information in this document.
== END | disposition home or self-care (01) ==
PROVIDERS: PCP Nurse Practitioner; Referring Provider Physician Assistant Medical; Visit Provider Physician Assistant Medical
DX: I48.19 Other persistent atrial fibrillation (principal)
CPT/HCPCS: 36415; 80048

== ENCOUNTER 2023-11-11 10:44 | Day surgery (SDC) | payer MEDICARE, SELFPAY ==
--- NOTE | 2023-09-22 15:58 | PCM.HP.BLA ---
History and Physical Date of Admission: 09/30/23 CED TODD, is a 78 who presents for a cardioversion. In February of 2022, she presented to emergency room from her PCP office with a fast HR. In the emergency room she was noted to be in atrial fibrillation with a rapid ventricular response rate. She had a CT scan done of her chest which excluded pulmonary embolism.? She was given intravenous diltiazem and then started on a diltiazem drip and also given oral metoprolol.?Her blood pressure dropped to the 70s with a heart rate also in the 70s and requiring intravenous fluid at that time.? An echocardiogram performed demonstrated that her ejection fraction was approximately 30% with global hypokinesis. She underwent a cardiac catheterization which demonstrated an ejection fraction of 25%, and normal coronary arteries. She was discharged home on Eliquis, furosemide, losartan, and carvedilol. Follow up echocardiogram in 06/2022 demonstrated an ejection fraction which had improved to 50% she had a moderately dilated right ventricle with global dysfunction. She was in the office in 06/2023 with concerns on increased Afib. Echocardiogram demonstrated a decrease in her EF to 20%. We added spirolactone, increased her coreg, attempted Entresto, this was too expensive and she was switched back to losartan. the past, We had stopped her amiodarone d/t her thyroid function. She stopped her jardiance d/t elevated sugars per pt. HM demonstrated 100% Afib. DCCV was discussed she wanted to think about this and would further discuss at this appt. Pt has not had any chest pain/heaviness. She does not have any worsening SOB. She does get SOB walking up the steps but she feels that this is normal. She does not have any lightheadedness/dizziness. She does not have any edema. She thinks that she is slightly better since adding the spirolactone. She would like to pursue a DCCV. Intake Vital Signs See EMR Allergies See EMR Medications See EMR [facility] Medical History CHF (congestive heart failure), NYHA class II Diabetes mellitus Essential hypertension HFrEF (heart failure with reduced ejection fraction) New onset atrial fibrillation (03/03/22) Non-ischemic cardiomyopathy Non-rheumatic tricuspid valve insufficiency On amiodarone therapy Paroxysmal atrial fibrillation Persistent atrial fibrillation Right ventricular dilation Secondary pulmonary arterial hypertension Surgical History History of cardioversion (04/14/22) History of left heart catheterization (03/04/22) Social History household members: spouse housing: house Smoking Status: Never smoker ROS Const Const: Negative for fatigue, weakness, headache(s), frequent falls, excessive sweating, weight gain or weight loss Eyes Eyes: Negative for blind spots, loss of peripheral vision, transient loss of vision, blurry vision, change in vision or double vision ENT ENT: Positive for dizziness; Negative for headache(s), tinnitus, Nosebleed/epistaxis or balance problems Cardio Chest Pain: No Palpitations: No Edema: None Muscle aches with walking: None Resp Respiratory: Positive for SOB with activity; Negative for SOB at rest, SOB orthopnea\SOB lying down or Cough GI GI: Negative nausea, vomiting, heartburn, bloating, vomiting blood/hematemesis, bright, red blood in stools or black,tarry stools : Negative for hematuria Musc Musc: Negative for muscle aches/ myalgia, muscle weakness, joint pain or balance problems Skin Skin: Negative rash or wounds Neuro Neuro: Positive for dizziness; Negative for lightheadedness, near syncope, syncope, orthostatic symptoms, frequent falls, headache(s), weakness, confusion, memory loss, restless legs, blurry vision or double vision Sharad Hematologic/Lymphatic: Negative for easy bleeding or easy bruising Endo Endo: Negative for fatigue, cold intolerance, heat intolerance or excessive sweating Psych Psych: Negative for anxiety or depression Allergy Allergy/Immunology: Negative for rash Cardiology Exam Const Appearance: cooperative, healthy appearing, comfortable, no acute distress and well developed Orientation: alert, awake and oriented x3 Head Head: normal to inspection Ears: hearing grossly normal bilaterally Nose: external nose normal Face and Sinus: face symmetric Mouth: oral mucosae normal, lip normal and moist mucous membranes Eyes General: appearance normal, both eyes and all related structures Eyelids: eyelids normal Conjunctivae: conjunctivae normal Pupils: PERRL EOM: EOM intact bilaterally Neck Neck: normal visual inspection and trachea midline; Negative no JVD Carotids: Negative bruit Chest Chest inspection: normal inspection of the chest Auscultation: Bilateral: Clear to Auscultation Cardio Palpation: normal PMI Rate: regular rate Rhythm: irregularly irregular Heart sounds: S1 normal, S2 normal and murmur; Negative rub or gallop Murmur: Grade 2/6, harsh and mid systolic GI GI: soft, no hepatosplenomegaly and bowel sounds present Neuro General: patient alert, patient awake, patient oriented x3 and CN's II-XI intact bilaterally Extremities Pulses: Normal: Right Posterior Tibial Pulse, Left Posterior Tibial Pulse, Right Radial Pulse and Left Radial Pulse Lower Extremity Edema: Trace: Bilateral Psych Psychological: normal affect Supplemental Info Supplemental Information Echocardiogram 06/2023: Normal LV size. The estimated ejection fraction is 20 %. There is severe global hypokinesis of the left ventricle. Moderately dilated right ventricle. Moderate global right ventricular systolic dysfunction. The left atrium is moderately enlarged. Pulmonary artery systolic pressure is 82 mmHg. Severe pulmonary hypertension. Compared to previous study, the left ventricular systolic function has worsened.. ECHOCARDIOGRAM 06/30/2022 Interpretation Summary Normal LV size. The estimated ejection fraction is 50 %. Moderately dilated right ventricle. The left atrium is mildly enlarged. Mild-Moderate (1-2+) eccentric mitral valve insufficiency. Pulmonary artery systolic pressure is 80 mmHg. Moderately severe (3+) tricuspid valve insufficiency. The inferior vena cava is dilated RV pressures elevated ? Echocardiogram 03/03/2022: Interpretation Summary Normal LV size. The estimated ejection fraction is 30 %. There is moderate to severe global hypokinesis of the left ventricle. Pulmonary artery systolic pressure is 58 mmHg. Mild to moderate (1-2+) tricuspid valve insufficiency. CARDIAC CATHETERIZATION 03/04/2022: CONCLUSIONS Cardiomyopathy: Takotsubo RECOMMENDATIONS Medical therapy CORONARY ANGIOGRAPHY DOMINANCE:? Right Dominant LEFT HEART ASSESSMENT Left Ventricular Ejection Fraction: by LV Gram 25 % Global Hypokinesis - Severe LEFT MAIN: Angiographically normal LEFT ANTERIOR DESCENDING ARTERY: Angiographically normal CIRCUMFLEX ARTERY: Angiographically normal RIGHT CORONARY ARTERY: Angiographically normal Assessment and Plan Assessment and Plan (1) Persistent atrial fibrillation: Status: Acute Comment: DCCV 04/14/22 Plan: Patient has a history of persistent atrial fibrillation. Her heart rate is well controlled, and will continue carvedilol 25mg twice daily. She will continue Eliquis 5mg twice daily, and proceed with a DCCV to see if this well help improve her ejection fraction.
--- NOTE | 2023-11-03 09:50 | PCM.HP.BLA ---
History and Physical Date of Admission: 11/11/23 CED TODD, is a 78 who presents today for a cardioversion. In February of 2022, she presented to emergency room from her PCP office with a fast HR. In the emergency room she was noted to be in atrial fibrillation with a rapid ventricular response rate. She had a CT scan done of her chest which excluded pulmonary embolism.? She was given intravenous diltiazem and then started on a diltiazem drip and also given oral metoprolol.?Her blood pressure dropped to the 70s with a heart rate also in the 70s and requiring intravenous fluid at that time.? An echocardiogram performed demonstrated that her ejection fraction was approximately 30% with global hypokinesis. She underwent a cardiac catheterization which demonstrated an ejection fraction of 25%, and normal coronary arteries. She was discharged home on Eliquis, furosemide, losartan, and carvedilol. Follow up echocardiogram in 06/2022 demonstrated an ejection fraction which had improved to 50% she had a moderately dilated right ventricle with global dysfunction. She was in the office in 06/2023 with concerns on increased Afib. Echocardiogram demonstrated a decrease in her EF to 20%. We added spirolactone, increased her coreg, attempted Entresto, this was too expensive and she was switched back to losartan. the past, We had stopped her amiodarone d/t her thyroid function. She stopped her jardiance d/t elevated sugars per pt. HM demonstrated 100% Afib. DCCV was discussed she wanted to think about this and would further discuss at this appt. Pt has not had any chest pain/heaviness. She does not have any worsening SOB. She does get SOB walking up the steps but she feels that this is normal. She does not have any lightheadedness/dizziness. She does not have any edema. She thinks that she is slightly better since adding the spirolactone. She would like to pursue a DCCV. BP is elevated today, however at home it is normal. She did bring in a log. She had an upsetting phone call prior to coming in. Intake Vital Signs See EMR Allergies See EMR Medications See EMR [facility] Medical History CHF (congestive heart failure), NYHA class II Diabetes mellitus Essential hypertension HFrEF (heart failure with reduced ejection fraction) New onset atrial fibrillation (03/03/22) Non-ischemic cardiomyopathy Non-rheumatic tricuspid valve insufficiency On amiodarone therapy Paroxysmal atrial fibrillation Persistent atrial fibrillation Right ventricular dilation Secondary pulmonary arterial hypertension Surgical History History of cardioversion (04/14/22) History of left heart catheterization (03/04/22) Social History household members: spouse housing: house Smoking Status: Never smoker ROS Const Const: Negative for fatigue, weakness, headache(s), frequent falls, excessive sweating, weight gain or weight loss Eyes Eyes: Negative for blind spots, loss of peripheral vision, transient loss of vision, blurry vision, change in vision or double vision ENT ENT: Positive for dizziness; Negative for headache(s), tinnitus, Nosebleed/epistaxis or balance problems Cardio Chest Pain: No Palpitations: No Edema: None Muscle aches with walking: None Resp Respiratory: Positive for SOB with activity; Negative for SOB at rest, SOB orthopnea\SOB lying down or Cough GI GI: Negative nausea, vomiting, heartburn, bloating, vomiting blood/hematemesis, bright, red blood in stools or black,tarry stools : Negative for hematuria Musc Musc: Negative for muscle aches/ myalgia, muscle weakness, joint pain or balance problems Skin Skin: Negative rash or wounds Neuro Neuro: Positive for dizziness; Negative for lightheadedness, near syncope, syncope, orthostatic symptoms, frequent falls, headache(s), weakness, confusion, memory loss, restless legs, blurry vision or double vision Sharad Hematologic/Lymphatic: Negative for easy bleeding or easy bruising Endo Endo: Negative for fatigue, cold intolerance, heat intolerance or excessive sweating Psych Psych: Negative for anxiety or depression Allergy Allergy/Immunology: Negative for rash Cardiology Exam Const Appearance: cooperative, healthy appearing, comfortable, no acute distress and well developed Orientation: alert, awake and oriented x3 Head Head: normal to inspection Ears: hearing grossly normal bilaterally Nose: external nose normal Face and Sinus: face symmetric Mouth: oral mucosae normal, lip normal and moist mucous membranes Eyes General: appearance normal, both eyes and all related structures Eyelids: eyelids normal Conjunctivae: conjunctivae normal Pupils: PERRL EOM: EOM intact bilaterally Neck Neck: normal visual inspection and trachea midline; Negative no JVD Carotids: Negative bruit Chest Chest inspection: normal inspection of the chest Auscultation: Bilateral: Clear to Auscultation Cardio Palpation: normal PMI Rate: regular rate Rhythm: irregularly irregular Heart sounds: S1 normal, S2 normal and murmur; Negative rub or gallop Murmur: Grade 2/6, harsh and mid systolic GI GI: soft, no hepatosplenomegaly and bowel sounds present Neuro General: patient alert, patient awake, patient oriented x3 and CN's II-XI intact bilaterally Extremities Pulses: Normal: Right Posterior Tibial Pulse, Left Posterior Tibial Pulse, Right Radial Pulse and Left Radial Pulse Lower Extremity Edema: Trace: Bilateral Psych Psychological: normal affect Supplemental Info Supplemental Information Echocardiogram 06/2023: Normal LV size. The estimated ejection fraction is 20 %. There is severe global hypokinesis of the left ventricle. Moderately dilated right ventricle. Moderate global right ventricular systolic dysfunction. The left atrium is moderately enlarged. Pulmonary artery systolic pressure is 82 mmHg. Severe pulmonary hypertension. Compared to previous study, the left ventricular systolic function has worsened.. ECHOCARDIOGRAM 06/30/2022 Interpretation Summary Normal LV size. The estimated ejection fraction is 50 %. Moderately dilated right ventricle. The left atrium is mildly enlarged. Mild-Moderate (1-2+) eccentric mitral valve insufficiency. Pulmonary artery systolic pressure is 80 mmHg. Moderately severe (3+) tricuspid valve insufficiency. The inferior vena cava is dilated RV pressures elevated ? Echocardiogram 03/03/2022: Interpretation Summary Normal LV size. The estimated ejection fraction is 30 %. There is moderate to severe global hypokinesis of the left ventricle. Pulmonary artery systolic pressure is 58 mmHg. Mild to moderate (1-2+) tricuspid valve insufficiency. CARDIAC CATHETERIZATION 03/04/2022: CONCLUSIONS Cardiomyopathy: Takotsubo RECOMMENDATIONS Medical therapy CORONARY ANGIOGRAPHY DOMINANCE:? Right Dominant LEFT HEART ASSESSMENT Left Ventricular Ejection Fraction: by LV Gram 25 % Global Hypokinesis - Severe LEFT MAIN: Angiographically normal LEFT ANTERIOR DESCENDING ARTERY: Angiographically normal CIRCUMFLEX ARTERY: Angiographically normal RIGHT CORONARY ARTERY: Angiographically normal Assessment and Plan Assessment and Plan (1) Persistent atrial fibrillation: Status: Acute Comment: DCCV 04/14/22 Plan: Patient has a history of persistent atrial fibrillation. She does have a CHADVASC2 of 4. She will continue with her eliquis. Her HR is controlled on her current dose of coreg. Will proceed with a DCCV to see if his helps with her EF. (2) Non-ischemic cardiomyopathy: Status: Acute Plan: Recent echo did demonstrate a decrease in her EF to 20%. We adjusted her medications. She did not tolerate Jardiance. Entresto was too costly. She will continue with her Coreg, Losartan and Spirolactone. Would like to repeat her echo a few months after her DCCV to see if that and the medication adjustments helped with her EF. If it has not improved may need to consider prophylactic ICD.
[2023-11-10 08:47] VITALS: BMI 36.1
--- OUTSIDE RECORDS SUMMARY | 2023-11-11 11:09 | XMS RPT_ITS | CCD ---
Author Name Unknown Address [address] [place] [address] Organization [facility] Care Team Providers Care Engineering Clerk Name Role Phone Renu TORRES, Anayeli Primary Care Provider [phone] EL TORRES, SKYLAR Myers Attending Unavailable LE TORRES, SKYLAR Myers Attending Unavailable PHYSICIAN, NONE Primary Care Unavailable VAL TORRES, DR LANDERS Attending Unavailyusuf Panda MD, Anayeli Primary Care Provider Renu TORRES, Anayeli Primary Care Provider [phone] OLDER, RADHA Attending Unavailable GANTA, ANAYELI Primary [...] atorvastatin; Translations: [ATORVASTATIN CALCIUM] Drug Allergy 10-24-2005 [facility] (20 sources) Doxycycline; Translations: [DOXYCYCLINE] Drug Allergy 04-16-2015 Rash, Diarrhea, Vomiting [facility] Work Phone: (20 sources) glimepiride; Translations: [GLIMEPIRIDE] Drug Allergy 10-24-2005 [facility] (20 sources) Pravastatin; Translations: [PRAVASTATIN] Drug Allergy 01-07-2010 [facility] Work Phone: (20 sources) quinapril; Translations: [QUINAPRIL HCL] Drug Allergy 10-24-2005 [facility] (20 sources) Ramipril; Translations: [RAMIPRIL] Drug Allergy 10-24-2005 [facility] (20 sources) rosuvastatin; Translations: [ROSUVASTATIN CALCIUM] Drug Allergy 02-13-2009 [facility] Work Phone: (20 sources) Simvastatin; Translations: [SIMVASTATIN] Drug Allergy 10-24-2005 [facility] Medications Current Medications Medication Drug Class(es) Dates [...] [Anemia, unspecified] Episodic Diabetes mellitus with complications (10 sources) Type 2 diabetes mellitus; Translations: [Type [...] Onset: 09-03-2022 Episodic Other aftercare (1 source) 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; Translations: [Type 2 diabetes mellitus with chronic kidney disease, with long-term current use of insulin, unspecified CKD stage (HCC)] Onset: 03-02-2023 Episodic Other aftercare (1 source) Other nursing home (current) drug therapy; Translations: [Medication management] Onset: [...] Test Name Value Interpretation Reference Range Facil ity Vital Signs Date Time Vital Sign Value Performing Clinician Stella lit 06-03-2023 18:26-0400 Diastolic blood pressure 82 mm[Hg] Radha Older HOLE FILLER.LINEN GRADER Work Phone: [facility] 06-03-2023 18:26-0400 Systolic blood pressure 136 mm[Hg] Radha Older HOLE FILLER.LINEN GRADER Work Phone: [facility] 06-03-2023 11:34-0400 Body weight 80.74 kg Radha Older HOLE FILLER.LINEN GRADER Work Phone: [facility] 06-03-2023 11:34-0400 Heart rate 84 /min Radha Older HOLE FILLER.LINEN GRADER Work Phone: [facility] 06-03-2023 11:34-0400 Respiratory rate 16 /min Radha Older HOLE FILLER.LINEN GRADER Work Phone: [facility] 02-02-2023 09:53-0400 Body weight 73.48 kg Radha Older HOLE FILLER.LINEN GRADER Work Phone: [facility] 02-02-2023 09:53-0400 Diastolic blood pressure 70 mm[Hg] Radha Older HOLE FILLER.LINEN GRADER Work Phone: [facility] 02-02-2023 09:53-0400 Heart rate 52 /min Radha Older HOLE FILLER.LINEN GRADER Work Phone: [facility] 02-02-2023 09:53-0400 Respiratory rate 16 /min Radha Older HOLE FILLER.LINEN GRADER Work Phone: [facility] 02-02-2023 09:53-0400 Systolic blood pressure 162 mm[Hg] Radha Older HOLE FILLER.LINEN GRADER Work Phone: [facility] 11-05-2022 15:13-0500 Body weight 81.65 kg Radha Older HOLE FILLER.LINEN GRADER Work Phone: [facility] 11-05-2022 15:13-0500 Diastolic blood pressure 84 mm[Hg] Radha Older HOLE FILLER.LINEN GRADER Work Phone: [facility] 11-05-2022 15:13-0500 Heart rate 60 /min Radha Older HOLE FILLER.LINEN GRADER Work Phone: [facility] 11-05-2022 15:13-0500 Respiratory rate 16 /min Radha Older HOLE FILLER.LINEN GRADER Work Phone: [facility] 11-05-2022 15:13-0500 Systolic blood pressure 168 mm[Hg] Radha Older HOLE FILLER.LINEN GRADER Work Phone: [facility] 10-06-2022 14:45-0500 Diastolic blood pressure 74 mm[Hg] Radha Older HOLE FILLER.LINEN GRADER Work Phone: [facility] 10-06-2022 14:45-0500 Systolic blood pressure 145 mm[Hg] Radha Older HOLE FILLER.LINEN GRADER Work Phone: [facility] 08-25-2022 11:42-0500 Diastolic blood pressure 72 mm[Hg] Radha Older HOLE FILLER.LINEN GRADER Work Phone: [facility] 08-25-2022 11:42-0500 Systolic blood pressure 161 mm[Hg] Radha Older HOLE FILLER.LINEN GRADER Work Phone: [facility] 08-25-2022 10:52-0500 Body weight 76.2 kg Radha Older HOLE FILLER.LINEN GRADER Work Phone: [facility] 08-25-2022 10:52-0500 Heart rate 68 /min Radha Older HOLE FILLER.LINEN GRADER Work Phone: [facility] 08-25-2022 10:52-0500 Respiratory rate 16 /min Radha Older HOLE FILLER.LINEN GRADER Work Phone: [facility] 04-02-2022 16:14-0400 Diastolic blood pressure 88 mm[Hg] Radha Older HOLE FILLER.LINEN GRADER Work Phone: [facility] 04-02-2022 16:14-0400 Heart rate 92 /min Radha Older HOLE FILLER.LINEN GRADER Work Phone: [facility] 04-02-2022 16:14-0400 Systolic blood pressure 134 mm[Hg] Radha Older HOLE FILLER.LINEN GRADER Work Phone: [facility] 04-02-2022 15:52-0400 Body weight 79.38 kg Radha Older HOLE FILLER.LINEN GRADER Work Phone: [facility] 04-02-2022 15:52-0400 Respiratory rate 16 /min Radha Older HOLE FILLER.LINEN GRADER Work Phone: [facility] 03-03-2022 09:04-0400 Body height 149.9 cm Anayeli Panda MD Work Phone: [facility] 03-03-2022 09:04-0400 Body temperature 97.3 [degF] Anayeli Panda MD Work Phone: [facility] 03-03-2022 09:04-0400 Body weight 77.11 kg Anayeli Panda MD Work Phone: [facility] 03-03-2022 09:04-0400 Diastolic blood pressure 90 mm[Hg] Anayeli Panda MD Work Phone: [facility] 03-03-2022 09:04-0400 Heart rate 140 /min Anayeli Panda MD Work Phone: [facility] 03-03-2022 09:04-0400 Respiratory rate 12 /min Anayeli Panda MD Work Phone: [facility] 03-03-2022 09:04-0400 SaO2% (BldA) [Mass fraction] 98 % Anayeli Panda MD Work Phone: [facility] 03-03-2022 09:04-0400 Systolic blood pressure 140 mm[Hg] Anayeli Panda MD Work Phone: [facility] Encounters Encounter Date Encounter Type Care Provider Facility Start: 11-06-2023 Refill Radha Reyes APRN GabriellaLINEN GRADER Work Phone: [facility] Procedures Date Procedure Procedure Detail Performing Clinician Start: 09-24-2022 Us retroperitoneal r eal time w/image complete Radha Reyes HOLE FILLER.LINEN GRADER Work Phone: Start: 03-03-2022 Adult depression scr eening assessment Anayeli Panda MD Work Phone: Start: 11-27-2020 Adult depression scr eening assessment Anayeli Panda MD Work Phone: Start: 03-02-2019 Mammography Anayeli mcmillan MD Work Phone: Start: 09-08-2011 Colonoscopy Anayeli mcmillan MD Work Phone: Plan of Treatment Date Care Activity Detail Author Start: 06-03-2024 Annual PCP Team Marketing And Development Coordinator fiorella Disease Visit Annual PCP Team Chronic Disease Visit [facility] Start: 05-27-2024 Complete blood count Hemoglobin/Sharad tocrit [facility] Start: 05-27-2024 Creatinine measurement Serum Creatin ine [facility] Start: 05-27-2024 Hemoglobin/Hematocrit Hemoglobin/Hem [facility] Start: 05-27-2024 Hepatitis B surface antibody level LDL Cholesterol [facility] Start: 05-27-2024 Serum Creatinine Serum Creatinine [facility] Start: 03-02-2024 ANNUAL PCP TEAM DISABILITY CASE MANAGER FIORELLA DISEASE VISIT ANNUAL PCP TEAM CHRONIC DISEASE VISIT [facility] Start: 02-26-2024 SERUM CREATININE SERUM CREATININE [facility] Start: 02-03-2024 3 comp foot exam completed DIABETIC FOOT EXAM [facility] Start: 02-03-2024 ANNUAL PCP TEAM DISABILITY CASE MANAGER FIORELLA DISEASE VISIT ANNUAL PCP TEAM CHRONIC DISEASE VISIT [facility] Start: 02-03-2024 Diabetic foot examination Diabetic F oot Exam [facility] Start: 02-03-2024 [facility]: 02-03-2024 SERUM CREATININE SERUM CREATININE [facility] Start: 01-29-2024 Hepatitis B screening URINE AL BUMIN:CREATININE RATIO [facility] Start: 12-02-2023 Glaucoma screening Dilated Retinal E xam [facility] Start: 12-02-2023 Hepatitis C antibody , confirmatory test DILATED RETINAL EXAM [facility] Start: 11-25-2023 Hemoglobin A1c measurement HbA1C [facility] Start: 11-25-2023 Hemoglobin A1c/Hemoglobin.total in Blood HbA1C [facility] Start: 11-05-2023 ANNUAL PCP TEAM DISABILITY CASE MANAGER FIORELLA DISEASE VISIT ANNUAL PCP TEAM CHRONIC DISEASE VISIT [facility] Start: 11-05-2023 COLORECTAL CANCER SCREENING COLORECTAL CANCER SCREENING [facility] Immunizations Immunization Date Immunization Notes Care Provider Fa cility 12-25-2020 COVID-19 vaccine, ag e 12+ yr (PFIZER-BIONTECH - PURPLE TOP) Anayeli Panda MD Work Phone: [facility] Work Phone: 12-03-2020 COVID-19 vaccine, ag e 12+ yr (PFIZER-BIONTECH - PURPLE TOP) Anayeli Panda MD Work Phone: [facility] Work Phone: 02-15-2020 zoster vaccine recombinant Anayeli Panda MD Work Phone: [facility] 12-17-2019 zoster vaccine recombinant Anayeli Panda MD Work Phone: [facility] 07-26-2018 pneumococcal polysaccharide vaccine, 23 valent Anayeli Panda MD Work Phone: [facility] Work Phone: 07-26-2018 influenza virus vacc ine, unspecified formulation Radha Reyes APRN.CNP Work Phone: [facility] 12-18-2014 pneumococcal conjuga te vaccine, 13 valent Anayeli Panda MD Work Phone: [facility] 01-27-2006 pneumococcal polysaccharide vaccine, 23 valmariana Panda MD Work Phone: [facility] Payers Date Payer Category Payer Medicare MMO MEDICARE MMO MEDADVANTAGE O [id number] 2017-Present [phone] [address] [place] [address] [facility] [id number] 2017 Medicare MMO MEDICARE MMO MEDADVANTAGE HMO [id number] 2017-Present [phone] [address] [place] [address] HMO [id number] 2017 Unknown [id number] 1945 Unknown [id number] 1945 Unknown [id number] 1945 Unknown [id number] Social History Date Type Detail Facility Start: 09-08-2011 Tobacco smoking status MOIS Never smoked tobacco [facility] Start: 09-18-2021 End: 03-02-2023 Alcohol intake Current drinker of alcohol (finding) [facility] Start: 04-03-2020 End: 08-24-2022 History SDOH Alcohol Frequency 3 [facility] Start: 04-03-2020 End: 08-24-2022 History SDOH Alcohol Std Drinks 1 [facility] Start: 04-03-2020 End: 08-24-2022 History SDOH Social Connections Phone 5 [facility] Start: 04-03-2020 End: 08-24-2022 History SDOH Social Connections Membership 2 [facility] Start: 04-03-2020 End: 08-24-2022 History SDOH Physical Activity DPW 4 [facility] Start: 04-03-2020 Education 15 [facility] Start: 1945 Sex Assigned At Female [facility] Start: 02-21-2022 End: 08-25-2022 Exposure to SARS-CoV-2 (event) Not sure [facility] Work Phone: Start: 09-08-2011 Tobacco use and exposure Smokeless tobacco non-user [facility] Start: 08-24-2022 End: 02-02-2023 History of Social function [facility] Start: 08-24-2022 End: 02-02-2023 Social connection and isolation panel [facility] Do you belong to any clubs or organizations such as restoration groups, unions, fraternal or athletic groups, or school groups? No [facility] Are you now , , , , never or living with a partner? [facility] How often to you hav e a drink containing alcohol? Monthly or less [facility] How many standard dr inks containing alcohol do you have on a typical day? 1 or 2 [facility] How often do you hav e 6 or more drinks on 1 occasion? Never [facility] Adult Depression Screening Assessment 0 [facility] Work Phone: Do you feel stress - tense, restless, nervous, or anxious, or unable to sleep at night because your mind is troubled all the time - these days [OSQ] To some extent [facility] (I/We) worried wheth er (my/our) food would run out before (I/we) got money to buy more. Never true [facility] Start: 02-18-2019 Gender identity Identifies as female gender (finding) [facility] Start: 02-18-2019 Sexual orientation Heterosexual (finding) [facility] Medical Equipment Procedure Code Equipment Code Equipment Origin al Text Equipment Identifier Dates Start: 04-09-2020 End: 02-02-2023 Clinical Notes 12-10-2017 to 11-06-2023 Telephone Encounter - Marlene Segura LPN - 11/06/2023 11:37 AM ESTPatient Radha Lai APRN.LENNY - 06/03/2023 11:46 AM EDTTelephone Encounter - Rebekah Terrell RN - 05/01/2023 3:59 PM EDT Note Date & Type Note Facility 11-06-2023 Miscellaneous Notes Patient has been identified by name and date of : No Patient phones for refill(s): Requested Prescriptions Pending Prescriptions Disp Refills ezetimibe (ZETIA) 10 mg tablet 36 tablet 1 Sig: Take 1 tablet by mouth once daily. Take 3 times per week Date of last office visit in primary care: 06/03/2023 Date of next office visit in primary care: 12/02/2023 Please advise. Thank you. Marlene Segura LPN. documented in this encounter [facility] 06-03-2023 Note HNO ID: [id number] Author: Radha Reyes APRN.LINEN GRADER Service: ? Author Type: Nurse Practitioner Type: [...] so she stopped wearing her watch. Sees [facility] for routine follow up next [...] rhonchi, rales. Heart (more content not included)... [facility] 06-03-2023 Instructions Radha Reyes APRN.CNP - 06/03/2023 [...] or other concerns. documented in this encounter [facility] 06-03-2023 History of Present illness Narrative CC: [...] so she stopped wearing her watch. Sees [facility] for routine follow up next [...] Radha Reyes APRN.CNP documented in this encounter [facility] 05-01-2023 Miscellaneous Notes Last Office Visit: 03/02/2023 Future Office Visit: 06/03/2023 Requested Prescriptions Pending Prescriptions Disp Refills glipiZIDE XL (GLUCOTROL XL) 2.5 mg 24 hr tablet 90 tablet 1 Sig: Take 1 tablet by mouth once daily. Date of Last Labs: 01/28/2023 documented in this encounter [facility] 04-01-2023 Miscellaneous Notes Addended by: MECHELLE REYES [...] Marlene Snow LPN documented in this encounter [facility] 03-13-2023 Miscellaneous Notes spoke with pharmacist and glipizide went through insurance with no problems. Marlene Snow LPN Glipizide ordered. Patient has reported nausea with glimepiride so not indicated. Thank you Radha Reyes APRN.LENNY Lamar'porsche PA from [employer] for the glybiride. Called the pharmacy and they report they ran rx with a discount card and pt paid 12$ for 30. They ran the rx to see what formulary medicines are and they report it is glipizide or glimepiride. Are either of these appropriate? Did not review with pt. documented in this encounter [facility] 03-02-2023 Note HNO ID: [id number] Author: Radha Reyes APRN.LENNY Service: ? Author Type: Nurse Practitioner Type: [...] 05/22/2023 LDL ALYCE (more content not included)... [facility] 02-02-2023 Note HNO ID: [id number] Author: Radha Reyes APRN.LENNY Service: ? Author Type: Nurse Practitioner Type: [...] intolerance, polyuria, kylee (more content not included)... [facility] 02-02-2023 Instructions Shannan Redd - 02/02/2023 10:57 AM EDT Start your glyburide, make sure you take it with food as it can drop your blood sugar Continue logging the blood pressures and blood sugars. Try to document whether blood sugar is fasting in the morning, and get some that are 2 hours after eating. Get your labs today documented in this encounter [facility] 02-02-2023 History of Present illness Narrative Chief [...] Radha Reyes APRN.CNP documented in this encounter [facility] 01-20-2023 Note Patient Outreach (IN TMMN) ALVA TODD ([id number]) 1945 F Date Time Provider Department 01/20/23 [...] Order(s):ALBUMIN/CREAT RATIO RND UR [SQUACR] Order #: [id number] FUTURE HGB A1C [EOFUC1E] Order #: [id number] FUTURE Prescriptions as of 01/23/2023 - blood [...] 04/09/2020 Encounter Status:Closed by MARCIO VARELA on 01/23/23 [facility] 01-12-2023 Miscellaneous Notes Patient has been identified [...] Marlene Snow LPN documented in this encounter [facility] 12-08-2022 Miscellaneous Notes Spoke with pt and information listed below given. Pt verbalizes understanding. Pt transferred to practice coordinator to get apt with Endocrinology. Daly Browning [...] come in earlier. Thank you Radha Reyes APRN.LENNY documented in this encounter [facility] 11-14-2022 Miscellaneous Notes Pt called and is [...] Orders placed again Thank you Radha Reyes APRN.LENNY documented in this encounter [facility] 11-06-2022 Miscellaneous Notes Patient informed. Meka Zarco ----- Message from Anayeli Panda MD sent at 11/05/2022 1:13 PM EST ----- Mag levels are normal documented in this encounter [facility] 11-05-2022 Note HNO ID: [id number] Author: Radha Reyes APRN.CNP Service: ? Author [...] Take 1 tab (more content not included)... [facility] 11-05-2022 History of Present illness Narrative CC: [...] Radha Reyes APRN.LENNY documented in this encounter [facility] 10-21-2022 Note Patient Outreach (IN TMMN) ALVA TODD ([id number]) 1945 F Date Time Provider Department 10/21/22 [...] management [Z79.899] Order(s):MAGNESIUM BLD [SQMG1] Order #: [id number] FUTURE SCHEDULE LAB TESTING [[id number]] Order #: [id number] FUTURE Prescriptions as of 10/24/2022 - empagliflozin [...] 09/16/2021 Hypercalcemia [E83.52] 04/09/2020 Encounter Status:Closed by EVELYN VARELAUSEJeff on 10/24/22 [facility] 10-15-2022 Miscellaneous Notes Patient notified and will [...] like to schedule. Thank you Radha Reyes APRN.CNP documented in this encounter [facility] 10-08-2022 Miscellaneous Notes Noted. Radha Reyes APRN.CNP Pt wanted to let provider know that pt has an appt Weds 10/08 with Isabella Loja with [facility] Cardiology. Irasema Cardona LPN documented in this encounter [facility] 10-06-2022 Note HNO ID: [id number] Author: Radha Reyes APRN.CNP Service: ? Author [...] feels very fatigued with this but her acute dialysis registered nurse would not change her medications. DIABETES MELLITUS: [...] for age; Eyes: (more content not included)... [facility] 10-06-2022 History of Present illness Narrative CC: [...] feels very fatigued with this but her acute dialysis registered nurse would not change her medications. DIABETES MELLITUS: [...] she would like to see a different acute dialysis registered nurse we can fax consult or schedule her [...] consult sent elsewhere or to see a [facility] acute dialysis registered nurse. 5. Other fatigue - ICD9: 780.79, ICD10: [...] Radha Reyes APRN.CNP documented in this encounter [facility] 10-01-2022 Miscellaneous Notes Patient has been identified [...] Daly Browning LPN documented in this encounter [facility] 09-26-2022 Miscellaneous Notes Patient returned call and said she did not understand her instructions given. Went over notes below from Radha Reyes WEB APPLICATION DEVELOPER with patient again aware to take 2 [...] Radha Reyes APRN.CNP documented in this encounter [facility] 09-24-2022 Note HNO ID: [id number] Author: Jackelin Morelos RDMS Service: ? Author Type: Cheesemaker Type: Progress Notes Filed: 09/24/2022 3:38 PM [...] Not applicable SIGNED BY: Jackelin Morelos RDMS T September 24, 2022 3:38 PM [facility] 09-24-2022 History of Present illness Narrative Radiology [...] RDMS RVT September 24, 2022 3:38 PM documented in this encounter [facility] 09-17-2022 Miscellaneous Notes Metformin 500mg 1 tablet twice daily. New prescription sent. Please call and update [facility]. Thank you Radha Reyes APRN.CNP [facility] phoned asking for clarification on metformin instructions. There are 2 sets of instructions. Please phone [facility], compounding pharmacy technician, with clarification on which set of instructions they should use. [phone] documented in this encounter [facility] 09-08-2022 Note HNO ID: [id number] Author: Radha Reyes APRN.CNP Service: ? Author [...] medications for atrial fibrillation that she sees [facility] for. Denies any edema, chest [...] alert Pysch: m (more content not included)... [facility] 09-05-2022 Miscellaneous Notes Pt called and is notified of providers message. Pt voices understanding. Ann Schmid RN Please let patient know this has been sent. Thank you Radha Reyes APRN.CNP Patient requesting her recent levothyroxine 25 mcg be cancelled at [facility] and sent to [facility] in [place] due to insurance coverage issues, if provider agreeable. Please call patient once this has been done. Thank you. documented in this encounter [facility] 09-05-2022 Miscellaneous Notes Pt called [...] Radha Reyes APRN.CNP documented in this encounter [facility] 08-25-2022 Note HNO ID: [id number] Author: Radha Reyes APRN.CNP Service: ? Author Type: Nurse Practitioner Type: Progress Notes Filed: 08/25/2022 12:22 PM Note Text: CC: Patient presents with: Diabetes HPI Alva [...] past [address] Rao at [facility]. HTN and HLD: Ms. Todd indicates that [...] Thyroid normal s (more content not included)... [facility] 08-25-2022 Instructions Radha Reyes APRN.LINEN GRADER - 08/25/2022 11:49 AM EST Get labs drawn in 7-10 days. Check BP daily, same time of day. Keep record of BP readings and HR. Bring to follow up appointment. Bring Home BP monitor to appointment to validate readings. documented in this encounter [facility] 08-25-2022 Nurse Note 161/72 - true BP average 159/62 160/76 158/71 160/74 166/75 Coral Jerez MA documented in this encounter [facility] 08-25-2022 History of Present illness Narrative CC: Patient presents with: Diabetes HPI Alva Todd is a 77 year old female who presents today for diabetes and hypertension follow up but also has concerns of fatigue and always feeling cold. DIABETES MELLITUS: Ms. Tdod denies excessive thirst or increased frequency of [...] past [address] Rao at [facility]. HTN and HLD: Ms. Todd indicates that [...] 4 - Moderate documented in this encounter [facility] 08-13-2022 Miscellaneous Notes Fasting lab work ordered. Thank you Radha Reyes APRN.CNP Patient calls and states that she has appointment with provider on 08/25. Patient asking if provider wants patient to have labs done prior to appointment. Labs pended if agreeable. Rebekah Terrell RN documented in this encounter [facility] 08-12-2022 Note Patient Outreach (IN TMMN) ALVA TODD ([id number]) 1945 F Date Time Provider Department 08/12/22 [...] Date Reviewed: 04/02/2022 Reviewed by: Radha Reyes APRN.LINEN GRADER - Fully Assessed Visit Diagnosis:Diabetes mellitus type 2, controlled, without complications (HCC) [E11.9] Order(s):HGB A1C [[id number]] Order #: [id number] FUTURE CBC [SQCBC] Order #: [id number] FUTURE SCHEDULE LAB TESTING [[id number]] Order #: [id number] FUTURE Prescriptions as of 08/15/2022 - metFORMIN [...] 09/16/2021 Hypercalcemia [E83.52] 04/09/2020 Encounter Status:Closed by IN-PIPE TECHNOLOGYEVELYNUSEJeff on 08/15/22 [facility] 04-09-2022 Miscellaneous Notes Patient is calling and [...] Jovanni Ward Ma documented in this encounter [facility] 04-03-2022 Miscellaneous Notes Patient notified. ----- Message from Anayeli Panda MD sent at 04/03/2022 3:02 PM EDT ----- Calcium is normal and so is the Pth this time Regards, Anayeli Panda MD documented in this encounter [facility] 04-02-2022 History of Present illness Narrative CC: Patient presents with: Recheck: [facility] follow up, afib HPI Alva Todd is a 76 year old female who presents today for hospital follow-up. Facility: [facility] Date of visit: 03/03-03/06 Reason for visit: Was sent by Dr. Panda to ER. Was new onset A-fib with RVR in office. Hospital course: Echo and Heart cath EF of 25%. Was on Cardizem and metoprolol in the hospital Diagnosis: New onset A-fib with RVR Discharge: still in A-fib, followed up with [facility] since discharge, had carvedilol increased at [...] past [address] Rao with [facility]. REVIEW OF SYSTEMS General: no fevers, no [...] 65+ Completed DATA REVIEWED: Outside chart from [facility] reviewed. ASSESSMENT/PLAN: 1. History of recent hospitalization [...] 2 diabetes mellitus without complication, unspecified whether nursing home insulin use (HCC) - ICD9: 250.00, [...] Radha Reyes APRN.LENNY documented in this encounter [facility] 03-03-2022 History of Present illness Narrative Reason [...] stop and also get put with the acute dialysis registered nurse as she wants to go for vacation. We discussed the need to be on a blood thinner too. - ECG COMPLETE 6. Onychomycosis - ICD9: 110.1, ICD10: B35.1 7. Controlled type 2 diabetes mellitus without complication, unspecified whether clarity developer insulin use (HCC) - ICD9: 250.00, ICD10: E11.9 worsening control - Continue current medications Anayeli Panda MD documented in this encounter [facility] documented as of this encounter (statuses as of 02/21/2022) [facility] History of Past illness Narrative* Problem Noted Date Resolved Date Morbid (severe) obesity due to excess calories 0 12/10/2017 09/16/2021 Vitreous hemorrhage of right eye 11/01/2013 09/16/2021 Overview: right eye -- s/p bimedial recession 06/03/2013 s/p PPV, EL OD 07/19/2013 documented as of this encounter (statuses as of 03/03/2022) [facility] History of Past illness Narrative* Problem Noted Date Resolved Date Morbid (severe) obesity due to excess calories 0 12/10/2017 09/16/2021 Vitreous hemorrhage of right eye 11/01/2013 09/16/2021 Overview: right eye -- s/p bimedial recession 06/03/2013 s/p PPV, EL OD 07/19/2013 documented as of this encounter (statuses as of 03/24/2022) [facility] History of Past illness Narrative* Problem Noted Date Resolved Date Morbid (severe) obesity due to excess calories 0 12/10/2017 09/16/2021 Vitreous hemorrhage of right eye 11/01/2013 09/16/2021 Overview: right eye -- s/p bimedial recession 06/03/2013 s/p PPV, EL OD 07/19/2013 documented as of this encounter (statuses as of 04/02/2022) [facility] History of Past illness Narrative* Problem Noted Date Resolved Date Morbid (severe) obesity due to excess calories 0 12/10/2017 09/16/2021 Vitreous hemorrhage of right eye 11/01/2013 09/16/2021 Overview: right eye -- s/p bimedial recession 06/03/2013 s/p PPV, EL OD 07/19/2013 documented as of this encounter (statuses as of 04/03/2022) [facility] of Past illness Narrative* Problem Noted Date Resolved Date Morbid (severe) obesity due to excess calories 0 12/10/2017 09/16/2021 Vitreous hemorrhage of right eye 11/01/2013 09/16/2021 Overview: right eye -- s/p bimedial recession 06/03/2013 s/p PPV, EL OD 07/19/2013 documented as of this encounter (statuses as of 04/09/2022) [facility] illness Narrative* Problem Noted Date Resolved Date Morbid (severe) obesity due to excess calories 0 12/10/2017 09/16/2021 Vitreous hemorrhage of right eye 11/01/2013 09/16/2021 Overview: right eye -- s/p bimedial recession 06/03/2013 s/p PPV, EL OD 07/19/2013 documented as of this encounter (statuses as of 08/13/2022) [facility] of Past illness Narrative* Problem Noted Date Resolved Date Morbid (severe) obesity due to excess calories 0 12/10/2017 09/16/2021 Vitreous hemorrhage of right eye 11/01/2013 09/16/2021 Overview: right eye -- s/p bimedial recession 06/03/2013 s/p PPV, EL OD 07/19/2013 documented as of this encounter (statuses as of 08/25/2022) [facility] of Past illness Narrative* Problem Noted Date Resolved Date Morbid (severe) obesity due to excess calories 0 12/10/2017 09/16/2021 Vitreous hemorrhage of right eye 11/01/2013 09/16/2021 Overview: right eye -- s/p bimedial recession 06/03/2013 s/p PPV, EL OD 07/19/2013 documented as of this encounter (statuses as of 09/05/2022) [facility] of Past illness Narrative* Problem Noted Date Resolved Date Morbid (severe) obesity due to excess calories 0 12/10/2017 09/16/2021 Vitreous hemorrhage of right eye 11/01/2013 09/16/2021 Overview: right eye -- s/p bimedial recession 06/03/2013 s/p PPV, EL OD 07/19/2013 documented as of this encounter (statuses as of 09/05/2022) [facility] of Past illness Narrative* Problem Noted Date Resolved Date Morbid (severe) obesity due to excess calories 0 12/10/2017 09/16/2021 Vitreous hemorrhage of right eye 11/01/2013 09/16/2021 Overview: right eye -- s/p bimedial recession 06/03/2013 s/p PPV, EL OD 07/19/2013 documented as of this encounter (statuses as of 09/24/2022) [facility] History of Past illness Narrative* Problem Noted Date Resolved Date Morbid (severe) obesity due to excess calories 0 12/10/2017 09/16/2021 Vitreous hemorrhage of right eye 11/01/2013 09/16/2021 Overview: right eye -- s/p bimedial recession 06/03/2013 s/p PPV, EL OD 07/19/2013 documented as of this encounter (statuses as of 09/26/2022) [facility] of Past illness Narrative* Problem Noted Date Resolved Date Morbid (severe) obesity due to excess calories 0 12/10/2017 09/16/2021 Vitreous hemorrhage of right eye 11/01/2013 09/16/2021 Overview: right eye -- s/p bimedial recession 06/03/2013 s/p PPV, EL OD 07/19/2013 documented as of this encounter (statuses as of 10/02/2022) [facility] illness Narrative* Problem Noted Date Resolved Date Morbid (severe) obesity due to excess calories 0 12/10/2017 09/16/2021 Vitreous hemorrhage of right eye 11/01/2013 09/16/2021 Overview: right eye -- s/p bimedial recession 06/03/2013 s/p PPV, EL OD 07/19/2013 documented as of this encounter (statuses as of 10/07/2022) [facility] History of Past illness Narrative* Problem Noted Date Resolved Date Morbid (severe) obesity due to excess calories 0 12/10/2017 09/16/2021 Vitreous hemorrhage of right eye 11/01/2013 09/16/2021 Overview: right eye -- s/p bimedial recession 06/03/2013 s/p PPV, EL OD 07/19/2013 documented as of this encounter (statuses as of 10/08/2022) [facility] History of Past illness Narrative* Problem Noted Date Resolved Date Morbid (severe) obesity due to excess calories 0 12/10/2017 09/16/2021 Vitreous hemorrhage of right eye 11/01/2013 09/16/2021 Overview: right eye -- s/p bimedial recession 06/03/2013 s/p PPV, EL OD 07/19/2013 documented as of this encounter (statuses as of 10/15/2022) [facility] of Past illness Narrative* Problem Noted Date Resolved Date Morbid (severe) obesity due to excess calories 0 12/10/2017 09/16/2021 Vitreous hemorrhage of right eye 11/01/2013 09/16/2021 Overview: right eye -- s/p bimedial recession 06/03/2013 s/p PPV, EL OD 07/19/2013 documented as of this encounter (statuses as of 10/24/2022) [facility] of Past illness Narrative* Problem Noted Date Resolved Date Morbid (severe) obesity due to excess calories 0 12/10/2017 09/16/2021 Vitreous hemorrhage of right eye 11/01/2013 09/16/2021 Overview: right eye -- s/p bimedial recession 06/03/2013 s/p PPV, EL OD 07/19/2013 documented as of this encounter (statuses as of 11/05/2022) [facility] of Past illness Narrative* Problem Noted Date Resolved Date Morbid (severe) obesity due to excess calories 0 12/10/2017 09/16/2021 Vitreous hemorrhage of right eye 11/01/2013 09/16/2021 Overview: right eye -- s/p bimedial recession 06/03/2013 s/p PPV, EL OD 07/19/2013 documented as of this encounter (statuses as of 11/06/2022) [facility] of Past illness Narrative* Problem Noted Date Resolved Date Morbid (severe) obesity due to excess calories 0 12/10/2017 09/16/2021 Vitreous hemorrhage of right eye 11/01/2013 09/16/2021 Overview: right eye -- s/p bimedial recession 06/03/2013 s/p PPV, EL OD 07/19/2013 documented as of this encounter (statuses as of 11/06/2022) [facility] of Past illness Narrative* Problem Noted Date Resolved Date Morbid (severe) obesity due to excess calories 0 12/10/2017 09/16/2021 Vitreous hemorrhage of right eye 11/01/2013 09/16/2021 Overview: right eye -- s/p bimedial recession 06/03/2013 s/p PPV, EL OD 07/19/2013 documented as of this encounter (statuses as of 11/14/2022) [facility] of Past illness Narrative* Problem Noted Date Resolved Date Morbid (severe) obesity due to excess calories 0 12/10/2017 09/16/2021 Vitreous hemorrhage of right eye 11/01/2013 09/16/2021 Overview: right eye -- s/p bimedial recession 06/03/2013 s/p PPV, EL OD 07/19/2013 documented as of this encounter (statuses as of 11/14/2022) [facility] of Past illness Narrative* Problem Noted Date Resolved Date Morbid (severe) obesity due to excess calories 0 12/10/2017 09/16/2021 Vitreous hemorrhage of right eye 11/01/2013 09/16/2021 Overview: right eye -- s/p bimedial recession 06/03/2013 s/p PPV, EL OD 07/19/2013 documented as of this encounter (statuses as of 12/08/2022) [facility] of Past illness Narrative* Problem Noted Date Resolved Date Morbid (severe) obesity due to excess calories 0 12/10/2017 09/16/2021 Vitreous hemorrhage of right eye 11/01/2013 09/16/2021 Overview: right eye -- s/p bimedial recession 06/03/2013 s/p PPV, EL OD 07/19/2013 documented as of this encounter (statuses as of 01/13/2023) [facility] of Past illness Narrative* Problem Noted Date Resolved Date Morbid (severe) obesity due to excess calories 0 12/10/2017 09/16/2021 Vitreous hemorrhage of right eye 11/01/2013 09/16/2021 Overview: right eye -- s/p bimedial recession 06/03/2013 s/p PPV, EL OD 07/19/2013 documented as of this encounter (statuses as of 01/23/2023) [facility] History of Past illness Narrative* Problem Noted Date Resolved Date Morbid (severe) obesity due to excess calories 0 12/10/2017 09/16/2021 Vitreous hemorrhage of right eye 11/01/2013 09/16/2021 Overview: right eye -- s/p bimedial recession 06/03/2013 s/p PPV, EL OD 07/19/2013 documented as of this encounter (statuses as of 02/03/2023) [facility] History of Past illness Narrative* Problem Noted Date Resolved Date Morbid (severe) obesity due to excess calories 0 12/10/2017 09/16/2021 Vitreous hemorrhage of right eye 11/01/2013 09/16/2021 Overview: right eye -- s/p bimedial recession 06/03/2013 s/p PPV, EL OD 07/19/2013 documented as of this encounter (statuses as of 03/13/2023) [facility] of Past illness Narrative* Problem Noted Date Diagnosed Date Resolved Date Morbid (severe) obesity due to excess calories 12/10/2017 09/16/2021 Vitreous hemorrhage of right eye 11/01/2013 09/16/2021 Overview: right eye -- s/p bimedial recession 06/03/2013 s/p PPV, EL OD 07/19/2013 documented as of this encounter (statuses as of 04/02/2023) [facility] History of Past illness Narrative* Problem Noted Date Diagnosed Date Resolved Date Morbid (severe) obesity due to excess calories 12/10/2017 09/16/2021 Vitreous hemorrhage of right eye 11/01/2013 09/16/2021 Overview: right eye -- s/p bimedial recession 06/03/2013 s/p PPV, EL OD 07/19/2013 documented as of this encounter (statuses as of 05/02/2023) [facility] of Past illness Narrative* Problem Noted Date Diagnosed Date Resolved Date Morbid (severe) obesity due to excess calories 12/10/2017 09/16/2021 Vitreous hemorrhage of right eye 11/01/2013 09/16/2021 Overview: right eye -- s/p bimedial recession 06/03/2013 s/p PPV, EL OD 07/19/2013 documented as of this encounter (statuses as of 05/21/2023) [facility] of Past illness Narrative* Problem Noted Date Diagnosed Date Resolved Date Morbid (severe) obesity due to excess calories 12/10/2017 09/16/2021 Vitreous hemorrhage of right eye 11/01/2013 09/16/2021 Overview: right eye -- s/p bimedial recession 06/03/2013 s/p PPV, EL OD 07/19/2013 documented as of this encounter (statuses as of 06/04/2023) [facility] of Past illness Narrative* Problem Noted Date Diagnosed Date Resolved Date Morbid (severe) obesity due to excess calories 12/10/2017 09/16/2021 Vitreous hemorrhage of right eye 11/01/2013 09/16/2021 Overview: right eye -- s/p bimedial recession 06/03/2013 s/p PPV, EL OD 07/19/2013 documented as of this encounter (statuses as of 07/26/2023) [facility] of Past illness Narrative* Problem Noted Date Diagnosed Date Resolved Date Morbid (severe) obesity due to excess calories 12/10/2017 09/16/2021 Vitreous hemorrhage of right eye 11/01/2013 09/16/2021 Overview: right eye -- s/p bimedial recession 06/03/2013 s/p PPV, EL OD 07/19/2013 documented as of this encounter (statuses as of 11/06/2023) [facility] Diagnosis Diabetes mellitus type 2, controlled, without complications (HCC) Type II or unspecified type diabetes mellitus without mention of complication, not stated as uncontrolled Pure hypercholesterolemia [facility] Diagnosis Hypercalcemia- Primary Pure hypercholesterolemia Essential hypertension, benign Vitamin D deficiency Unspecified vitamin D deficiency Tachycardia Tachycardia, unspecified Onychomycosis Dermatophytosis of nail Controlled type 2 diabetes mellitus without complication, unspecified whether clarity developer insulin use (HCC) Anxiety Anxiety state, unspecified New onset a-fib (HCC) Atrial fibrillation documented in this encounter [facility] note* Diagnosis Encounter for screening mammogram for breast cancer documented in this encounter [facility] note* Diagnosis History of recent hospitalization- Primary Personal history of unspecified disease New onset a-fib (HCC) Atrial fibrillation Controlled type 2 diabetes mellitus without complication, unspecified whether nursing home insulin use (HCC) Essential hypertension, benign documented in this encounter [facility] note* Diagnosis Controlled type 2 diabetes mellitus without complication (HCC) Type II or unspecified type diabetes mellitus without mention of complication, not stated as uncontrolled documented in this encounter [facility] note* Diagnosis Hypercalcemia- Primary Pure hypercholesterolemia Controlled type 2 diabetes mellitus without complication, unspecified whether nursing home insulin use ([facility]) Elevated liver enzymes Other nonspecific abnormal serum enzyme levels Essential hypertension, benign documented in this encounter [facility] note* Diagnosis Controlled type 2 diabetes mellitus without complication, without long-term current use of insulin (HCC)- Primary Essential hypertension, benign Atrial fibrillation, unspecified type (HCC) Other fatigue Intolerance to cold Other general symptoms Anemia, unspecified type Pure hypercholesterolemia documented in this encounter [facility] note* Diagnosis Controlled type 2 diabetes mellitus without complication, without long-term current use of insulin (HCC) documented in this encounter [facility] note* Diagnosis Controlled type 2 diabetes mellitus [...] stated as uncontrolled documented in this encounter [facility] note* Diagnosis Anemia, unspecified type- Primary Positive occult stool blood test Nonspecific abnormal finding in stool contents documented in this encounter [facility] note* Diagnosis Medication management Encounter for long-term (current) use of other medications documented in this encounter [facility] note* Diagnosis Controlled type 2 diabetes mellitus without complication, without long-term current use of insulin (HCC)- Primary Essential hypertension, benign Function kidney decreased Unspecified disorder of kidney and ureter Hypothyroidism, unspecified type Medication management Encounter for long-term (current) use of other medications documented in this encounter [facility] note* Diagnosis Controlled type 2 diabetes mellitus without complication, without long-term current use of insulin (HCC)- Primary Hypothyroidism, unspecified type Medication management Encounter for long-term (current) use of other medications Chronic kidney disease, stage 3a (HCC) documented in this encounter [facility] note* Diagnosis Hypothyroidism, unspecified type- Primary documented in this encounter [facility] note* Diagnosis Diabetes mellitus type 2, controlled, without complications (HCC) Type II or unspecified type diabetes mellitus without mention of complication, not stated as uncontrolled documented in this encounter [facility] note* Diagnosis Type 2 diabetes mellitus with chronic kidney disease, with long-term current use of insulin, unspecified CKD stage (HCC)- Primary Essential hypertension, benign Hypothyroidism, unspecified type Pure hypercholesterolemia documented in this encounter [facility] note* Diagnosis Essential hypertension, benign- Primary Atrial fibrillation, unspecified type (HCC) Hypothyroidism, unspecified type Controlled type 2 diabetes mellitus without complication, without long-term current use of insulin (HCC) Pure hypercholesterolemia documented in this encounter [facility] note* Diagnosis Function kidney decreased Unspecified disorder of kidney and ureter documented in this encounter [facility] note* Diagnosis Pure hypercholesterolemia documented in this encounter [facility] for referral (narrative)* Outpatient Procedure (Routine) - Authorized Specialty Diagnoses / Procedures Referred By Jimbo t Referred To [facility] Diagnoses Tachycardia Procedures ECG COMPLETE ECG ROUTINE ECG W/LEAST 12 LDS W/I&R Anayeli Panda MD [address] [place] [address] [facility] [place] [address] [place] [id number] Referral ID Status Reason Start Date Expiration Date Visits Requested Visits Authorized [id number] Authorized Auto-Generat ed Referral 03/03/2022 03/03/2023 1 1 [facility] for referral (narrative)* Diagnostic Procedure Only (Routine) - Pending Review Specialty Diagnoses / Procedures Referred By Contac t Referred To Contact [facility] Diagnoses Encounter for screening mammogram for breast cancer Procedures DWAYNE SCREENING SCREENING MAMMOGRAPHY BI 2-VIEW BREAST INC CAD Anayeli Panda MD [address] [place] [address] [facility] [address] [place] [address] Referral ID Status Reason Start Date Expiration Date Visits Requested Visits Authorized [id number] Pending Review Auto-Generat ed Referral 03/19/2022 04/18/2023 1 1 [facility] for referral (narrative)* Diagnostic Procedure Only (Routine) - Closed Specialty Diagnoses / Procedures Referred By Contac t Referred To Contact [facility] Diagnoses Function kidney decreased Procedures US KIDNEY/BLADDER US RETROPERITONEAL REAL TIME W/IMAGE COMPLETE Radha Reyes APRN.LINEN GRADER [address] [place] [address] [place] [address] Referral ID Status Reason Start Date Expiration Date V isits Requested Visits Authorized [id number] Closed Auto-Generate d Referral 09/08/2022 10/08/2023 1 1 [facility] Reason for Referral Specialty Diagnoses / Procedures Referred By Contac t Referred To Contact General Surgery Diagnoses Anemia, unspecified type Positive occult stool blood test Procedures CONSULT TO GENERAL SURGERY OFFICE/OUTPATIENT [facility] 60-74 MINUTES Radha Reyes APRN.LINEN GRADER [address] [place] [address] Referral ID Status Reason Start Date Expiration Date Visits Requested Visits Authorized [id number] Authorized PCP Requested Referral 10/15/2022 10/15/2023 1 1 Specialty Diagnoses / Procedures Referred By Contac t Referred To Contact Endocrinology Diagnoses Hypothyroidism, unspecified type Procedures CONSULT TO ENDOCRINOLOGY OFFICE/OUTPATIENT [facility] MDM 60-74 MINUTES Radha Reyes APRN.LINEN GRADER [address] [place] [address] Referral ID Status Reason Start Date Expiration Date Visits Requested Visits Authorized [id number] Authorized PCP Requested Referral 12/08/2022 12/08/2023 1 [...] or prosecute any alcohol or drug abuse patient.[facility] Center[facility] the event this information is protected by the Federal Confidentiality of Alcohol and Drug Abuse Patient Records regulations: The Federal rules restrict any use of the information to criminally investigate or prosecute any alcohol or drug abuse patient.[facility] CenterIn the event this information is protected by the Federal Confidentiality of Alcohol and Drug Abuse Patient Records regulations: The Federal rules restrict any use of the information to criminally investigate or prosecute any alcohol or drug abuse patient.[facility] CenterIn the event this information is protected by the Federal Confidentiality of Alcohol and Drug Abuse Patient Records regulations: The Federal rules restrict any use of the information to criminally investigate or prosecute any alcohol or drug abuse patient.[facility] CenterIn the event this information is protected by the Federal Confidentiality of Alcohol and Drug Abuse Patient Records regulations: The Federal rules restrict any use of the information to criminally investigate or prosecute any alcohol or drug abuse patient.[facility] CenterIn the event this information is protected by the Federal Confidentiality of Alcohol and Drug Abuse Patient Records regulations: The Federal rules restrict any use of the information to criminally investigate or prosecute any alcohol or drug abuse patient.[facility] CenterIn the event this information is protected by the Federal Confidentiality of Alcohol and Drug Abuse Patient Records regulations: The Federal rules restrict any use of the information to criminally investigate or prosecute any alcohol or drug abuse patient.[facility] CenterIn the event this information is protected by the Federal Confidentiality of Alcohol and Drug Abuse Patient Records regulations: The Federal rules restrict any use of the information to criminally investigate or prosecute any alcohol or drug abuse patient.[facility] CenterIn the event this information is protected by the Federal Confidentiality of Alcohol and Drug Abuse Patient Records regulations: The Federal rules restrict any use of the information to criminally investigate or prosecute any alcohol or drug abuse patient.[facility] CenterIn the event this information is protected by the Federal Confidentiality of Alcohol and Drug Abuse Patient Records regulations: The Federal rules restrict any use of the information to criminally investigate or prosecute any alcohol or drug abuse patient.[facility] CenterIn the event this information is protected by the Federal Confidentiality of Alcohol and Drug Abuse Patient Records regulations: The Federal rules restrict any use of the information to criminally investigate or prosecute any alcohol or drug abuse patient.[facility] CenterIn the event this information is protected by the Federal Confidentiality of Alcohol and Drug Abuse Patient Records regulations: The Federal rules restrict any use of the information to criminally investigate or prosecute any alcohol or drug abuse patient.[facility] CenterIn the event this information is protected by the Federal Confidentiality of Alcohol and Drug Abuse Patient Records regulations: The Federal rules restrict any use of the information to criminally investigate or prosecute any alcohol or drug abuse patient.[facility] CenterIn the event this information is protected by the Federal Confidentiality of Alcohol and Drug Abuse Patient Records regulations: The Federal rules restrict any use of the information to criminally investigate or prosecute any alcohol or drug abuse patient.[facility] CenterIn the event this information is protected by the Federal Confidentiality of Alcohol and Drug Abuse Patient Records regulations: The Federal rules restrict any use of the information to criminally investigate or prosecute any alcohol or drug abuse patient.[facility] CenterIn the event this information is protected by the Federal Confidentiality of Alcohol and Drug Abuse Patient Records regulations: The Federal rules restrict any use of the information to criminally investigate or prosecute any alcohol or drug abuse patient.[facility] CenterIn the event this information is protected by the Federal Confidentiality of Alcohol and Drug Abuse Patient Records regulations: The Federal rules restrict any use of the information to criminally investigate or prosecute any alcohol or drug abuse patient.[facility] CenterIn the event this information is protected by the Federal Confidentiality of Alcohol and Drug Abuse Patient Records regulations: The Federal rules restrict any use of the information to criminally investigate or prosecute any alcohol or drug abuse patient.[facility] CenterIn the event this information is protected by the Federal Confidentiality of Alcohol and Drug Abuse Patient Records regulations: The Federal rules restrict any use of the information to criminally investigate or prosecute any alcohol or drug abuse patient.[facility] CenterIn the event this information is protected by the Federal Confidentiality of Alcohol and Drug Abuse Patient Records regulations: The Federal rules restrict any use of the information to criminally investigate or prosecute any alcohol or drug abuse patient.[facility] CenterIn the event this information is protected by the Federal Confidentiality of Alcohol and Drug Abuse Patient Records regulations: The Federal rules restrict any use of the information to criminally investigate or prosecute any alcohol or drug abuse patient.[facility] CenterIn the event this information is protected by the Federal Confidentiality of Alcohol and Drug Abuse Patient Records regulations: The Federal rules restrict any use of the information to criminally investigate or prosecute any alcohol or drug abuse patient.[facility] CenterIn the event this information is protected by the Federal Confidentiality of Alcohol and Drug Abuse Patient Records regulations: The Federal rules restrict any use of the information to criminally investigate or prosecute any alcohol or drug abuse patient.[facility] CenterIn the event this information is protected by the Federal Confidentiality of Alcohol and Drug Abuse Patient Records regulations: The Federal rules restrict any use of the information to criminally investigate or prosecute any alcohol or drug abuse patient.[facility] CenterIn the event this information is protected by the Federal Confidentiality of Alcohol and Drug Abuse Patient Records regulations: The Federal rules restrict any use of the information to criminally investigate or prosecute any alcohol or drug abuse patient.[facility] CenterIn the event this information is protected by the Federal Confidentiality of Alcohol and Drug Abuse Patient Records regulations: The Federal rules restrict any use of the information to criminally investigate or prosecute any alcohol or drug abuse patient.[facility] CenterIn the event this information is protected by the Federal Confidentiality of Alcohol and Drug Abuse Patient Records regulations: The Federal rules restrict any use of the information to criminally investigate or prosecute any alcohol or drug abuse patient.[facility] CenterIn the event this information is protected by the Federal Confidentiality of Alcohol and Drug Abuse Patient Records regulations: The Federal rules restrict any use of the information to criminally investigate or prosecute any alcohol or drug abuse patient.[facility] CenterIn the event this information is protected by the Federal Confidentiality of Alcohol and Drug Abuse Patient Records regulations: The Federal rules restrict any use of the information to criminally investigate or prosecute any alcohol or drug abuse patient.[facility] CenterIn the event this information is protected by the Federal Confidentiality of Alcohol and Drug Abuse Patient Records regulations: The Federal rules restrict any use of the information to criminally investigate or prosecute any alcohol or drug abuse patient.[facility] CenterIn the event this information is protected by the Federal Confidentiality of Alcohol and Drug Abuse Patient Records regulations: The Federal rules restrict any use of the information to criminally investigate or prosecute any alcohol or drug abuse patient.[facility] CenterIn the event this information is protected by the Federal Confidentiality of Alcohol and Drug Abuse Patient Records regulations: The Federal rules restrict any use of the information to criminally investigate or prosecute any alcohol or drug abuse patient.[facility] CenterIn the event this information is protected by the Federal Confidentiality of Alcohol and Drug Abuse Patient Records regulations: The Federal rules restrict any use of the information to criminally investigate or prosecute any alcohol or drug abuse patient.[facility] Care Teams (unrecognized sec tion and content) Engineering Clerk Relationship Specialty Start Date End Date Anayeli Panda MD [address] [place] [address] PCP - General Internal Medicine 05/18/17 Engineering Clerk Relationship Specialty Start Date End Date Anayeli Panda MD [address], [place] [id number] PCP - General Internal Medicine 05/18/17 Engineering Clerk Relationship Specialty Start Date End Date Anayeli Panda MD [address] [place] [address] PCP - General Internal Medicine 05/18/17 Engineering Clerk Relationship Specialty Start Date End Date Anayeli Panda MD [address] [place] [address] PCP - General Internal Medicine 05/18/17 Engineering Clerk Relationship Specialty Start Date End Date Anayeli Panda MD [address] [place] [address] PCP - General Internal Medicine 05/18/17 Engineering Clerk Relationship Specialty Start Date End Date Anayeli Panda MD [address] [place] [address] PCP - General Internal Medicine 05/18/17 Engineering Clerk Relationship Specialty Start Date End Date Anayeli Panda MD [address] [place] [address] PCP - General Internal Medicine 05/18/17 Engineering Clerk Relationship Specialty Start Date End Date Anayeli Panda MD [address] [place] [address] PCP - General Internal Medicine 05/18/17 Engineering Clerk Relationship Specialty Start Date End Date Anayeli Panda MD [address] [place] [address] PCP - General Internal Medicine 05/18/17 Engineering Clerk Relationship Specialty Start Date End Date Anayeli Panda MD [address] [place] [address] PCP - General Internal Medicine 05/18/17 Engineering Clerk Relationship Specialty Start Date End Date Anayeli Panda MD [address] [place] [address] PCP - General Internal Medicine 05/18/17 Engineering Clerk Relationship Specialty Start Date End Date Anayeli Panda MD [address] [place] [address] PCP - General Internal Medicine 05/18/17 Engineering Clerk Relationship Specialty Start Date End Date Anayeli Panda MD [address] [place] [address] PCP - General Internal Medicine 05/18/17 Engineering Clerk Relationship Specialty Start Date End Date Anayeli Panda MD [address] [place] [address] PCP - General Internal Medicine 05/18/17 Engineering Clerk Relationship Specialty Start Date End Date Anayeli Panda MD [address] [place] [address] PCP - General Internal Medicine 05/18/17 Engineering Clerk Relationship Specialty Start Date End Date Anayeli Panda MD [address] [place] [address] PCP - General Internal Medicine 05/18/17 Engineering Clerk Relationship Specialty Start Date End Date Anayeli Panda MD [address] [place] [address] PCP - General Internal Medicine 05/18/17 Engineering Clerk Relationship Specialty Start Date End Date Anayeli Panda MD [address] [place] [address] PCP - General Internal Medicine 05/18/17 Engineering Clerk Relationship Specialty Start Date End Date Anayeli Panda MD [address] [place] [address] PCP - General Internal Medicine 05/18/17 Engineering Clerk Relationship Specialty Start Date End Date Anayeli Panda MD [address] [place] [address] PCP - General Internal Medicine 05/18/17 Engineering Clerk Relationship Specialty Start Date End Date Anayeli Panda MD [address] [place], [place] [id number] PCP - General Internal Medicine 05/18/17 Reason for Visit (unrecogniz ed section and content) Reason Comments Recheck [facility] follow up, afib Reason Comments Results [...] RETROPERITONEAL REAL TIME W/IMAGE COMPLETE Radha Reyes APRN.[employer] [address] [place] [address] [place] [address] Referral ID Status Reason Start Date Expiration Date V isits Requested Visits Authorized [id number] Closed Auto-Generate d Referral 09/08/2022 10/08/2023 1 1 Reason Onset Date Comments Refill Request 11/06/2023 INFORMATION SOURCE (unrecogn ized section and content) DATE CREATED AUTHOR AUTHOR'S ORGANIZ ATION 06/04/2023 [facility] FOR RECORDS PERTAINING TO PATIENTS WHO ARE [...] BE BASED ON THE PRIMARY CLINICAL RECORDS. [facility] FacilityRest[facility]. provides no warranty or guarantee of the accuracy or completeness of information in this document.
--- NOTE | 2023-11-11 12:15 | PCM.OP.PRO ---
Procedure Report Date of Procedure: 11/11/23 DC cardioversion. 78-year-old lady with a history of persistent atrial fibrillation with reduced left ventricular systolic function. Patient has been on therapeutic anticoagulation long-term presents the cardiac catheterization lab in the postabsorptive nonsedated state. Informed consent was obtained. Patient was seen by Dr. Sky of the critical care division. 6 mg of intravenous etomidate was administered and 200 J of biphasic DC cardioversion energy were applied with prompt reversal to sinus rhythm. Patient tolerated the procedure well. EKG confirmed the same. Conclusion: Successful DC cardioversion from atrial fibrillation to sinus rhythm. Continue as per office protocol.
--- NOTE | 2023-11-11 13:10 | PRO.PCM_ITS ---
Procedure Report Date of Procedure: 11/11/23 CONSCIOUS SEDATION REPORT DATE OF SERVICE: November 11, 2023 BRIEF HISTORY OF PRESENT ILLNESS: The patient is a 78-year-old female who presented to [facility] due to a history of atrial fibrillation. Patient underwent a prior cardioversion in March 2022. She denied any prior anesthetic complications. Her last surface echocardiogram revealed an ejection fraction of approximately 20%. The patient is systemically anticoagulated on Eliquis. She denied a history of obstructive sleep apnea, COPD or asthma. PHYSICAL EXAMINATION: VITAL SIGNS: Reviewed and were acceptable. GENERAL: The patient is a female, in no apparent distress, speaking in full sentences. HEENT: Normocephalic, atraumatic. Mucous membranes are moist and pink. Good mouth opening noted. Trachea is midline. Good neck mobility. CHEST: S1, S2 irregularly irregular. No murmurs, rubs or gallops were noted. LUNGS: Clear to auscultation bilaterally without appreciable wheezes, rales or rhonchi. ABDOMEN: Soft, nontender, nondistended. Positive bowel sounds. EXTREMITIES: There is no clubbing, cyanosis or edema. ASA Class: II DESCRIPTION OF PROCEDURE: After confirmation of informed consent, the patient's anesthesia plan was reviewed in detail. Etomidate was chosen. Risks and benefits were reviewed and the patient agreed to proceed. At 1205, the patient was given 6 mg of etomidate. The patient achieved an appropriate level of sedation and was given a 200 joule synchronized cardioversion by Dr. Mireles at the bedside. This was successful in achieving normal sinus rhythm. The patient was monitored until 1218, at which time she reached her baseline mental status and function. The patient tolerated the procedure well. COMPLICATIONS: None ESTIMATED BLOOD LOSS: None RECOMMENDATIONS: Okay to recover in usual fashion. Procedures Pulmonary 9xxxx: [id number] Con Sedation
== END 2023-11-11 13:05 | disposition home or self-care (01) ==
PROVIDERS: PCP Nurse Practitioner; Referring Provider Internal Medicine Cardiovascular Disease; Visit Provider Internal Medicine Cardiovascular Disease
DX: I48.19 Other persistent atrial fibrillation (principal); I11.0 Hypertensive heart disease with heart failure; I50.22 Chronic systolic (congestive) heart failure; I42.8 Other cardiomyopathies
CPT/HCPCS: 92960; 93005; J7040

== ENCOUNTER → 2023-12-14 | Outpatient (CLI) | payer MEDICARE, SELFPAY ==
--- NOTE | 2023-12-14 13:45 | CT_ITS ---
STUDY: CTA CHEST REASON FOR EXAM: Female, 78 years old. r/o PE RADIATION DOSAGE (If Supplied By Facility): CTDIvol = ( 14.46 ) mGy, DLP = ( 423.64 ) mGycm TECHNIQUE: The examination was performed with the intravenous administration of IV 100mL Isovue-370. Post-processing of the angiographic images was performed, with multiplanar reformation and 3D reconstruction. Individualized dose optimization techniques were used for this CT. COMPARISON: Comparison is made with prior study dated March 03, 2022. FINDINGS: Normal enhancement of the main pulmonary artery and right and left pulmonary arteries. Normal enhancement of the bilateral peripheral pulmonary arteries. There is no demonstrated pulmonary embolism. There is minimal atherosclerotic calcification of the aortic arch with tortuosity. There is no demonstrated aortic dissection. There are calcifications of the coronary arteries. Normal mediastinum. Normal hilar regions. Normal visualized trachea and bronchi. The lungs are well expanded. Scarring in the anterior left apex. Normal pleura. Normal chest wall structures. There are degenerative changes of thoracic spine. Moderate sized hiatal hernia. CT/CTA Chest W/WO Contrast IMPRESSION: No evidence of pulmonary embolism. Scarring in the left lung apex. Hiatal hernia. Electronically Signed: Luiz Barbosa MD at 15:33 EDT ,
[2023-12-14 14:18] LABS: CREATININE FINGERSTICK 1.3 mg/dL (0.55-1.02)
== END | disposition home or self-care (01) ==
LOC: CT 13:44
PROVIDERS: PCP Nurse Practitioner; Referring Provider Physician Assistant Medical; Visit Provider Physician Assistant Medical
DX: I51.7 Cardiomegaly (principal)
CPT/HCPCS: 71275; Q9967; A4216

== ENCOUNTER → 2024-01-20 | Outpatient (CLI) | payer MEDICARE, SELFPAY ==
--- NOTE | 2024-01-20 14:48 | ECHOD_ITS ---
Reason For Study: DILATED CMP Procedure This was a 2D Doppler, Color Flow transthoracic echocardiogram. Exam performed in department. Left Ventricle Normal LV size. The estimated ejection fraction is 50 %. There is mild global hypokinesis of the left ventricle. Right Ventricle Normal RV size. Normal systolic function. Atria The left atrium is mildly enlarged. The right atrium is mildly enlarged. Mitral Valve Normal mitral valve. Mild (1+) eccentric mitral valve insufficiency. Tricuspid Valve Normal tricuspid valve. Moderate (2+) tricuspid valve insufficiency. Moderate pulmonary hypertension. Pulmonary artery systolic pressure is 58 mmHg. Aortic Valve Trisinus/trileaflet aortic valve. Pulmonic Valve Normal pulmonic valve. Mild (1+) pulmonic valve insufficiency. Great Vessels Normal aortic root. The pulmonary artery is normal size. Normal inferior vena cava. Pericardium/Pleural No pericardial effusion. MMode/2D Measurements & Calculations LVIDd: 4.9 cm IVSd: 1.1 cm Ao root diam: 3.3 cm LVIDs: 3.6 cm LVPWd: 1.1 cm RVDd: 3.3 cm FS: 26.3 % LAV(MOD-bp): 80.4 ml LVAd ap4: 18.5 cm2 SV(MOD-sp4): 26.9 ml LAV(MOD-bp) Indexed: 45.4 ml/m2 LVLd ap4: 6.5 cm LAV(MOD-sp2): 89.3 ml EDV(MOD-sp4): 45.3 ml LAV(MOD-sp4): 70.2 ml EDV(sp4-el): 44.6 ml LVAs ap4: 10.8 cm2 LVLs ap4: 5.4 cm ESV(MOD-sp4): 18.5 ml ESV(sp4-el): 18.0 ml EF(MOD-sp4): 59.2 % EF(sp4-el): 59.5 % SV(sp4-el): 26.5 ml LA A4 area: 24.1 cm2 LA dimension(2D): 4.7 cm RA A4 area: 21.2 cm2 TAPSE: 1.7 cm Doppler Measurements & Calculations MV E max josemanuel: 124.6 cm/sec Lat Peak E' Josemanuel: 10.2 cm/sec Med Peak E' Josemanuel: 5.8 cm/sec E/E' lat: 12.2 E/E' med: 21.5 MV V2 max: 133.7 cm/sec Ao V2 max: 126.7 cm/sec LV V1 max: 70.5 cm/sec MV max P.1 mmHg Ao max P.5 mmHg LV V1 max P.0 mmHg MV V2 mean: 70.9 cm/sec Ao V2 mean: 93.4 cm/sec LV V1 mean P.2 mmHg MV mean P.3 mmHg Ao mean P.9 mmHg LV V1 mean: 53.0 cm/sec MV V2 VTI: 21.0 cm Ao V2 VTI: 25.4 cm LV V1 VTI: 13.4 cm AV (velocity ratio): 0.53 MR max josemanuel: 481.2 cm/sec PA V2 max: 96.7 cm/sec TR max josemanuel: 361.0 cm/sec MR max P.6 mmHg PA V2 mean: 66.7 cm/sec TR max P.1 mmHg MR mean josemanuel: 367.6 cm/sec PA V2 VTI: 17.9 cm MR mean P.9 mmHg MR VTI: 149.7 cm ECHO/Echo Complete Interpretation Summary There is mild global hypokinesis of the left ventricle. The estimated ejection fraction is 50 %. Normal LV size. The left atrium is mildly enlarged. The right atrium is mildly enlarged. Moderate pulmonary hypertension. Pulmonary artery systolic pressure is 58 mmHg. Compared to previous study, the left ventricular systolic function has improved .. Ordering Physician: Isabella Hylton Referring Physician: JOSE REYES Performed By: Vivien Lynn, MONICA, RVT
== END | disposition home or self-care (01) ==
LOC: CVS 14:47
PROVIDERS: PCP Nurse Practitioner; Referring Provider Physician Assistant Medical; Visit Provider Physician Assistant Medical
DX: I42.8 Other cardiomyopathies (principal); I50.9 Heart failure, unspecified; I48.19 Other persistent atrial fibrillation; I51.7 Cardiomegaly
CPT/HCPCS: 93306

== ENCOUNTER → 2025-06-05 | Outpatient (CLI) | payer MEDICARE, SELFPAY ==
[2025-06-05 13:02] LABS: AST(SGOT) 17 U/L (<=31); Alanine Aminotransfer ALT/SGPT 8 U/L (<=34); Albumin, Serum 4.3 g/dL (3.4-4.8); Alkaline Phosphatase 79 U/L (35-104); Bilirubin, Direct 0.18 mg/dL (0.00-0.30); Cholesterol 196 mg/dL (<=200); Globulin 3.9 g/dL (2.2-4.2); Low Density Lipoprotein Calc. 107 mg/dL; Triglycerides 129 mg/dL; Very Low Density Lipoprotein 26 mg/dL (5-40); cholesterol:hdl ratio screen 3.08
== END | disposition home or self-care (01) ==
LOC: LAB 11:10
PROVIDERS: PCP Nurse Practitioner; Referring Provider Internal Medicine Cardiovascular Disease; Visit Provider Internal Medicine Cardiovascular Disease
DX: E78.5 Hyperlipidemia, unspecified (principal)
CPT/HCPCS: 36415; 80061; 80076